=== PATIENT | male | born 1940 | race Caucasian/White ===

== ENCOUNTER 2016-12-25 09:09 | Emergency (ER) | payer MEDICARE, BC ==
[~2016-12-25] VITALS: Ht 180.3 cm; Wt 97.5 kg
[~2016-12-25 09:09] MED LIST: ALLO300T PO; ASPI325T11 PO; DORZ1DRO5 OP; EXEN10PE3 SQ; FENO145T PO; GABA-586 PO; GLIP5TAB22 PO; METF-620 PO; METF500T PO; METF500T4 PO; METO-269 PO; NAPR500T3 PO; OMEG-33 PO; OMEP40CA5 PO; PANT40TA3 PO; SERT100T8 PO
--- NOTE | 2016-12-25 10:11 | RAD ---
AP pelvis to include AP and lateral radiographs of the right hip 12/25/2016 Clinical history: Right hip pain post fall. An AP digital radiograph of the pelvis to include both hips was obtained. AP and lateral digital radiographs of the right hip were obtained. No pelvic bone fracture is seen. Both hips are intact. Specifically no fracture or dislocation of the right hip is seen. Degenerative changes are seen involving the lower lumbar spine and both hips. Impression: No fracture or dislocation is seen.
[2016-12-25] MEDS ORDERED: fentaNYL PF VIAL 100 MCG/2 ML VIAL IV PRN (10:45)
[2016-12-25] MEDS ORDERED: IV NORMAL SALINE 500ML BAG 500 ML IV ONE (11:00)
[2016-12-25 11:04] VITALS: BP 170/71
--- NOTE | 2016-12-25 11:55 | RAD ---
CT scan of the pelvis without contrast 12/25/2016 Clinical history: Pelvic and right hip pain post fall. Technique: Unenhanced, contiguous, 0.65 mm axial sections were obtained through the pelvis and both hips. 3 mm reconstructed sagittal, axial and coronal images were obtained. One or more of the following individualized dose reduction techniques were utilized for this study: 1. Automated exposure control. 2. Adjustment of the mA and/or kV according to patient size. 3. Use of iterative reconstruction technique. Findings: Comparison is made to the patient's radiographs of the pelvis and right hip performed earlier today. No pelvic bone fracture is seen. No fracture or dislocation of either hip is seen. Moderate degenerative changes are seen involving the lower lumbar spine. Mild to moderate degenerative changes are seen involving both SI joints and both hips. Mild atherosclerotic calcification of the distal abdominal aorta and its branches is noted. Multiple diverticula are seen involving the sigmoid colon. No inflammatory changes are seen in the adjacent fat. No free fluid is seen within the pelvis. No pelvic hematoma is seen. Impression: No acute abnormality is seen.
[2016-12-25] MEDS ORDERED: HYDR-2758 PO (12:40)
--- NOTE | 2016-12-25 12:40 | PHYS DOC ---
Past Medical History Past Medical History: Diabetes-Type II, Hypertension Additional Past Medical Histor: SHINGLES Past Surgical History: Other Additional Past Surgical Histo: R LEG SX, BACK SX Alcohol Use: None Drug Use: None Adult General Chief Complaint Chief Complaint: HIP PAIN HPI HPI 76-year-old male presenting to the emergency department after sustaining a mechanical fall. She reports injuring his right hip. He denies head injury. He denies being on blood thinners. He was able to ambulate after the event. His pain is worse with walking. Alleviated by rest. He denies chest pain or shortness of breath. Review of systems was negative for abdominal pain nausea vomiting or any other injuries. All other review of systems is negative unless otherwise noted in history of present illness. ED course: 76-year-old male presenting with right hip pain after falling. Initially x-ray of the hip unremarkable. CT obtained given patient's pain with weight. CT unremarkable for occult injury. Patient was able to ambulate in the emergency department. He is prescribed oral pain medications to follow-up with his doctor in 2-3 days. If his pain continues the patient will likely need an MRI of his hip. The patient was then discharged home in stable condition to follow up with their primary care physician over the next 2-3 days. They were to return if their symptoms worsened or if they were concerned for any reason. [id number] discharge instructions and return precautions were given. Patient' s questions were answered to their satisfaction. Patient is comfortable plan. Review of Systems Review of Systems SEE ABOVE. Current Medications Current Medications Current Medications Medications (Trade) Dose Ordered Sig/Jaylan Start Time Stop Time Status Last Admin Dose Admin Fentanyl Citrate (Fentanyl 2ml Vial) 50 mcg PRN Q30MIN PRN 12/25/16 10:45 12/25/16 23:00 12/25/16 11:06 50 MCG Sodium Chloride 500 ml @ 500 mls/hr 1X ONCE 12/25/16 11:00 12/25/16 11:59 DC 12/25/16 11:05 500 MLS/HR Allergies Allergies Allergies Coded Allergies Type Severity Reaction Last Updated Verified Penicillins Allergy Intermediate 10/11/13 Yes metronidazole Allergy Intermediate 10/11/13 Yes niacin Allergy Intermediate 10/11/13 Yes Physical Exam Physical Exam SEE ABOVE Constitutional: Well developed, well nourished, no acute distress, non-toxic appearance. [] HENT: Normocephalic, atraumatic, bilateral external ears normal, oropharynx moist, no oral exudates, nose normal. [] Eyes: PERRLA, EOMI, conjunctiva normal, no discharge. [] Neck: Normal range of motion, no tenderness, supple, no stridor. [] Cardiovascular:Heart rate regular rhythm, no murmur [] Lungs & Thorax: Bilateral breath sounds clear to auscultation [] Abdomen: Bowel sounds normal, soft, no tenderness, no masses, no pulsatile masses. [] Skin: Warm, dry, no erythema, no rash. [] Back: No tenderness, no CVA tenderness. [] Extremities: The patient's right lower extremity is warm and well perfused with palpable pulse. 2 second cap refill. Mild pain with passive range of motion of the right hip. Otherwise nontender knee with normal range of motion. Neurologic: Alert and oriented X 3, normal motor function, normal sensory function, no focal deficits noted. [] Psychologic: Affect normal, judgement normal, mood normal. [] Current Patient Data Vital Signs Vital Signs Date Time Temp Pulse Resp B/P (MAP) Pulse Ox O2 Delivery O2 Flow Rate FiO2 12/25/16 11:06 18 97 Room Air 12/25/16 09:54 98.9 65 98.9 EKG EKG [] Radiology/Procedures Radiology/Procedures [] Course & Med Decision Making Course & Med Decision Making Pertinent Labs and Imaging studies reviewed. (See chart for details) [] Dragon Disclaimer Dragon Disclaimer This electronic medical record was generated, in whole or in part, using a voice recognition dictation system. Departure Departure Impression: Primary Impression: Right hip pain Additional Impression: Fall Disposition: 01 HOME, SELF-CARE Condition: STABLE Referrals: ANASTASIYA OH MD (PCP) Patient Instructions: Hip Pain Additional Instructions: Thank you for allowing us to participate in your care today. Followup with your primary care physician in 3 days if your symptoms do not improve. Call your Primary Doctor tomorrow and inform them of your visit today. If you do not have a primary care provider you can ask for a list of our primary care providers. Return to the emergency department you have any new or concerning findings. If your symptoms do not resolve in the next 5-7 days you may need an MRI of the hip. This should be evaluated by the primary care physician and any necessary consulting services for continued management within a few days after discharge. Return to emergency room if you have any new or concerning symptoms including but not limited to fever, chills, nausea, vomiting, intractable pain, any new rashes, chest pain, shortness of air, uncontrolled bleeding, difficulty breathing, and/or vision loss. You may have been prescribed medication that can change in your level of thinking and ability to operate machinery. These medications include hydrocodone and Ativan. Also, Benadryl has been known to do this as well. Be sure to check with your pharmacist and ask if the medications you've prescribed can affect your level of consciousness. I recommend not operating heavy machinery or driving while on medication such as these. Scripts Hydrocodone Bit/Acetaminophen (HYDROCODONE-APAP 5-325 ) 1 Each Tablet 1 TAB PO PRN Q6HRS Y for PAIN, #15 TAB 0 Refills Be careful as this medication may cause you to be drowsy or tired. Do not drive on this medication. Prov: NALDO MARIE MD 12/25/16 Problem Qualifiers NALDO MARIE MD Dec 25, 2016 12:40
== END 2016-12-25 12:52 | disposition home or self-care (01) ==
LOC: ER 09:09
DX: S79.911A Unspecified injury of right hip, initial encounter (principal); E11.9 Type 2 diabetes mellitus without complications; I10 Essential (primary) hypertension; Z88.0 Allergy status to penicillin; Z88.8 Allergy status to other drugs, medicaments and biological substances; W19.XXXA Unspecified fall, initial encounter; Y93.89 Activity, other specified; Y92.89 Other specified places as the place of occurrence of the external cause; Y99.8 Other external cause status
CPT/HCPCS: 72192; 73502; 96361; 96374; 99284; J3010; J7040

== ENCOUNTER 2017-08-23 09:45 | Observation (INO) | payer MEDICARE, BC ==
[2017-08-23 10:00] LABS: POC GLUCOSE 232 mg/dL (70-99)
[2017-08-23 10:32] LABS: ADD MAN DIFF? NO
[2017-08-23 10:36] LABS: BASO # 0.1 x10^3/uL (0.0-0.2); BASO % 1 % (0-3); EOS # 0.2 x10^3/uL (0.0-0.7); EOS % 2 % (0-3); HEMATOCRIT 40.8 % (39.0-53.0); HEMOGLOBIN 14.1 g/dL (13.0-17.5); LYMPH % 11 % (24-48); MEAN CORPUSCULAR HEMOGLOBIN 32 pg (25-35); MEAN CORPUSCULAR HGB CONC 35 g/dL (31-37); MEAN CORPUSCULAR VOLUME 94 fL (79-100); MONO # 0.8 x10^3/uL (0.0-1.1); MONO % 9 % (0-9); NEUT # 6.9 x10^3uL (1.8-7.7); NEUT % 78 % (31-73); PLATELET COUNT 210 x10^3/uL (140-400); RED BLOOD COUNT 4.34 x10^6/uL (4.30-5.70); RED CELL DISTRIBUTION WIDTH 13.9 % (11.5-14.5); WHITE BLOOD COUNT 8.9 x10^3/uL (4.0-11.0)
[2017-08-23 10:43] LABS: ANION GAP 11 (6-14); BLOOD UREA NITROGEN 25 mg/dL (8-26); BUN/CREATININE RATIO 18 (6-20); CALCIUM 9.8 mg/dL (8.5-10.1); CARBON DIOXIDE 29 mmol/L (21-32); CHLORIDE 102 mmol/L (98-107); CREATININE 1.4 mg/dL (0.7-1.3); GFR 49.4; GLUCOSE 235 mg/dL (70-99); POTASSIUM 3.8 mmol/L (3.5-5.1); SODIUM 142 mmol/L (136-145)
[2017-08-23 10:49] LABS: ALBUMIN 3.7 g/dL (3.4-5.0); ALBUMIN/GLOBULIN RATIO 0.8 (1.0-1.7); ALK PHOS 68 U/L (46-116); ALT (SGPT) 44 U/L (16-63); AST (SGOT) 60 U/L (15-37); TOTAL BILIRUBIN 0.7 mg/dL (0.2-1.0); TOTAL PROTEIN 8.3 g/dL (6.4-8.2)
[2017-08-23 10:51] LABS: INR 1.1 (0.8-1.1); PARTIAL THROMBOPLASTIN TIME 33 SEC (24-38); PROTHROMBIN TIME PATIENT 13.4 SEC (11.7-14.0)
[2017-08-23 10:53] LABS: TROPONINI < 0.017 ng/mL (0.000-0.055)
[2017-08-23 15:44] LABS: BILIRUBIN,URINE SMALL (NEG); CLARITY,URINE CLEAR; COLOR,URINE AMBER; GLUCOSE,URINE >=1000 mg/dL (NEG); NITRITE,URINE NEGATIVE (NEG); PH,URINE 5.5; PROTEIN,URINE >=300 mg/dL (NEG-TRACE); UROBILINOGEN,URINE 0.2 mg/dL (0.2 mg/dL)
[2017-08-23 15:49] LABS: AMPHETAMINE/METHAMPHETAMINE NEG (NEG); BARBITURATES NEG (NEG); BENZODIAZEPINES NEG (NEG); CANNABINOIDS NEG (NEG); COCAINE NEG (NEG); ETHANOL, URINE NEG (NEG); METHADONE NEG (NEG); OPIATES NEG (NEG); PHENCYCLIDINE NEG (NEG)
[2017-08-23 15:54] LABS: RBC,URINE 20-40 /HPF (0-2); WBC,URINE 20-40 /HPF (0-4)
[2017-08-23 15:55] LABS: BACTERIA,URINE 0 /HPF (0-FEW); HYALINE CASTS, URINE MODERATE /HPF
[2017-08-23] MEDS ORDERED: MAGNESIUM HYDROXIDE 2,400 MG/30 ML ORAL.SUSP. PO (17:15)
[2017-08-23] MEDS ORDERED: ACETAMINOPHEN 325 MG TABLET. PO (17:15)
[2017-08-23] MEDS: SERTRALINE 50 MG TABLET. PO (18:40)
[2017-08-23] MEDS: ALLOPURINOL 100 MG TABLET. PO (18:40)
[2017-08-23] MEDS: OMEGA-3 FATTY ACIDS/FISH OIL 1,000 MG CAPSULE. PO (18:40)
[2017-08-23] MEDS: ASPIRIN 325 MG TABLET PO (18:40)
[2017-08-23] MEDS: METOPROLOL SUCC 24HR ER 50 MG TAB.ER.24H. PO (18:41)
[2017-08-23] MEDS: PANTOPRAZOLE 40 MG TABLET.DR. PO (18:41)
[2017-08-23] MEDS: INSULIN LISPRO 300 UNITS/3 ML INSULN.PEN. SQ (18:45)
[2017-08-23] MEDS: GABAPENTIN 300 MG CAPSULE. PO (21:44)
[2017-08-23] MEDS: ENOXAPARIN 40 MG/0.4 ML SYRINGE. SQ (21:44)
[2017-08-23] MEDS: INSULIN GLARGINE 300 UNITS/3 ML INSULN.PEN. SQ (21:48)
[2017-08-24 05:43] LABS: CHOLESTEROL 167 mg/dL (0-200); HDLC 21 mg/dL (40-60); LDLC 86 mg/dL (0-100); NON-HDL CHOLESTEROL 146 mg/dL (0-129); TRIGLYCERIDES 298 mg/dL (0-150); VLDLC 60 mg/dL (0-40)
[2017-08-24 05:55] LABS: THYROID STIM HORMONE (TSH) 0.619 uIU/mL (0.358-3.74)
[2017-08-24 06:50] LABS: POC GLUCOSE 218 mg/dL (70-99)
[2017-08-24 06:52] LABS: POC GLUCOSE 264 mg/dL (70-99)
[2017-08-24 08:56] LABS: POC GLUCOSE 239 mg/dL (70-99)
[2017-08-24 09:16] LABS: VITAMIN-B12 514 pg/mL (247-911)
[2017-08-24] MEDS: SERTRALINE 50 MG TABLET. PO (09:28)
[2017-08-24] MEDS: GABAPENTIN 300 MG CAPSULE. PO ×3 (09:28→20:26)
[2017-08-24] MEDS: PANTOPRAZOLE 40 MG TABLET.DR. PO (09:29)
[2017-08-24] MEDS: metFORMIN XR 500 MG TAB.ER.24H PO (09:29)
[2017-08-24] MEDS: ALLOPURINOL 100 MG TABLET. PO (09:29)
[2017-08-24] MEDS: ASPIRIN 325 MG TABLET PO (09:29)
[2017-08-24] MEDS: OMEGA-3 FATTY ACIDS/FISH OIL 1,000 MG CAPSULE. PO (09:29)
[2017-08-24] MEDS: glipiZIDE ER 2.5 MG TAB.ER.24 PO (09:30)
[2017-08-24] MEDS: METOPROLOL SUCC 24HR ER 50 MG TAB.ER.24H. PO (09:31)
[2017-08-24 10:26] LABS: HEMOGLOBIN A1C 7.5 % (4.8-5.6)
[2017-08-24 12:01] LABS: POC GLUCOSE 364 mg/dL (70-99)
[2017-08-24] MEDS: INSULIN LISPRO 300 UNITS/3 ML INSULN.PEN. SQ ×2 (12:04→17:37)
[2017-08-24 17:05] LABS: POC GLUCOSE 188 mg/dL (70-99)
[2017-08-24 18:50] LABS: CREATINE KINASE 408 U/L (39-308)
[2017-08-24 19:14] LABS: VITAMIN-B12 592 pg/mL (247-911)
[2017-08-24] MEDS: ATORVASTATIN CALCIUM 10 MG TABLET. PO (20:26)
[2017-08-24] MEDS: ENOXAPARIN 40 MG/0.4 ML SYRINGE. SQ (20:26)
[2017-08-24] MEDS: INSULIN GLARGINE 300 UNITS/3 ML INSULN.PEN. SQ (20:31)
[2017-08-24 20:32] LABS: POC GLUCOSE 190 mg/dL (70-99)
[2017-08-25] MEDS: glipiZIDE ER 2.5 MG TAB.ER.24 PO (08:47)
[2017-08-25] MEDS: ALLOPURINOL 100 MG TABLET. PO (08:47)
[2017-08-25] MEDS: PANTOPRAZOLE 40 MG TABLET.DR. PO (08:49)
[2017-08-25] MEDS: ASPIRIN 325 MG TABLET PO (08:49)
[2017-08-25] MEDS: SERTRALINE 50 MG TABLET. PO (08:49)
[2017-08-25] MEDS: METOPROLOL SUCC 24HR ER 50 MG TAB.ER.24H. PO (08:49)
[2017-08-25] MEDS: OMEGA-3 FATTY ACIDS/FISH OIL 1,000 MG CAPSULE. PO (08:49)
[2017-08-25] MEDS: GABAPENTIN 300 MG CAPSULE. PO ×3 (08:49→22:59)
[2017-08-25] MEDS: metFORMIN XR 500 MG TAB.ER.24H PO (08:49)
[2017-08-25] MEDS: INSULIN LISPRO 300 UNITS/3 ML INSULN.PEN. SQ ×3 (08:51→17:15)
[2017-08-25 11:58] LABS: POC GLUCOSE 258 mg/dL (70-99)
[2017-08-25 17:19] LABS: POC GLUCOSE 250 mg/dL (70-99)
[2017-08-25 17:19] LABS: POC GLUCOSE 211 mg/dL (70-99)
[2017-08-25 21:02] LABS: POC GLUCOSE 295 mg/dL (70-99)
[2017-08-25] MEDS: INSULIN GLARGINE 300 UNITS/3 ML INSULN.PEN. SQ (22:56)
[2017-08-25] MEDS: ENOXAPARIN 40 MG/0.4 ML SYRINGE. SQ (22:58)
[2017-08-25] MEDS: ATORVASTATIN CALCIUM 10 MG TABLET. PO (22:58)
[2017-08-26 04:19] LABS: POC GLUCOSE 208 mg/dL (70-99)
[2017-08-26] MEDS: PANTOPRAZOLE 40 MG TABLET.DR. PO (07:56)
[2017-08-26] MEDS: INSULIN LISPRO 300 UNITS/3 ML INSULN.PEN. SQ ×2 (07:59→11:30)
[2017-08-26 08:04] LABS: POC GLUCOSE 195 mg/dL (70-99)
[2017-08-26] MEDS: ASPIRIN 325 MG TABLET PO (08:43)
[2017-08-26] MEDS: OMEGA-3 FATTY ACIDS/FISH OIL 1,000 MG CAPSULE. PO (08:43)
[2017-08-26] MEDS: ALLOPURINOL 100 MG TABLET. PO (08:43)
[2017-08-26] MEDS: metFORMIN XR 500 MG TAB.ER.24H PO (08:43)
[2017-08-26] MEDS: SERTRALINE 50 MG TABLET. PO (08:44)
[2017-08-26] MEDS: GABAPENTIN 300 MG CAPSULE. PO ×2 (08:44→13:42)
[2017-08-26] MEDS: METOPROLOL SUCC 24HR ER 50 MG TAB.ER.24H. PO (08:44)
[2017-08-26] MEDS: glipiZIDE ER 2.5 MG TAB.ER.24 PO (08:45)
[2017-08-26 09:13] LABS: PLATELET COUNT 215 x10^3/uL (140-400)
[2017-08-26 09:20] LABS: GFR 45.6
[2017-08-26 09:20] LABS: CREATININE 1.5 mg/dL (0.7-1.3)
[2017-08-26 11:24] LABS: POC GLUCOSE 214 mg/dL (70-99)
== END 2017-08-26 15:00 | disposition home health service (06) ==
LOC: ER 09:45 → ED HOLD 14:01 → 5 NORTH 16:33
PROVIDERS: Internal Medicine
DX: R29.6 Repeated falls (principal); E11.42 Type 2 diabetes mellitus with diabetic polyneuropathy; E11.65 Type 2 diabetes mellitus with hyperglycemia; E11.21 Type 2 diabetes mellitus with diabetic nephropathy; E11.22 Type 2 diabetes mellitus with diabetic chronic kidney disease; E04.2 Nontoxic multinodular goiter; E78.5 Hyperlipidemia, unspecified; G89.29 Other chronic pain; I12.9 Hypertensive chronic kidney disease with stage 1 through stage 4 chronic kidney disease, or unspecified chronic kidney disease; I25.10 Atherosclerotic heart disease of native coronary artery without angina pectoris; I25.2 Old myocardial infarction; K21.9 Gastro-esophageal reflux disease without esophagitis; N18.3 Chronic kidney disease, stage 3 (moderate); N39.0 Urinary tract infection, site not specified; E66.9 Obesity, unspecified
CPT/HCPCS: 36415; 70450; 70551; 71046; 72125; 80053; 80061; 80307; 81001; 82306; 82550; 82565; 82607; 82962; 83036; 84443; 84484; 85025; 85049; 85610; 85730; 87086; 92523-GN; 93005; 95816; 96372; 97110-GP; 97116-GP; 97162-GP; 97166-GO; 97530-GO; 97535-GO; 99285-25; G0378; G0379; G8987-CJ-GO; G8988-CI-GO; G9168-CK-GN; G9169-CK-GN; J1650; J1815

== ENCOUNTER 2018-01-25 15:12 | Inpatient (IN) | payer MEDICARE ==
[~2018-01-25] VITALS: Ht 180.3 cm; Wt 88.5 kg
[~2018-01-25 15:12] MED LIST changes: +ALLO100T PO; -DORZ1DRO5 OP; +DORZ1DRO5 OU; +GLIP2.5T4 PO; +HYDR-2758 PO; -METF-620 PO; +METF10007 PO; +METF500T16 PO; +METF500T3 PO; -METF500T4 PO; +NAPR-514 PO; -NAPR500T3 PO
[2018-01-25] MEDS ORDERED: VANCOMYCIN PER PHARMACY MC ONE (15:30)
--- NOTE | 2018-01-25 15:42 | PHYS DOC ---
Past Medical History Past Medical History: Diabetes-Type II, Hypertension, Other Additional Past Medical Histor: SHINGLES Past Surgical History: Other Additional Past Surgical Histo: R LEG SX, BACK SX Alcohol Use: None Drug Use: None Adult General Chief Complaint Chief Complaint: CELLULITIS HPI HPI 77-year-old male presents for evaluation of diabetic ulcer and cellulitis to the left foot. He was sent to the emergency room by , his parts clerk plant maintenance. Patient states his blood sugars have been in the low 200s. He denies any pain but states he noticed yesterday that the foot was red. Denies any injuries. Denies fevers or vomiting. Review of Systems Review of Systems Constitutional: Denies fever or chills [] Respiratory: Denies cough or shortness of breath [] Cardiovascular: No additional information not addressed in HPI [] GI: Denies abdominal pain, nausea, vomiting, bloody stools or diarrhea [] Musculoskeletal: Denies back pain or joint pain [] Integument: Denies rash or skin lesions [] Neurologic: Denies headache, focal weakness or sensory changes [] All other systems were reviewed and found to be within normal limits, except as documented in this note. Current Medications Current Medications Current Medications Medications (Trade) Dose Ordered Sig/Jaylan Start Time Stop Time Status Last Admin Dose Admin Clindamycin Phosphate 50 ml @ 100 mls/hr 1X ONCE 01/25/18 15:45 01/25/18 16:14 DC 01/25/18 16:17 100 MLS/HR Vancomycin HCl (Vanco Per Pharmacy) 1 each 1X ONCE 01/25/18 15:30 01/25/18 15:31 UNV Vancomycin HCl 2 gm/Sodium Chloride 500 ml @ 250 mls/hr 1X ONCE 01/25/18 15:45 01/25/18 17:44 DC 01/25/18 16:50 250 MLS/HR Allergies Allergies Allergies Coded Allergies Type Severity Reaction Last Updated Verified Penicillins Allergy Intermediate 01/25/18 Yes metronidazole Allergy Intermediate 01/25/18 Yes niacin Allergy Intermediate 01/25/18 Yes Physical Exam Physical Exam Constitutional: Well developed, well nourished, no acute distress, non-toxic appearance. [] Neck: Normal range of motion, no tenderness, supple, no stridor. [] Cardiovascular:Heart rate regular rhythm, no murmur [] Lungs & Thorax: Bilateral breath sounds clear to auscultation [] Skin: DORSAL ASPECT LEFT FOOT ULCERATION, PURULENT DRAINAGE, SURROUNDING ERYTHEMA AND WARMTH CONSISTENT C CELLULITIS Extremities: No tenderness, no cyanosis, no clubbing, ROM intact, no edema. [] Neurologic: Alert and oriented X 3, normal motor function, normal sensory function, no focal deficits noted. [] Psychologic: Affect normal, judgement normal, mood normal. [] Current Patient Data Vital Signs Vital Signs Date Time Temp Pulse Resp B/P (MAP) Pulse Ox O2 Delivery O2 Flow Rate FiO2 01/25/18 16:20 76 18 153/75 (101) 94 Room Air 01/25/18 15:20 98.0 98.0 Lab Values Laboratory Tests Test 01/25/18 15:50 White Blood Count 11.2 x10^3/uL (4.0-11.0) H Red Blood Count 4.40 x10^6/uL (4.30-5.70) Hemoglobin 14.5 g/dL (13.0-17.5) Hematocrit 41.4 % (39.0-53.0) Mean Corpuscular Volume 94 fL (79-100) Mean Corpuscular Hemoglobin 33 pg (25-35) Mean Corpuscular Hemoglobin Concent 35 g/dL (31-37) Red Cell Distribution Width 13.7 % (11.5-14.5) Platelet Count 178 x10^3/uL (140-400) Neutrophils (%) (Auto) 80 % (31-73) H Lymphocytes (%) (Auto) 9 % (24-48) L Monocytes (%) (Auto) 7 % (0-9) Eosinophils (%) (Auto) 2 % (0-3) Basophils (%) (Auto) 1 % (0-3) Neutrophils # (Auto) 9.0 x10^3uL (1.8-7.7) H Lymphocytes # (Auto) 1.1 x10^3/uL (1.0-4.8) Monocytes # (Auto) 0.8 x10^3/uL (0.0-1.1) Eosinophils # (Auto) 0.2 x10^3/uL (0.0-0.7) Basophils # (Auto) 0.1 x10^3/uL (0.0-0.2) Sodium Level 138 mmol/L (136-145) Potassium Level 4.6 mmol/L (3.5-5.1) Chloride Level 100 mmol/L (98-107) Carbon Dioxide Level 29 mmol/L (21-32) Anion Gap 9 (6-14) Blood Urea Nitrogen 25 mg/dL (8-26) Creatinine 1.6 mg/dL (0.7-1.3) H Estimated GFR (Cockcroft-Gault) 42.3 BUN/Creatinine Ratio 16 (6-20) Glucose Level 243 mg/dL (70-99) H Calcium Level 10.0 mg/dL (8.5-10.1) Total Bilirubin 0.6 mg/dL (0.2-1.0) Aspartate Amino Transferase (AST) 21 U/L (15-37) Alanine Aminotransferase (ALT) 30 U/L (16-63) Alkaline Phosphatase 59 U/L (46-116) Total Protein 8.4 g/dL (6.4-8.2) H Albumin 4.0 g/dL (3.4-5.0) Albumin/Globulin Ratio 0.9 (1.0-1.7) L Laboratory Tests 01/25/18 15:50 Laboratory Tests 01/25/18 15:50 EKG EKG [] Radiology/Procedures Radiology/Procedures [PROCEDURE: FOOT LEFT 3V FOOT LEFT 3V Clinical Indication: Pain and swelling, pt is diabetic Comparison: Left foot, 3 views, November 16, 2014. Findings: Old healed fracture deformities with mild angulation of the distal tibia and fibula. Hammertoe deformities of all the toes. Mild dorsal soft tissue swelling is seen. Tiny calcaneal enthesophytes. Arterial calcifications. Tibiotalar DJD. No acute fracture. No bony erosion is seen. Os peroneum redemonstrated. IMPRESSION: No acute bone abnormality. Electronically signed by: Agus Muller MD (01/25/2018 4:14 PM) [id number] DICTATED and SIGNED BY: AGUS MULLER MD DATE: 01/25/18 1610 ] Course & Med Decision Making Course & Med Decision Making Pertinent Labs and Imaging studies reviewed. (See chart for details) [Patient is admitted to Dr. Arnett for IV antibiotics, infectious disease consulted. Patient is stable for admit.] Dragon Disclaimer Dragon Disclaimer This electronic medical record was generated, in whole or in part, using a voice recognition dictation system. Departure Departure Impression: Primary Impression: Cellulitis Additional Impression: Diabetic foot ulcer Disposition: 09 ADMITTED INPATIENT Admitting Physician: Other Condition: STABLE Referrals: ANASTASIYA ARNETT MD (PCP) Problem Qualifiers JADEN CARDENAS APRN Jan 25, 2018 15:42
[2018-01-25] MEDS ORDERED: VANCOMYCIN 2 GM in IV NORMAL SALINE 500ML BAG 500 ML IV ONE (15:45)
[2018-01-25] MEDS ORDERED: CLINDAMYCIN 600MG PREMIX 50 ML IV ONE (15:45)
[2018-01-25 16:15] LABS: BASO # 0.1 x10^3/uL (0.0-0.2); BASO % 1 % (0-3); EOS # 0.2 x10^3/uL (0.0-0.7); EOS % 2 % (0-3); HEMATOCRIT 41.4 % (39.0-53.0); HEMOGLOBIN 14.5 g/dL (13.0-17.5); LYMPH # 1.1 x10^3/uL (1.0-4.8); LYMPH % 9 % (24-48); MEAN CORPUSCULAR HEMOGLOBIN 33 pg (25-35); MEAN CORPUSCULAR HGB CONC 35 g/dL (31-37); MEAN CORPUSCULAR VOLUME 94 fL (79-100); MONO # 0.8 x10^3/uL (0.0-1.1); MONO % 7 % (0-9); NEUT % 80 % (31-73); PLATELET COUNT 178 x10^3/uL (140-400); RED CELL DISTRIBUTION WIDTH 13.7 % (11.5-14.5); WHITE BLOOD COUNT 11.2 x10^3/uL (4.0-11.0)
--- NOTE | 2018-01-25 16:16 | RAD ---
FOOT LEFT 3V Clinical Indication: Pain and swelling, pt is diabetic Comparison: Left foot, 3 views, November 16, 2014. Findings: Old healed fracture deformities with mild angulation of the distal tibia and fibula. Hammertoe deformities of all the toes. Mild dorsal soft tissue swelling is seen. Tiny calcaneal enthesophytes. Arterial calcifications. Tibiotalar DJD. No acute fracture. No bony erosion is seen. Os peroneum redemonstrated. IMPRESSION: No acute bone abnormality. Electronically signed by: Agus Muller MD (01/25/2018 4:14 PM) [id number]
[2018-01-25 16:44] LABS: CREATININE 1.6 mg/dL (0.7-1.3); GFR 42.3; POTASSIUM 4.6 mmol/L (3.5-5.1)
[2018-01-25 16:51] LABS: ALBUMIN/GLOBULIN RATIO 0.9 (1.0-1.7); TOTAL BILIRUBIN 0.6 mg/dL (0.2-1.0); TOTAL PROTEIN 8.4 g/dL (6.4-8.2)
--- NOTE | 2018-01-25 18:21 | PDOC ---
Provider Note Provider Note history and physical dictated # [id number] ANASTASIYA OH MD Jan 25, 2018 18:20
[2018-01-25] MEDS ORDERED: VANCOMYCIN PER PHARMACY MC PRN (18:30)
[2018-01-25] MEDS ORDERED: MAGNESIUM HYDROXIDE 2,400 MG/30 ML ORAL.SUSP. PO PRN (18:30)
[2018-01-25] MEDS ORDERED: HYDROcodone/APAP 5/325MG 1 TAB TABLET PO PRN (18:30)
--- NOTE | 2018-01-25 18:43 | HP ---
ADMIT DATE: 01/25/2018 HISTORY OF PRESENT ILLNESS: The patient is a 77-year-old white male with history of diabetes mellitus type 2 with diabetic nephropathy with chronic kidney disease stage 3, hypertension, hyperlipidemia, coronary artery disease, who noted a 2-day history of pain and redness in his left foot and saw his private sector executive today, Dr. Pop who noted that he had a diabetic foot ulcer with cellulitis involving his left foot, the ulcer was in the plantar aspect of his left foot. The patient was sent to the [facility] Emergency Room for IV antibiotics and evaluation and treatment and an MRI of the left foot to rule out osteomyelitis. In the Emergency Room, the x-ray of the left foot was negative for acute abnormality; however, his white count was slightly elevated over 11,000. He denied any fever or chills. Denied stepping on anything or developing of foot ulcer that he was aware of, but it is on the plantar side of his foot. He is therefore admitted for further evaluation of his left foot ulcer with cellulitis. ALLERGIES AND INTOLERANCES: INCLUDE PENICILLIN, FLAGYL AND NIACIN. HE HAS INTOLERANCE TO METFORMIN. MEDICATIONS: Include allopurinol 200 mg every day, aspirin 325 mg every day, atorvastatin 10 mg every day, Byetta 10 mg subcutaneous b.i.d., gabapentin 300 mg t.i.d., glipizide ER 10 mg every day, Lovaza 4 grams daily, metoprolol succinate 50 mg every day, Protonix 40 mg every day, sertraline 150 mg every day and TriCor 145 mg every day. PAST MEDICAL HISTORY: Significant for diabetes mellitus type 2 with nephropathy with chronic kidney disease stage 3, hypertension, hyperlipidemia, coronary artery disease, gout. He has a history of a multinodular goiter, gastroesophageal reflux disease and history of esophagitis, diverticulosis, depression and deep vein thrombosis in the left leg in 2006, open reduction and internal fixation for left tibial fracture, left tympanic membrane repair, laminectomy and right cataract extraction. SOCIAL HISTORY: Does not drink alcohol nor does he smoke cigarettes. He is . FAMILY HISTORY: Noncontributory. REVIEW OF SYSTEMS: GENERAL: He denies any fever, chills or sweats in the last 3 days. CARDIOVASCULAR: No chest pain. PULMONARY: No cough or shortness of breath. GASTROINTESTINAL: No constipation. SKIN: He has got the left foot ulcer and cellulitis in left foot. ENDOCRINE: He has diabetes mellitus. The rest of systems reviewed and negative except as stated in history of present illness. PHYSICAL EXAMINATION: VITAL SIGNS: Temperature is 98 degrees, apical pulse regular at 75, respiratory rate 20, blood pressure 146/69, oxygen saturation 97% on room air. HEENT: Eyes: Gaze is conjugate. Mouth: Tongue is midline. NECK: There is no cervical lymphadenopathy or thyroid enlargement. HEART: Reveals an S1, S2. There is no S3 or murmur. LUNGS: Clear. ABDOMEN: Obese and soft with no hepatosplenomegaly, masses or tenderness. EXTREMITIES: Lower extremities without edema. Examination of his left foot shows his dorsalis pedis pulse is 2+. On his left foot, he has got a plantar ulcer in the metatarsal area. It seems to be dry, but the nurse practitioner Emergency Room noted that there was purulent material coming out of it when she examined it and sent it for culture. He has got some redness and swelling in the plantar aspect of his foot and also in the dorsal aspect of his left foot. This is consistent with a cellulitis and he got hammertoes on the left side and right side. NEUROLOGIC: Revealed no focal weakness of the facial muscles or extremities. SKIN: He has got cellulitis in left foot. LABORATORY DATA: His white count was increased at 11.2, hemoglobin 14.5, platelet count 178,000; 80 polys, 9 lymphocytes. He had a serum sodium of 138, potassium 4.6, chloride 100, total CO2 of 29, BUN 25, creatinine 1.6, blood sugar 243. Liver function tests were normal. Albumin 4.0. An x-ray of the left foot showed no acute abnormality. He had some arterial calcifications. ASSESSMENT: 1. Left foot ulcer with cellulitis. 2. Diabetes mellitus type 2 with nephropathy. 3. Chronic kidney disease stage 3. 4. Hypertension. 5. Hyperlipidemia. 6. Coronary artery disease. 7. Leukocytosis. PLAN: At this time is to obtain a sed rate. We will consult Dr. Harvinder Sterling for Infectious Disease. We will get an MRI of his left foot to rule out any type of osteomyelitis and we will start him on IV meropenem and also Zyvox. We will hold off on vancomycin due to his chronic kidney disease. We will also wait for the cultures of his foot. We will admit him to the hospital as a full admit. We will resume most of his home medications and have to put him on a NovoLog insulin sliding scale. Apparently, he was given 2 grams of vancomycin IV in the Emergency Room and clindamycin 600 mg IV x 1, but I spoke with the nurse practitioner and recommended Zyvox and IV meropenem and repeat his CBC and BMP in the morning and monitor his blood sugars and put him on a diabetic diet. ANASTASIYA OH MD DR: SAMEER/blanka JOB#: [id number] / [id number]
[2018-01-25 19:00] VITALS: BP 126/99
--- NOTE | 2018-01-25 20:40 | EKG ---
[facility] [address] [place] [address] Test Date: 2018-01-25 Test Time: 19:33:05 Pat Name: TANK DEL REAL Department: Room: 444 1 Gender: M Automotive Refinish Technician: CAROL ANN : 1940 Requested By: ANASTASIYA OH Order Number: [id number] Reading MD: Glenn Altamirano MD Measurements Intervals [place] Rate: 74 P: 62 MT: 180 QRS: 7 QRSD: 84 T: 38 QT: 392 QTc: 436 Interpretive Statements SINUS RHYTHM NON-SPECIFIC ST/T CHANGES Electronically Signed On 01-26-2018 11:18:00 CDT by Glenn Altamirano MD
[2018-01-25] MEDS: LINEZOLID 600 MG TABLET PO SCH (21:54)
[2018-01-25] MEDS: GABAPENTIN 300 MG CAPSULE. PO SCH (21:54)
[2018-01-25] MEDS: MEROPENEM 500 MG in IV NORMAL SALINE 50ML 50 ML IV SCH (21:54)
[2018-01-25] MEDS: ATORVASTATIN CALCIUM 10 MG TABLET. PO SCH (21:55)
[2018-01-25 23:00] VITALS: BP_SYST 126; BP_SYST 128; BP_DIAS 97; BP_DIAS 99
[2018-01-26 03:00] VITALS: BP 124/97
[2018-01-26] MEDS: MEROPENEM 500 MG in IV NORMAL SALINE 50ML 50 ML IV SCH ×3 (05:49→21:10)
[2018-01-26] MEDS: HEPARIN for SUB-Q USE 5,000 UNIT/ML VIAL. SQ SCH ×2 (05:51→17:09)
[2018-01-26 06:14] LABS: BASO # 0.1 x10^3/uL (0.0-0.2); BASO % 1 % (0-3); EOS # 0.2 x10^3/uL (0.0-0.7); EOS % 3 % (0-3); HEMATOCRIT 38.2 % (39.0-53.0); HEMOGLOBIN 13.2 g/dL (13.0-17.5); LYMPH # 0.9 x10^3/uL (1.0-4.8); LYMPH % 12 % (24-48); MEAN CORPUSCULAR HEMOGLOBIN 33 pg (25-35); MEAN CORPUSCULAR HGB CONC 35 g/dL (31-37); MEAN CORPUSCULAR VOLUME 94 fL (79-100); MONO # 0.5 x10^3/uL (0.0-1.1); MONO % 7 % (0-9); NEUT # 5.6 x10^3uL (1.8-7.7); NEUT % 78 % (31-73); PLATELET COUNT 132 x10^3/uL (140-400); RED BLOOD COUNT 4.06 x10^6/uL (4.30-5.70); RED CELL DISTRIBUTION WIDTH 13.9 % (11.5-14.5); WHITE BLOOD COUNT 7.2 x10^3/uL (4.0-11.0)
[2018-01-26 06:30] LABS: CALCIUM 9.3 mg/dL (8.5-10.1); CREATININE 1.5 mg/dL (0.7-1.3); GFR 45.6; POTASSIUM 4.1 mmol/L (3.5-5.1)
[2018-01-26 07:00] VITALS: BP 123/60
[2018-01-26] MEDS ORDERED: INSULIN LISPRO 300 UNITS/3 ML INSULN.PEN. SQ SCH (08:00)
--- NOTE | 2018-01-26 08:16 | RAD ---
Portable chest, 01/25/2018: HISTORY: Hypertension Comparison is made to a study from 08/23/2017. The heart size and pulmonary vascularity are normal. No pulmonary infiltrates are seen. There is no evidence of pleural fluid. IMPRESSION: No acute cardiopulmonary abnormality is detected. Electronically signed by: Scar Vazquez MD (01/26/2018 8:13 AM) [facility]
[2018-01-26] MEDS: FENOFIBRATE,MICRONIZED 134 MG CAPSULE PO SCH (09:24)
[2018-01-26] MEDS: glipiZIDE ER 2.5 MG TAB.ER.24 PO SCH (09:25)
[2018-01-26] MEDS: LINEZOLID 600 MG TABLET PO SCH ×2 (09:25→21:09)
[2018-01-26] MEDS: SERTRALINE 50 MG TABLET. PO SCH (09:26)
[2018-01-26] MEDS: ASPIRIN 325 MG TABLET PO SCH (09:26)
[2018-01-26] MEDS: GABAPENTIN 300 MG CAPSULE. PO SCH ×3 (09:26→21:09)
[2018-01-26] MEDS: METOPROLOL SUCC 24HR ER 50 MG TAB.ER.24H. PO SCH (09:28)
[2018-01-26] MEDS: PANTOPRAZOLE 40 MG TABLET.DR. PO SCH (09:29)
[2018-01-26] MEDS: ACETAMINOPHEN 325 MG TABLET. PO PRN ×2 (09:29→21:09)
[2018-01-26] MEDS: ALLOPURINOL 100 MG TABLET. PO SCH (09:30)
--- NOTE | 2018-01-26 09:35 | PDOC ---
Infectious Disease Note Vital Sign Vital Signs Vital Signs Date Time Temp Pulse Resp B/P (MAP) Pulse Ox O2 Delivery O2 Flow Rate FiO2 01/26/18 03:00 97.7 70 14 124/97 (106) 96 Room Air 97.7 Labs Lab Laboratory Tests Test 01/25/18 15:50 01/25/18 21:27 01/26/18 05:42 White Blood Count 11.2 x10^3/uL (4.0-11.0) 7.2 x10^3/uL (4.0-11.0) Red Blood Count 4.40 x10^6/uL (4.30-5.70) 4.06 x10^6/uL (4.30-5.70) Hemoglobin 14.5 g/dL (13.0-17.5) 13.2 g/dL (13.0-17.5) Hematocrit 41.4 % (39.0-53.0) 38.2 % (39.0-53.0) Mean Corpuscular Volume 94 fL (79-100) 94 fL (79-100) Mean Corpuscular Hemoglobin 33 pg (25-35) 33 pg (25-35) Mean Corpuscular Hemoglobin Concent 35 g/dL (31-37) 35 g/dL (31-37) Red Cell Distribution Width 13.7 % (11.5-14.5) 13.9 % (11.5-14.5) Platelet Count 178 x10^3/uL (140-400) 132 x10^3/uL (140-400) Neutrophils (%) (Auto) 80 % (31-73) 78 % (31-73) Lymphocytes (%) (Auto) 9 % (24-48) 12 % (24-48) Monocytes (%) (Auto) 7 % (0-9) 7 % (0-9) Eosinophils (%) (Auto) 2 % (0-3) 3 % (0-3) Basophils (%) (Auto) 1 % (0-3) 1 % (0-3) Neutrophils # (Auto) 9.0 x10^3uL (1.8-7.7) 5.6 x10^3uL (1.8-7.7) Lymphocytes # (Auto) 1.1 x10^3/uL (1.0-4.8) 0.9 x10^3/uL (1.0-4.8) Monocytes # (Auto) 0.8 x10^3/uL (0.0-1.1) 0.5 x10^3/uL (0.0-1.1) Eosinophils # (Auto) 0.2 x10^3/uL (0.0-0.7) 0.2 x10^3/uL (0.0-0.7) Basophils # (Auto) 0.1 x10^3/uL (0.0-0.2) 0.1 x10^3/uL (0.0-0.2) Sodium Level 138 mmol/L (136-145) 137 mmol/L (136-145) Potassium Level 4.6 mmol/L (3.5-5.1) 4.1 mmol/L (3.5-5.1) Chloride Level 100 mmol/L (98-107) 101 mmol/L (98-107) Carbon Dioxide Level 29 mmol/L (21-32) 28 mmol/L (21-32) Anion Gap 9 (6-14) 8 (6-14) Blood Urea Nitrogen 25 mg/dL (8-26) 24 mg/dL (8-26) Creatinine 1.6 mg/dL (0.7-1.3) 1.5 mg/dL (0.7-1.3) Estimated GFR (Cockcroft-Gault) 42.3 45.6 BUN/Creatinine Ratio 16 (6-20) Glucose Level 243 mg/dL (70-99) 241 mg/dL (70-99) Calcium Level 10.0 mg/dL (8.5-10.1) 9.3 mg/dL (8.5-10.1) Total Bilirubin 0.6 mg/dL (0.2-1.0) Aspartate Amino Transf (AST/SGOT) 21 U/L (15-37) Alanine Aminotransferase (ALT/SGPT) 30 U/L (16-63) Alkaline Phosphatase 59 U/L (46-116) Total Protein 8.4 g/dL (6.4-8.2) Albumin 4.0 g/dL (3.4-5.0) Albumin/Globulin Ratio 0.9 (1.0-1.7) Glucose (Fingerstick) 234 mg/dL (70-99) Erythrocyte Sedimentation Rate 26 (0-15) Objective Assessment Left foot wound infection Left leg cellulitis Fever Leukocytosis DM CAD Plan Plan of Care zyvox and meropenem MRI off load supportive care ABRAM BENITES MD Jan 26, 2018 09:35
--- NOTE | 2018-01-26 10:53 | PDOC ---
PROGRESS NOTES Subjective Subjective feels better. febrile. temp 100.2 lab reviewed. sed rate 26. blood sugars high. [place] [facility] [place] Objective Objective Vital Signs Date Time Temp Pulse Resp B/P (MAP) Pulse Ox O2 Delivery O2 Flow Rate FiO2 01/26/18 09:28 70 124/97 01/26/18 07:00 100.2 18 94 Room Air 100.2 Intake and Output 01/26/18 07:00 Intake Total 50 ml Balance 50 ml Intake IV Total 50 ml # Voids 5 Physical Exam Abdomen: Soft Heart: Regular rate, Normal S1, Normal S2 Extremities: No edema General: Alert HEENT: Atraumatic Lungs: Clear to auscultation Neuro: Normal speech Psych/Mental Status: Mental status NL Skin: Other (plantar left foot wound and less redness dorsum left foot) Assessment Assessment Problems1. Infected Left foot ulcer with cellulitis. 2. Diabetes mellitus type 2 with nephropathy. 3. 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 Labs Laboratory Tests Test 01/25/18 15:50 01/25/18 21:27 01/26/18 05:42 White Blood Count 11.2 x10^3/uL (4.0-11.0) 7.2 x10^3/uL (4.0-11.0) Red Blood Count 4.40 x10^6/uL (4.30-5.70) 4.06 x10^6/uL (4.30-5.70) Hemoglobin 14.5 g/dL (13.0-17.5) 13.2 g/dL (13.0-17.5) Hematocrit 41.4 % (39.0-53.0) 38.2 % (39.0-53.0) Mean Corpuscular Volume 94 fL (79-100) 94 fL (79-100) Mean Corpuscular Hemoglobin 33 pg (25-35) 33 pg (25-35) Mean Corpuscular Hemoglobin Concent 35 g/dL (31-37) 35 g/dL (31-37) Red Cell Distribution Width 13.7 % (11.5-14.5) 13.9 % (11.5-14.5) Platelet Count 178 x10^3/uL (140-400) 132 x10^3/uL (140-400) Neutrophils (%) (Auto) 80 % (31-73) 78 % (31-73) Lymphocytes (%) (Auto) 9 % (24-48) 12 % (24-48) Monocytes (%) (Auto) 7 % (0-9) 7 % (0-9) Eosinophils (%) (Auto) 2 % (0-3) 3 % (0-3) Basophils (%) (Auto) 1 % (0-3) 1 % (0-3) Neutrophils # (Auto) 9.0 x10^3uL (1.8-7.7) 5.6 x10^3uL (1.8-7.7) Lymphocytes # (Auto) 1.1 x10^3/uL (1.0-4.8) 0.9 x10^3/uL (1.0-4.8) Monocytes # (Auto) 0.8 x10^3/uL (0.0-1.1) 0.5 x10^3/uL (0.0-1.1) Eosinophils # (Auto) 0.2 x10^3/uL (0.0-0.7) 0.2 x10^3/uL (0.0-0.7) Basophils # (Auto) 0.1 x10^3/uL (0.0-0.2) 0.1 x10^3/uL (0.0-0.2) Sodium Level 138 mmol/L (136-145) 137 mmol/L (136-145) Potassium Level 4.6 mmol/L (3.5-5.1) 4.1 mmol/L (3.5-5.1) Chloride Level 100 mmol/L (98-107) 101 mmol/L (98-107) Carbon Dioxide Level 29 mmol/L (21-32) 28 mmol/L (21-32) Anion Gap 9 (6-14) 8 (6-14) Blood Urea Nitrogen 25 mg/dL (8-26) 24 mg/dL (8-26) Creatinine 1.6 mg/dL (0.7-1.3) 1.5 mg/dL (0.7-1.3) Estimated GFR (Cockcroft-Gault) 42.3 45.6 BUN/Creatinine Ratio 16 (6-20) Glucose Level 243 mg/dL (70-99) 241 mg/dL (70-99) Calcium Level 10.0 mg/dL (8.5-10.1) 9.3 mg/dL (8.5-10.1) Total Bilirubin 0.6 mg/dL (0.2-1.0) Aspartate Amino Transf (AST/SGOT) 21 U/L (15-37) Alanine Aminotransferase (ALT/SGPT) 30 U/L (16-63) Alkaline Phosphatase 59 U/L (46-116) Total Protein 8.4 g/dL (6.4-8.2) Albumin 4.0 g/dL (3.4-5.0) Albumin/Globulin Ratio 0.9 (1.0-1.7) Glucose (Fingerstick) 234 mg/dL (70-99) Erythrocyte Sedimentation Rate 26 (0-15) Laboratory Tests Test 01/25/18 15:50 01/25/18 21:27 01/26/18 05:42 White Blood Count 11.2 x10^3/uL (4.0-11.0) 7.2 x10^3/uL (4.0-11.0) Red Blood Count 4.40 x10^6/uL (4.30-5.70) 4.06 x10^6/uL (4.30-5.70) Hemoglobin 14.5 g/dL (13.0-17.5) 13.2 g/dL (13.0-17.5) Hematocrit 41.4 % (39.0-53.0) 38.2 % (39.0-53.0) Mean Corpuscular Volume 94 fL (79-100) 94 fL (79-100) Mean Corpuscular Hemoglobin 33 pg (25-35) 33 pg (25-35) Mean Corpuscular Hemoglobin Concent 35 g/dL (31-37) 35 g/dL (31-37) Red Cell Distribution Width 13.7 % (11.5-14.5) 13.9 % (11.5-14.5) Platelet Count 178 x10^3/uL (140-400) 132 x10^3/uL (140-400) Neutrophils (%) (Auto) 80 % (31-73) 78 % (31-73) Lymphocytes (%) (Auto) 9 % (24-48) 12 % (24-48) Monocytes (%) (Auto) 7 % (0-9) 7 % (0-9) Eosinophils (%) (Auto) 2 % (0-3) 3 % (0-3) Basophils (%) (Auto) 1 % (0-3) 1 % (0-3) Neutrophils # (Auto) 9.0 x10^3uL (1.8-7.7) 5.6 x10^3uL (1.8-7.7) Lymphocytes # (Auto) 1.1 x10^3/uL (1.0-4.8) 0.9 x10^3/uL (1.0-4.8) Monocytes # (Auto) 0.8 x10^3/uL (0.0-1.1) 0.5 x10^3/uL (0.0-1.1) Eosinophils # (Auto) 0.2 x10^3/uL (0.0-0.7) 0.2 x10^3/uL (0.0-0.7) Basophils # (Auto) 0.1 x10^3/uL (0.0-0.2) 0.1 x10^3/uL (0.0-0.2) Sodium Level 138 mmol/L (136-145) 137 mmol/L (136-145) Potassium Level 4.6 mmol/L (3.5-5.1) 4.1 mmol/L (3.5-5.1) Chloride Level 100 mmol/L (98-107) 101 mmol/L (98-107) Carbon Dioxide Level 29 mmol/L (21-32) 28 mmol/L (21-32) Anion Gap 9 (6-14) 8 (6-14) Blood Urea Nitrogen 25 mg/dL (8-26) 24 mg/dL (8-26) Creatinine 1.6 mg/dL (0.7-1.3) 1.5 mg/dL (0.7-1.3) Estimated GFR (Cockcroft-Gault) 42.3 45.6 BUN/Creatinine Ratio 16 (6-20) Glucose Level 243 mg/dL (70-99) 241 mg/dL (70-99) Calcium Level 10.0 mg/dL (8.5-10.1) 9.3 mg/dL (8.5-10.1) Total Bilirubin 0.6 mg/dL (0.2-1.0) Aspartate Amino Transf (AST/SGOT) 21 U/L (15-37) Alanine Aminotransferase (ALT/SGPT) 30 U/L (16-63) Alkaline Phosphatase 59 U/L (46-116) Total Protein 8.4 g/dL (6.4-8.2) Albumin 4.0 g/dL (3.4-5.0) Albumin/Globulin Ratio 0.9 (1.0-1.7) Glucose (Fingerstick) 234 mg/dL (70-99) Erythrocyte Sedimentation Rate 26 (0-15) Medications Current Medications Vancomycin HCl (Vanco Per Pharmacy) 1 each 1X ONCE MC ; Start 01/25/18 at 15: 30; Stop 01/25/18 at 15:31; Status UNV Clindamycin Phosphate 50 ml @ 100 mls/hr 1X ONCE IV Last administered on at 16:17; Start 01/25/18 at 15:45; Stop 01/25/18 at 16:14; Status DC Vancomycin HCl 2 gm/Sodium Chloride 500 ml @ 250 mls/hr 1X ONCE IV Last administered on 01/25/18at 16:50; Start 01/25/18 at 15:45; Stop 01/25/18 at 17 :44; Status DC Vancomycin HCl (Vanco Per Pharmacy) 1 each PRN DAILY PRN MC SEE COMMENTS; Start 01/25/18 at 18:30; Stop 01/25/18 at 18:36; Status DC Heparin Sodium (Porcine) (Heparin Sodium) 5,000 unit [id number] SQ Last administered on 01/26/18at 05:51; Start 01/26/18 at 06:00 Allopurinol (Zyloprim) 200 mg DAILY PO Last administered on 01/26/18at 09:30; Start 01/26/18 at 09:00 Aspirin ([place] Aspirin) 325 mg DAILY PO Last administered on 01/26/18 09:26; Start 01/26/18 at 09:00 Atorvastatin Calcium (Lipitor) 10 mg QHS PO Last administered on 01/25/18 21: 55; Start 01/25/18 at 21:00 Gabapentin (Neurontin) 300 mg TID PO Last administered on 01/26/18 09:26; Start 01/25/18 at 21:00 Glipizide (Glucotrol Er) 10 mg DAILY08 PO Last administered on 01/26/18 09:25 ; Start 01/26/18 at 08:00 Metoprolol Succinate (Toprol Xl) 50 mg DAILY PO Last administered on 09:28; Start 01/26/18 at 09:00 Pantoprazole Sodium (Protonix) 40 mg DAILYAC PO Last administered on 09:29; Start 01/26/18 at 07:30 Sertraline HCl (Zoloft) 150 mg DAILY PO Last administered on 01/26/18 09:26; Start 01/26/18 at 09:00 Fenofibrate (Lofibra) 134 mg DAILY PO Last administered on 01/26/18 09:24; Start 01/26/18 at 09:00 Acetaminophen (Tylenol) 650 mg Q4HRS PRN PO MILD PAIN / TEMP Last administered on 01/26/18 09:29; Start 01/25/18 at 18:30 Acetaminophen/ Hydrocodone Bitart (Lortab 5/325) 1 tab Q4HRS PRN PO SEVERE PAIN ; Start 01/25/18 at 18:30 Linezolid (Zyvox) 600 mg BID PO Last administered on 01/26/18 09:25; Start 01/25/18 at 21:00 Meropenem 500 mg/ Sodium Chloride 50 ml @ 100 mls/hr Q8HRS IV Last administered on 01/26/18 05:49; Start 01/25/18 at 20:00 Magnesium Hydroxide (Milk Of Magnesia) 2,400 mg DAILY PRN PO CONSTIPATION; Start 01/25/18 at 18:30 Insulin Human Lispro (HumaLOG) 0-6 UNITS BG 300-39... TIDWMEALS SQ Last administered on 01/26/18at 09:35; Start 01/26/18 at 08:00 Active Scripts Active Bygreg (Exenatide) 10 Mcg/0.04 Ml Pen.injctr 10 Mcg SQ BID Glucophage Xr (Metformin Hcl) 500 Mg Tab.er.24h 500 Mg PO DAILYWBKFT 30 Days Glipizide Er (Glipizide) 2.5 Mg Tab.er.24 10 Mg PO DAILY08 30 Days Allopurinol 100 Mg Tablet 200 Mg PO DAILY 30 Days Protonix (Pantoprazole Sodium) 40 Mg Tablet 40 Mg PO DAILYAC Reported Sertraline Hcl 100 Mg Tablet 100 Mg PO DAILY Toprol Xl (Metoprolol Succinate) 50 Mg Tab.er.24h 50 Mg PO DAILY Tricor (Fenofibrate Nanocrystallized) 145 Mg Tablet 145 Mg PO DAILY Gabapentin 300 Mg Capsule 300 Mg PO TID Byetta (Exenatide) 10 Mcg/0.04 Ml Pen.injctr 10 Mcg SQ BID Cosopt Pf Eye Drops (Dorzolamide/Timolol/Pf) 1 Each Droperette 1 Each OP DAILY Aspirin Ec (Aspirin) 325 Mg Tablet.dr 325 Mg PO DAILY [place] 3 1,000 Mg Softgel ([place]-3 Fatty Acids/Fish Oil) 1 Each Capsule 1 Each PO DAILY Vitals/I & O Vital Sign - Last 24 Hours 01/25/18 01/25/18 01/25/18 01/25/18 15:20 16:20 17:20 18:15 Temp 98.0 98.0 Pulse 75 76 76 75 Resp 20 18 18 20 B/P (MAP) 146/69 (94) 153/75 (101) 142/76 (98) 126/56 (79) Pulse Ox 97 94 95 95 O2 Delivery Room Air Room Air Room Air Room Air 01/25/18 01/25/18 01/25/18 01/26/18 19:00 23:00 23:39 03:00 Temp 97.4 97.9 97.7 97.4 97.9 97.7 Pulse 75 76 70 Resp 14 14 14 B/P (MAP) 126/99 (108) 128/97 (107) 124/97 (106) Pulse Ox 93 93 96 O2 Delivery Room Air Room Air Room Air Room Air 01/26/18 01/26/18 07:00 09:28 Temp 100.2 100.2 Pulse 81 70 Resp 18 B/P (MAP) 123/60 (81) 124/97 Pulse Ox 94 O2 Delivery Room Air Intake and Output 01/25/18 01/25/18 01/26/18 15:00 23:00 07:00 Intake Total 50 ml Balance 50 ml ANASTASIYA OH MD Jan 26, 2018 10:53
[2018-01-26 11:00] VITALS: BP 127/89
--- NOTE | 2018-01-26 11:15 | PDOC2 ---
CONSULT Date of Consult Date of Consult DATE: 01/26/18 TIME: 11:08 Reason for Consult Reason for Consult: Diabetic foot ulcer Referring Physician Referring Physician: Dr. Arnett Identification/Chief Complaint Chief Complaint Left foot infection Problems: (1) Type 2 diabetes mellitus with foot ulcer (2) Non-pressure chronic ulcer of other part of left foot with fat layer exposed (3) Cellulitis of left lower extremity (4) Diabetic foot ulcer Source Source: Chart review, Patient History of Present Illness Reason for Visit: This is a pleasant 77-year-old patient with reported history of several days of increasing left foot and lower extremity redness. Patient was not aware of significant ulceration prior to that time. He is aware of decreased sensation. Patient was evaluated in the emergency department with subsequent admission. He presents now on IV antibiotic therapy and reports improved redness to the forefoot. Past Medical History Cardiovascular: CAD, HTN, SD, Hyperlipidemia Pulmonary: Pulmonary embolus CENTRAL NERVOUS SYSTEM: Other GI: GERD Heme/Onc: No pertinent hx Hepatobiliary: No pertinent hx Psych: Anxiety, Depression Musculoskeletal: Osteoarthritis, Other Rheumatologic: Gout Infectious disease: No pertinent hx Renal/: No pertinent hx Endocrine: Diabetes Past Surgical History Past Surgical History: Cataract Removal, Other Social History ALCOHOL: none Drugs: None Lives: with Family Domestic Violence: Neg Current Problem List Problem List Problems Medical Problems: (1) Diabetic foot ulcer Status: Acute Current Medications Current Medications Current Medications Vancomycin HCl (Vanco Per Pharmacy) 1 each 1X ONCE MC ; Start 01/25/18 at 15: 30; Stop 01/25/18 at 15:31; Status UNV Clindamycin Phosphate 50 ml @ 100 mls/hr 1X ONCE IV Last administered on at 16:17; Start 01/25/18 at 15:45; Stop 01/25/18 at 16:14; Status DC Vancomycin HCl 2 gm/Sodium Chloride 500 ml @ 250 mls/hr 1X ONCE IV Last administered on 01/25/18at 16:50; Start 01/25/18 at 15:45; Stop 01/25/18 at 17 :44; Status DC Vancomycin HCl (Vanco Per Pharmacy) 1 each PRN DAILY PRN MC SEE COMMENTS; Start 01/25/18 at 18:30; Stop 01/25/18 at 18:36; Status DC Heparin Sodium (Porcine) (Heparin Sodium) 5,000 unit [id number] SQ Last administered on 01/26/18 05:51; Start 01/26/18 at 06:00 Allopurinol (Zyloprim) 200 mg DAILY PO Last administered on 01/26/18 09:30; Start 01/26/18 at 09:00 Aspirin ([place] Aspirin) 325 mg DAILY PO Last administered on 01/26/18 09:26; Start 01/26/18 at 09:00 Atorvastatin Calcium (Lipitor) 10 mg QHS PO Last administered on 01/25/18 21: 55; Start 01/25/18 at 21:00 Gabapentin (Neurontin) 300 mg TID PO Last administered on 01/26/18 09:26; Start 01/25/18 at 21:00 Glipizide (Glucotrol Er) 10 mg DAILY08 PO Last administered on 01/26/18 09:25 ; Start 01/26/18 at 08:00 Metoprolol Succinate (Toprol Xl) 50 mg DAILY PO Last administered on 09:28; Start 01/26/18 at 09:00 Pantoprazole Sodium (Protonix) 40 mg DAILYAC PO Last administered on 09:29; Start 01/26/18 at 07:30 Sertraline HCl (Zoloft) 150 mg DAILY PO Last administered on 01/26/18 09:26; Start 01/26/18 at 09:00 Fenofibrate (Lofibra) 134 mg DAILY PO Last administered on 01/26/18 09:24; Start 01/26/18 at 09:00 Acetaminophen (Tylenol) 650 mg Q4HRS PRN PO MILD PAIN / TEMP Last administered on 01/26/18 09:29; Start 01/25/18 at 18:30 Acetaminophen/ Hydrocodone Bitart (Lortab 5/325) 1 tab Q4HRS PRN PO SEVERE PAIN ; Start 01/25/18 at 18:30 Linezolid (Zyvox) 600 mg BID PO Last administered on 01/26/18 09:25; Start 01/25/18 at 21:00 Meropenem 500 mg/ Sodium Chloride 50 ml @ 100 mls/hr Q8HRS IV Last administered on 01/26/18 05:49; Start 01/25/18 at 20:00 Magnesium Hydroxide (Milk Of Magnesia) 2,400 mg DAILY PRN PO CONSTIPATION; Start 01/25/18 at 18:30 Insulin Human Lispro (HumaLOG) 0-6 UNITS BG 300-39... TIDWMEALS SQ Last administered on 01/26/18at 09:35; Start 01/26/18 at 08:00; Stop 01/26/18 at 10 :56; Status DC Insulin Human Lispro (HumaLOG) 0-6 UNITS BG 300-39... TIDWMEALS SQ ; Start at 12:00; Status UNV Insulin Human Lispro (HumaLOG) 4 units TIDAC SQ ; Start 01/26/18 at 11:30; Status UNV Insulin Glargine (Lantus) 10 units QHS SQ ; Start 01/26/18 at 21:00; Status UNV Active Scripts Active Byetta (Exenatide) 10 Mcg/0.04 Ml Pen.injctr 10 Mcg SQ BID Glucophage Xr (Metformin Hcl) 500 Mg Tab.er.24h 500 Mg PO DAILYWBKFT 30 Days Glipizide Er (Glipizide) 2.5 Mg Tab.er.24 10 Mg PO DAILY08 30 Days Allopurinol 100 Mg Tablet 200 Mg PO DAILY 30 Days Protonix (Pantoprazole Sodium) 40 Mg Tablet 40 Mg PO DAILYAC Reported Sertraline Hcl 100 Mg Tablet 100 Mg PO DAILY Toprol Xl (Metoprolol Succinate) 50 Mg Tab.er.24h 50 Mg PO DAILY Tricor (Fenofibrate Nanocrystallized) 145 Mg Tablet 145 Mg PO DAILY Gabapentin 300 Mg Capsule 300 Mg PO TID Byetta (Exenatide) 10 Mcg/0.04 Ml Pen.injctr 10 Mcg SQ BID Cosopt Pf Eye Drops (Dorzolamide/Timolol/Pf) 1 Each Droperette 1 Each OP DAILY Aspirin Ec (Aspirin) 325 Mg Tablet.dr 325 Mg PO DAILY [place] 3 1,000 Mg Softgel ([place]-3 Fatty Acids/Fish Oil) 1 Each Capsule 1 Each PO DAILY Allergies Allergies: Coded Allergies: Penicillins (Verified Allergy, Intermediate, 01/25/18) metronidazole (Verified Allergy, Intermediate, 01/25/18) niacin (Verified Allergy, Intermediate, 01/25/18) ROS Review of System Review of systems negative except as reported below General: YES: Fatigue HEENT: YES: Other (he is aware of decreased hearing) Respiratory: YES: SOB with excertion Musculoskeletal: Yes Gait Disturbance (he reports a wide stance gait), Yes Joint Stiffness (large joints of the lower extremity) Neurological: Yes Numbness/Tingling (lower extremities compatible with diabetic neuropathy) Physical Exam General: Alert, Oriented X3, Cooperative, No acute distress HEENT: Atraumatic, PERRLA, Mucous membr. moist/pink Lungs: Clear to auscultation, Normal air movement Heart: Regular rate Abdomen: Soft, No tenderness Extremities: No clubbing, No cyanosis, No edema, Other (Quant of flow is 1.25) Skin: Other (scattered area of superficial ulceration identified to the plantar surface first MTP joint of the foot demonstrating significant plantar equinus. Localized erythema demonstrated at this time. Evidence of fat necrosis only noted with no evidence of muscle necrosis or bone palpated in the wound at this time. Total surface area roughly 4 cm x 4 cm.) Neuro: Normal speech, Other (decrease filament testing 5 over 5 plantar surface locations.) Psych/Mental Status: Mental status NL, Mood NL MUSCULOSKELETAL: Not examined Vitals VITALS Vital Signs Date Time Temp Pulse Resp B/P (MAP) Pulse Ox O2 Delivery O2 Flow Rate FiO2 01/26/18 09:28 70 124/97 01/26/18 07:00 100.2 18 94 Room Air 100.2 Labs Labs Laboratory Tests Test 01/25/18 15:50 01/25/18 21:27 01/26/18 05:42 White Blood Count 11.2 x10^3/uL (4.0-11.0) 7.2 x10^3/uL (4.0-11.0) Red Blood Count 4.40 x10^6/uL (4.30-5.70) 4.06 x10^6/uL (4.30-5.70) Hemoglobin 14.5 g/dL (13.0-17.5) 13.2 g/dL (13.0-17.5) Hematocrit 41.4 % (39.0-53.0) 38.2 % (39.0-53.0) Mean Corpuscular Volume 94 fL (79-100) 94 fL (79-100) Mean Corpuscular Hemoglobin 33 pg (25-35) 33 pg (25-35) Mean Corpuscular Hemoglobin Concent 35 g/dL (31-37) 35 g/dL (31-37) Red Cell Distribution Width 13.7 % (11.5-14.5) 13.9 % (11.5-14.5) Platelet Count 178 x10^3/uL (140-400) 132 x10^3/uL (140-400) Neutrophils (%) (Auto) 80 % (31-73) 78 % (31-73) Lymphocytes (%) (Auto) 9 % (24-48) 12 % (24-48) Monocytes (%) (Auto) 7 % (0-9) 7 % (0-9) Eosinophils (%) (Auto) 2 % (0-3) 3 % (0-3) Basophils (%) (Auto) 1 % (0-3) 1 % (0-3) Neutrophils # (Auto) 9.0 x10^3uL (1.8-7.7) 5.6 x10^3uL (1.8-7.7) Lymphocytes # (Auto) 1.1 x10^3/uL (1.0-4.8) 0.9 x10^3/uL (1.0-4.8) Monocytes # (Auto) 0.8 x10^3/uL (0.0-1.1) 0.5 x10^3/uL (0.0-1.1) Eosinophils # (Auto) 0.2 x10^3/uL (0.0-0.7) 0.2 x10^3/uL (0.0-0.7) Basophils # (Auto) 0.1 x10^3/uL (0.0-0.2) 0.1 x10^3/uL (0.0-0.2) Sodium Level 138 mmol/L (136-145) 137 mmol/L (136-145) Potassium Level 4.6 mmol/L (3.5-5.1) 4.1 mmol/L (3.5-5.1) Chloride Level 100 mmol/L (98-107) 101 mmol/L (98-107) Carbon Dioxide Level 29 mmol/L (21-32) 28 mmol/L (21-32) Anion Gap 9 (6-14) 8 (6-14) Blood Urea Nitrogen 25 mg/dL (8-26) 24 mg/dL (8-26) Creatinine 1.6 mg/dL (0.7-1.3) 1.5 mg/dL (0.7-1.3) Estimated GFR (Cockcroft-Gault) 42.3 45.6 BUN/Creatinine Ratio 16 (6-20) Glucose Level 243 mg/dL (70-99) 241 mg/dL (70-99) Calcium Level 10.0 mg/dL (8.5-10.1) 9.3 mg/dL (8.5-10.1) Total Bilirubin 0.6 mg/dL (0.2-1.0) Aspartate Amino Transf (AST/SGOT) 21 U/L (15-37) Alanine Aminotransferase (ALT/SGPT) 30 U/L (16-63) Alkaline Phosphatase 59 U/L (46-116) Total Protein 8.4 g/dL (6.4-8.2) Albumin 4.0 g/dL (3.4-5.0) Albumin/Globulin Ratio 0.9 (1.0-1.7) Glucose (Fingerstick) 234 mg/dL (70-99) Erythrocyte Sedimentation Rate 26 (0-15) Laboratory Tests Test 01/25/18 15:50 01/25/18 21:27 01/26/18 05:42 White Blood Count 11.2 x10^3/uL (4.0-11.0) 7.2 x10^3/uL (4.0-11.0) Red Blood Count 4.40 x10^6/uL (4.30-5.70) 4.06 x10^6/uL (4.30-5.70) Hemoglobin 14.5 g/dL (13.0-17.5) 13.2 g/dL (13.0-17.5) Hematocrit 41.4 % (39.0-53.0) 38.2 % (39.0-53.0) Mean Corpuscular Volume 94 fL (79-100) 94 fL (79-100) Mean Corpuscular Hemoglobin 33 pg (25-35) 33 pg (25-35) Mean Corpuscular Hemoglobin Concent 35 g/dL (31-37) 35 g/dL (31-37) Red Cell Distribution Width 13.7 % (11.5-14.5) 13.9 % (11.5-14.5) Platelet Count 178 x10^3/uL (140-400) 132 x10^3/uL (140-400) Neutrophils (%) (Auto) 80 % (31-73) 78 % (31-73) Lymphocytes (%) (Auto) 9 % (24-48) 12 % (24-48) Monocytes (%) (Auto) 7 % (0-9) 7 % (0-9) Eosinophils (%) (Auto) 2 % (0-3) 3 % (0-3) Basophils (%) (Auto) 1 % (0-3) 1 % (0-3) Neutrophils # (Auto) 9.0 x10^3uL (1.8-7.7) 5.6 x10^3uL (1.8-7.7) Lymphocytes # (Auto) 1.1 x10^3/uL (1.0-4.8) 0.9 x10^3/uL (1.0-4.8) Monocytes # (Auto) 0.8 x10^3/uL (0.0-1.1) 0.5 x10^3/uL (0.0-1.1) Eosinophils # (Auto) 0.2 x10^3/uL (0.0-0.7) 0.2 x10^3/uL (0.0-0.7) Basophils # (Auto) 0.1 x10^3/uL (0.0-0.2) 0.1 x10^3/uL (0.0-0.2) Sodium Level 138 mmol/L (136-145) 137 mmol/L (136-145) Potassium Level 4.6 mmol/L (3.5-5.1) 4.1 mmol/L (3.5-5.1) Chloride Level 100 mmol/L (98-107) 101 mmol/L (98-107) Carbon Dioxide Level 29 mmol/L (21-32) 28 mmol/L (21-32) Anion Gap 9 (6-14) 8 (6-14) Blood Urea Nitrogen 25 mg/dL (8-26) 24 mg/dL (8-26) Creatinine 1.6 mg/dL (0.7-1.3) 1.5 mg/dL (0.7-1.3) Estimated GFR (Cockcroft-Gault) 42.3 45.6 BUN/Creatinine Ratio 16 (6-20) Glucose Level 243 mg/dL (70-99) 241 mg/dL (70-99) Calcium Level 10.0 mg/dL (8.5-10.1) 9.3 mg/dL (8.5-10.1) Total Bilirubin 0.6 mg/dL (0.2-1.0) Aspartate Amino Transf (AST/SGOT) 21 U/L (15-37) Alanine Aminotransferase (ALT/SGPT) 30 U/L (16-63) Alkaline Phosphatase 59 U/L (46-116) Total Protein 8.4 g/dL (6.4-8.2) Albumin 4.0 g/dL (3.4-5.0) Albumin/Globulin Ratio 0.9 (1.0-1.7) Glucose (Fingerstick) 234 mg/dL (70-99) Erythrocyte Sedimentation Rate 26 (0-15) Images Images X-ray does not show bony distraction, MRI is pending Assessment/Plan Assessment/Plan Diabetic [place] 1 ulceration of the left forefoot with evidence of fat layer exposure and accompanying cellulitis Appropriate dressing orders provided. Patient should be nonweightbearing on the left forefoot at this time. Await MRI finding VINI TALLEY DO Jan 26, 2018 11:15
[2018-01-26] MEDS: INSULIN LISPRO 300 UNITS/3 ML INSULN.PEN. SQ SCH ×4 (13:09→16:59)
--- NOTE | 2018-01-26 16:45 | RAD ---
MR of the left foot HISTORY: Redness and swelling at the ball of the left foot. TECHNIQUE: Routine multiplanar sequences are obtained. FINDINGS: No bone lesion, acute fracture or marrow edema. No evidence of bone destruction. No evidence of acute osteomyelitis. No evidence of acute sesamoiditis. No significant joint effusion. There is dorsiflexion of the MTP joints. Diffuse muscle atrophy. Mild diffuse soft tissue edema. No organized fluid collection or drainable abscess. No evidence of significant tendon sheath fluid or acute tendon disruption. Lisfranc ligament complex is intact as is tarsometatarsal joint alignment. IMPRESSION: Mild soft tissue edema about the foot. No acute bone abnormality or soft tissue fluid collection. Electronically signed by: Paul Dhaliwal MD (01/26/2018 4:42 PM) [id number]
[2018-01-26] MEDS: QUEtiapine 25 MG TABLET. PO PRN (18:58)
[2018-01-26 19:00] VITALS: BP 169/67
[2018-01-26] MEDS ORDERED: INSULIN GLARGINE 300 UNITS/3 ML INSULN.PEN. SQ SCH (21:00)
[2018-01-26] MEDS: LACTOBACILLUS RHAMNOSUS GG 1 CAPSULE. PO SCH (21:09)
[2018-01-26] MEDS: ATORVASTATIN CALCIUM 10 MG TABLET. PO SCH (21:09)
[2018-01-26 23:00] VITALS: BP 161/74
--- NOTE | 2018-01-26 23:42 | CONS ---
DATE OF CONSULTATION: 01/26/2018 REQUESTING PHYSICIAN: Dr. Arnett. REASON FOR CONSULTATION: Left foot wound and infection. HISTORY OF PRESENT ILLNESS: This is a 77-year-old gentleman with very poor hearing. The patient has diabetes with diabetic neuropathy and nephropathy. The patient noted two days history of pain and redness of the left foot and a foot wound. The patient had seen Dr. Pop of Podiatry and he was asked to come in. The patient is running a fever, has leukocytosis, open wound on the plantar surface of the foot and redness of the left foot and streaking into the leg. The patient denies any nausea, vomiting or diarrhea. Denies any chest pain, shortness of breath, abdominal pain, urinary symptoms or bowel symptoms. PAST MEDICAL HISTORY: Positive for diabetes mellitus, diabetic nephropathy, diabetic neuropathy, hyperlipidemia, hypertension, coronary artery disease, goiter, gastroesophageal reflux disease, depression and also has significant hearing deficit. PAST SURGICAL HISTORY: He has had tympanic membrane repair done, laminectomy done and a tibial fracture repair done. SOCIAL HISTORY: Negative for alcohol use or drug use or smoking. ALLERGIES: LISTED ALLERGIC TO PENICILLIN, HE DOES NOT REMEMBER WHAT HAPPENED. METRONIDAZOLE, HE DOES NOT REMEMBER WHAT HAPPENED. CURRENT MEDICATIONS: Reviewed. The patient is on Zyvox and meropenem. REVIEW OF SYSTEMS: As per HPI. All other systems reviewed are negative, although difficult because of very poor hearing. PHYSICAL EXAMINATION: GENERAL: Alert and awake gentleman, not in any distress. VITAL SIGNS: Stable. His current temperature is 100.2. The rest of the vitals are stable. HEENT: NAD. NECK: Supple. No JVP, no lymphadenopathy. LUNGS: Clear. HEART: S1, S2 regular. ABDOMEN: Benign. EXTREMITIES: Right lower extremity is unremarkable. Left lower extremity has a plantar wound with some necrotic tissue and the foot is red as well as red streaking into the leg. Dorsalis pedis is nice, palpable. NEUROLOGIC: The patient is neurologically intact, other than poor hearing. LABORATORY DATA: White count was 11.2 yesterday; today, it is down to 7.2. Sed rate is 26. BUN and creatinine are 24 and 1.5. Cultures are pending. His foot x-ray is unremarkable. Chest x-ray is unremarkable. IMPRESSION: 1. Diabetic foot infection with ulcer on the plantar surface. 2. Left foot and leg cellulitis. 3. Fever. 4. Leukocytosis. 5. Diabetes. 6. Coronary artery disease. 7. Hypertension. 8. Renal insufficiency. 9. Hyperlipidemia. 10. Gastroesophageal reflux disease. RECOMMENDATIONS: Agree with Zyvox and meropenem for the time being. MRI of the left foot, supportive care. We will check the cultures and adjust and we will continue to follow. Thank you very much, Dr. Arnett, for giving me the opportunity to participate in this patient's care. ABRAM BENITES MD DR: SHAI/blanka JOB#: [id number] / [id number]
[2018-01-27 03:00] VITALS: BP 145/70
[2018-01-27 04:35] LABS: BILIRUBIN,URINE NEGATIVE (NEG); CLARITY,URINE CLEAR; COLOR,URINE YELLOW; NITRITE,URINE NEGATIVE (NEG); PH,URINE 5.5; PROTEIN,URINE NEGATIVE (NEG-TRACE); UROBILINOGEN,URINE 0.2 mg/dL (0.2 mg/dL)
[2018-01-27 04:39] LABS: BASO # 0.1 x10^3/uL (0.0-0.2); BASO % 1 % (0-3); EOS # 0.1 x10^3/uL (0.0-0.7); EOS % 3 % (0-3); HEMATOCRIT 38.4 % (39.0-53.0); HEMOGLOBIN 13.3 g/dL (13.0-17.5); LYMPH % 20 % (24-48); MEAN CORPUSCULAR HEMOGLOBIN 33 pg (25-35); MEAN CORPUSCULAR HGB CONC 35 g/dL (31-37); MEAN CORPUSCULAR VOLUME 94 fL (79-100); MONO # 0.6 x10^3/uL (0.0-1.1); MONO % 11 % (0-9); NEUT # 3.4 x10^3uL (1.8-7.7); NEUT % 65 % (31-73); PLATELET COUNT 127 x10^3/uL (140-400); RED BLOOD COUNT 4.08 x10^6/uL (4.30-5.70); RED CELL DISTRIBUTION WIDTH 13.5 % (11.5-14.5); WHITE BLOOD COUNT 5.1 x10^3/uL (4.0-11.0)
[2018-01-27 04:41] LABS: BACTERIA,URINE 0 /HPF (0-FEW); RBC,URINE 0 /HPF (0-2); SQUAMOUS EPITHELIAL CELL,UR OCC /LPF; WBC,URINE 0 /HPF (0-4)
[2018-01-27 04:58] LABS: CALCIUM 8.9 mg/dL (8.5-10.1); CREATININE 1.5 mg/dL (0.7-1.3); GFR 45.6; POTASSIUM 3.8 mmol/L (3.5-5.1)
[2018-01-27] MEDS: PANTOPRAZOLE 40 MG TABLET.DR. PO SCH (05:30)
[2018-01-27] MEDS: MEROPENEM 500 MG in IV NORMAL SALINE 50ML 50 ML IV SCH ×3 (05:31→21:43)
[2018-01-27] MEDS: HEPARIN for SUB-Q USE 5,000 UNIT/ML VIAL. SQ SCH ×2 (05:35→18:00)
[2018-01-27 07:00] VITALS: BP 142/72
[2018-01-27] MEDS: glipiZIDE ER 2.5 MG TAB.ER.24 PO SCH (08:48)
[2018-01-27] MEDS: GABAPENTIN 300 MG CAPSULE. PO SCH ×3 (08:49→21:42)
[2018-01-27] MEDS: ALLOPURINOL 100 MG TABLET. PO SCH (08:49)
[2018-01-27] MEDS: SERTRALINE 50 MG TABLET. PO SCH (08:50)
[2018-01-27] MEDS: METOPROLOL SUCC 24HR ER 50 MG TAB.ER.24H. PO SCH (08:50)
[2018-01-27] MEDS: ASPIRIN 325 MG TABLET PO SCH (08:50)
[2018-01-27] MEDS: LACTOBACILLUS RHAMNOSUS GG 1 CAPSULE. PO SCH ×2 (08:50→21:42)
[2018-01-27] MEDS: LINEZOLID 600 MG TABLET PO SCH ×2 (08:51→21:43)
[2018-01-27] MEDS: FENOFIBRATE,MICRONIZED 134 MG CAPSULE PO SCH (08:51)
[2018-01-27] MEDS: INSULIN LISPRO 300 UNITS/3 ML INSULN.PEN. SQ SCH ×6 (08:55→17:00)
--- NOTE | 2018-01-27 09:47 | PDOC ---
PROGRESS NOTES Subjective Subjective fever last night . temp 100.9. MRI of left foot neg for osteo. lab reviewed. bowels are okay. blood sugars are high and will increase insulin. blood cultures neg so far. wound culture pending Objective Objective Vital Signs Date Time Temp Pulse Resp B/P (MAP) Pulse Ox O2 Delivery O2 Flow Rate FiO2 01/27/18 08:50 75 145/70 01/27/18 07:00 98.4 16 96 Room Air 98.4 Intake and Output 01/27/18 07:00 Intake Total 700 ml Output Total 950 ml Balance -250 ml Intake Oral 400 ml IV Total 150 ml Other 150 ml Output Urine Total 950 ml # Voids 5 Physical Exam Abdomen: Soft Heart: Regular rate, Normal S1, Normal S2 Extremities: No edema General: Alert HEENT: Atraumatic Lungs: Clear to auscultation MUSCULOSKELETAL: No swelling Neuro: Normal speech Psych/Mental Status: Mood NL Skin: Other (redness plantar foot around wound,. redness dorsal left foot better) Assessment Assessment Problems1. Infected Left foot ulcer with cellulitis. 2. Diabetes mellitus type 2 with nephropathy. 3. Chronic kidney disease stage 3 diabetes mellitus with peripheral neuropathy with hyperglycemia coronary artery disease fever Medical Problems: (1) Diabetic foot ulcer Status: Acute Plan Plan of Care continue zyvoz and iv meropenem off load wound increase insulin will need eventual transfer to SNF to off load foot wound Comment Review of Relevant I have reviewed the following items indra (where applicable) has been applied. Labs Laboratory Tests Test 01/25/18 15:50 01/25/18 21:27 01/26/18 05:42 01/26/18 08:12 White Blood Count 11.2 x10^3/uL (4.0-11.0) 7.2 x10^3/uL (4.0-11.0) Red Blood Count 4.40 x10^6/uL (4.30-5.70) 4.06 x10^6/uL (4.30-5.70) Hemoglobin 14.5 g/dL (13.0-17.5) 13.2 g/dL (13.0-17.5) Hematocrit 41.4 % (39.0-53.0) 38.2 % (39.0-53.0) Mean Corpuscular Volume 94 fL (79-100) 94 fL (79-100) Mean Corpuscular Hemoglobin 33 pg (25-35) 33 pg (25-35) Mean Corpuscular Hemoglobin Concent 35 g/dL (31-37) 35 g/dL (31-37) Red Cell Distribution Width 13.7 % (11.5-14.5) 13.9 % (11.5-14.5) Platelet Count 178 x10^3/uL (140-400) 132 x10^3/uL (140-400) Neutrophils (%) (Auto) 80 % (31-73) 78 % (31-73) Lymphocytes (%) (Auto) 9 % (24-48) 12 % (24-48) Monocytes (%) (Auto) 7 % (0-9) 7 % (0-9) Eosinophils (%) (Auto) 2 % (0-3) 3 % (0-3) Basophils (%) (Auto) 1 % (0-3) 1 % (0-3) Neutrophils # (Auto) 9.0 x10^3uL (1.8-7.7) 5.6 x10^3uL (1.8-7.7) Lymphocytes # (Auto) 1.1 x10^3/uL (1.0-4.8) 0.9 x10^3/uL (1.0-4.8) Monocytes # (Auto) 0.8 x10^3/uL (0.0-1.1) 0.5 x10^3/uL (0.0-1.1) Eosinophils # (Auto) 0.2 x10^3/uL (0.0-0.7) 0.2 x10^3/uL (0.0-0.7) Basophils # (Auto) 0.1 x10^3/uL (0.0-0.2) 0.1 x10^3/uL (0.0-0.2) Sodium Level 138 mmol/L (136-145) 137 mmol/L (136-145) Potassium Level 4.6 mmol/L (3.5-5.1) 4.1 mmol/L (3.5-5.1) Chloride Level 100 mmol/L (98-107) 101 mmol/L (98-107) Carbon Dioxide Level 29 mmol/L (21-32) 28 mmol/L (21-32) Anion Gap 9 (6-14) 8 (6-14) Blood Urea Nitrogen 25 mg/dL (8-26) 24 mg/dL (8-26) Creatinine 1.6 mg/dL (0.7-1.3) 1.5 mg/dL (0.7-1.3) Estimated GFR (Cockcroft-Gault) 42.3 45.6 BUN/Creatinine Ratio 16 (6-20) Glucose Level 243 mg/dL (70-99) 241 mg/dL (70-99) Calcium Level 10.0 mg/dL (8.5-10.1) 9.3 mg/dL (8.5-10.1) Total Bilirubin 0.6 mg/dL (0.2-1.0) Aspartate Amino Transf (AST/SGOT) 21 U/L (15-37) Alanine Aminotransferase (ALT/SGPT) 30 U/L (16-63) Alkaline Phosphatase 59 U/L (46-116) Total Protein 8.4 g/dL (6.4-8.2) Albumin 4.0 g/dL (3.4-5.0) Albumin/Globulin Ratio 0.9 (1.0-1.7) Glucose (Fingerstick) 234 mg/dL (70-99) 250 mg/dL (70-99) Erythrocyte Sedimentation Rate 26 (0-15) Test 01/26/18 12:41 01/26/18 13:02 01/26/18 16:52 01/26/18 20:32 Glucose (Fingerstick) 277 mg/dL (70-99) 296 mg/dL (70-99) 212 mg/dL (70-99) 267 mg/dL (70-99) Test 01/27/18 03:45 01/27/18 04:00 White Blood Count 5.1 x10^3/uL (4.0-11.0) Red Blood Count 4.08 x10^6/uL (4.30-5.70) Hemoglobin 13.3 g/dL (13.0-17.5) Hematocrit 38.4 % (39.0-53.0) Mean Corpuscular Volume 94 fL (79-100) Mean Corpuscular Hemoglobin 33 pg (25-35) Mean Corpuscular Hemoglobin Concent 35 g/dL (31-37) Red Cell Distribution Width 13.5 % (11.5-14.5) Platelet Count 127 x10^3/uL (140-400) Neutrophils (%) (Auto) 65 % (31-73) Lymphocytes (%) (Auto) 20 % (24-48) Monocytes (%) (Auto) 11 % (0-9) Eosinophils (%) (Auto) 3 % (0-3) Basophils (%) (Auto) 1 % (0-3) Neutrophils # (Auto) 3.4 x10^3uL (1.8-7.7) Lymphocytes # (Auto) 1.0 x10^3/uL (1.0-4.8) Monocytes # (Auto) 0.6 x10^3/uL (0.0-1.1) Eosinophils # (Auto) 0.1 x10^3/uL (0.0-0.7) Basophils # (Auto) 0.1 x10^3/uL (0.0-0.2) Sodium Level 141 mmol/L (136-145) Potassium Level 3.8 mmol/L (3.5-5.1) Chloride Level 104 mmol/L (98-107) Carbon Dioxide Level 27 mmol/L (21-32) Anion Gap 10 (6-14) Blood Urea Nitrogen 21 mg/dL (8-26) Creatinine 1.5 mg/dL (0.7-1.3) Estimated GFR (Cockcroft-Gault) 45.6 Glucose Level 198 mg/dL (70-99) Calcium Level 8.9 mg/dL (8.5-10.1) Urine Collection Type Unknown Urine Color Yellow Urine Clarity Clear Urine pH 5.5 Urine Specific [place] 1.025 Urine Protein Negative mg/dL (NEG-TRACE) Urine Glucose (UA) >=1000 mg/dL (NEG) Urine Ketones (Stick) Negative mg/dL (NEG) Urine Blood Negative (NEG) Urine Nitrite Negative (NEG) Urine Bilirubin Negative (NEG) Urine Urobilinogen Dipstick 0.2 mg/dL (0.2 mg/dL) Urine Leukocyte Esterase Negative (NEG) Urine RBC 0 /HPF (0-2) Urine WBC 0 /HPF (0-4) Urine Squamous Epithelial Cells Occ /LPF Urine Bacteria 0 /HPF (0-FEW) Urine Mucus Slight /LPF Laboratory Tests Test 01/26/18 12:41 01/26/18 13:02 01/26/18 16:52 01/26/18 20:32 Glucose (Fingerstick) 277 mg/dL (70-99) 296 mg/dL (70-99) 212 mg/dL (70-99) 267 mg/dL (70-99) Test 01/27/18 03:45 01/27/18 04:00 White Blood Count 5.1 x10^3/uL (4.0-11.0) Red Blood Count 4.08 x10^6/uL (4.30-5.70) Hemoglobin 13.3 g/dL (13.0-17.5) Hematocrit 38.4 % (39.0-53.0) Mean Corpuscular Volume 94 fL (79-100) Mean Corpuscular Hemoglobin 33 pg (25-35) Mean Corpuscular Hemoglobin Concent 35 g/dL (31-37) Red Cell Distribution Width 13.5 % (11.5-14.5) Platelet Count 127 x10^3/uL (140-400) Neutrophils (%) (Auto) 65 % (31-73) Lymphocytes (%) (Auto) 20 % (24-48) Monocytes (%) (Auto) 11 % (0-9) Eosinophils (%) (Auto) 3 % (0-3) Basophils (%) (Auto) 1 % (0-3) Neutrophils # (Auto) 3.4 x10^3uL (1.8-7.7) Lymphocytes # (Auto) 1.0 x10^3/uL (1.0-4.8) Monocytes # (Auto) 0.6 x10^3/uL (0.0-1.1) Eosinophils # (Auto) 0.1 x10^3/uL (0.0-0.7) Basophils # (Auto) 0.1 x10^3/uL (0.0-0.2) Sodium Level 141 mmol/L (136-145) Potassium Level 3.8 mmol/L (3.5-5.1) Chloride Level 104 mmol/L (98-107) Carbon Dioxide Level 27 mmol/L (21-32) Anion Gap 10 (6-14) Blood Urea Nitrogen 21 mg/dL (8-26) Creatinine 1.5 mg/dL (0.7-1.3) Estimated GFR (Cockcroft-Gault) 45.6 Glucose Level 198 mg/dL (70-99) Calcium Level 8.9 mg/dL (8.5-10.1) Urine Collection Type Unknown Urine Color Yellow Urine Clarity Clear Urine pH 5.5 Urine Specific [place] 1.025 Urine Protein Negative mg/dL (NEG-TRACE) Urine Glucose (UA) >=1000 mg/dL (NEG) Urine Ketones (Stick) Negative mg/dL (NEG) Urine Blood Negative (NEG) Urine Nitrite Negative (NEG) Urine Bilirubin Negative (NEG) Urine Urobilinogen Dipstick 0.2 mg/dL (0.2 mg/dL) Urine Leukocyte Esterase Negative (NEG) Urine RBC 0 /HPF (0-2) Urine WBC 0 /HPF (0-4) Urine Squamous Epithelial Cells Occ /LPF Urine Bacteria 0 /HPF (0-FEW) Urine Mucus Slight /LPF Microbiology 01/25/18 Blood Culture - Preliminary, Resulted NO GROWTH AFTER 1 DAY 01/25/18 Anaerobic/Aerobic Culture, Resulted Pending 01/25/18 Anaerobic Culture Result 1 (NICOLAS), Resulted Pending 01/25/18 Aerobic Culture, Resulted Pending 01/25/18 Aerobic Culture Result 1 (NICOLAS), Resulted Pending 01/25/18 Gram Stain - Final, Resulted 01/25/18 Gram Stain Result 1 (NICOLAS) - Final, Resulted 01/25/18 Gram Stain Result 2 (NICOLAS) - Final, Resulted 01/25/18 Gram Stain Result 3 (NICOLAS) - Final, Resulted Medications Current Medications Vancomycin HCl (Vanco Per Pharmacy) 1 each 1X ONCE MC ; Start 01/25/18 at 15: 30; Stop 01/25/18 at 15:31; Status UNV Clindamycin Phosphate 50 ml @ 100 mls/hr 1X ONCE IV Last administered on at 16:17; Start 01/25/18 at 15:45; Stop 01/25/18 at 16:14; Status DC Vancomycin HCl 2 gm/Sodium Chloride 500 ml @ 250 mls/hr 1X ONCE IV Last administered on 01/25/18at 16:50; Start 01/25/18 at 15:45; Stop 01/25/18 at 17 :44; Status DC Vancomycin HCl (Vanco Per Pharmacy) 1 each PRN DAILY PRN MC SEE COMMENTS; Start 01/25/18 at 18:30; Stop 01/25/18 at 18:36; Status DC Heparin Sodium (Porcine) (Heparin Sodium) 5,000 unit [id number] SQ Last administered on 01/27/18at 05:35; Start 01/26/18 at 06:00 Allopurinol (Zyloprim) 200 mg DAILY PO Last administered on 01/27/18at 08:49; Start 01/26/18 at 09:00 Aspirin ([place] Aspirin) 325 mg DAILY PO Last administered on 01/27/18at 08:50; Start 01/26/18 at 09:00 Atorvastatin Calcium (Lipitor) 10 mg QHS PO Last administered on 01/26/18at 21: 09; Start 01/25/18 at 21:00 Gabapentin (Neurontin) 300 mg TID PO Last administered on 01/27/18at 08:49; Start 01/25/18 at 21:00 Glipizide (Glucotrol Er) 10 mg DAILY08 PO Last administered on 01/27/18at 08:48 ; Start 01/26/18 at 08:00 Metoprolol Succinate (Toprol Xl) 50 mg DAILY PO Last administered on at 08:50; Start 01/26/18 at 09:00 Pantoprazole Sodium (Protonix) 40 mg DAILYAC PO Last administered on at 05:30; Start 01/26/18 at 07:30 Sertraline HCl (Zoloft) 150 mg DAILY PO Last administered on 01/27/18at 08:50; Start 01/26/18 at 09:00 Fenofibrate (Lofibra) 134 mg DAILY PO Last administered on 01/27/18at 08:51; Start 01/26/18 at 09:00 Acetaminophen (Tylenol) 650 mg Q4HRS PRN PO MILD PAIN / TEMP Last administered on 01/26/18at 21:09; Start 01/25/18 at 18:30 Acetaminophen/ Hydrocodone Bitart (Lortab 5/325) 1 tab Q4HRS PRN PO SEVERE PAIN ; Start 01/25/18 at 18:30 Linezolid (Zyvox) 600 mg BID PO Last administered on 01/27/18at 08:51; Start 01/25/18 at 21:00 Meropenem 500 mg/ Sodium Chloride 50 ml @ 100 mls/hr Q8HRS IV Last administered on 01/27/18at 05:31; Start 01/25/18 at 20:00 Magnesium Hydroxide (Milk Of Magnesia) 2,400 mg DAILY PRN PO CONSTIPATION; Start 01/25/18 at 18:30 Insulin Human Lispro (HumaLOG) 0-6 UNITS BG 300-39... TIDWMEALS SQ Last administered on 01/26/18at 09:35; Start 01/26/18 at 08:00; Stop 01/26/18 at 10 :56; Status DC Insulin Human Lispro (HumaLOG) 0-6 UNITS BG 300-39... TIDWMEALS SQ Last administered on 01/27/18at 08:56; Start 01/26/18 at 12:00 Insulin Human Lispro (HumaLOG) 4 units TIDAC SQ Last administered on at 08:55; Start 01/26/18 at 11:30 Insulin Glargine (Lantus) 10 units QHS SQ Last administered on 01/26/18at 21:21 ; Start 01/26/18 at 21:00 Quetiapine Fumarate (SEROquel) 12.5 mg PRN Q8HRS PRN PO AGITATION Last administered on 01/26/18at 18:58; Start 01/26/18 at 18:45 Lactobacillus Rhamnosus (Culturelle) 1 cap BID PO Last administered on at 08:50; Start 01/26/18 at 21:00 Active Scripts Active Byetta (Exenatide) 10 Mcg/0.04 Ml Pen.injctr 10 Mcg SQ BID Glucophage Xr (Metformin Hcl) 500 Mg Tab.er.24h 500 Mg PO DAILYWBKFT 30 Days Glipizide Er (Glipizide) 2.5 Mg Tab.er.24 10 Mg PO DAILY08 30 Days Allopurinol 100 Mg Tablet 200 Mg PO DAILY 30 Days Protonix (Pantoprazole Sodium) 40 Mg Tablet 40 Mg PO DAILYAC Reported Sertraline Hcl 100 Mg Tablet 100 Mg PO DAILY Toprol Xl (Metoprolol Succinate) 50 Mg Tab.er.24h 50 Mg PO DAILY Tricor (Fenofibrate Nanocrystallized) 145 Mg Tablet 145 Mg PO DAILY Gabapentin 300 Mg Capsule 300 Mg PO TID [place] (Exenatide) 10 Mcg/0.04 Ml Pen.injctr 10 Mcg SQ BID Cosopt Pf Eye Drops (Dorzolamide/Timolol/Pf) 1 Each Droperette 1 Each OP DAILY Aspirin Ec (Aspirin) 325 Mg Tablet.dr 325 Mg PO DAILY [place] 3 1,000 Mg Softgel ([place]-3 Fatty Acids/Fish Oil) 1 Each Capsule 1 Each PO DAILY Vitals/I & O Vital Sign - Last 24 Hours 01/26/18 01/26/18 01/26/18 01/26/18 11:00 19:00 19:50 23:00 Temp 98.9 97.5 100.9 98.9 97.5 100.9 Pulse 92 91 85 Resp 18 18 18 B/P (MAP) 127/89 (102) 169/67 (101) 161/74 (103) Pulse Ox 96 94 92 O2 Delivery Room Air Room Air Room Air Room Air 01/27/18 01/27/18 01/27/18 03:00 07:00 08:50 Temp 98.5 98.4 98.5 98.4 Pulse 75 84 75 Resp 18 16 B/P (MAP) 145/70 (95) 142/72 (95) 145/70 Pulse Ox 94 96 O2 Delivery Room Air Room Air Intake and Output 01/26/18 01/26/18 01/27/18 15:00 23:00 07:00 Intake Total 700 ml Output Total 450 ml 500 ml Balance -450 ml 200 ml ANASTASIYA OH MD Jan 27, 2018 09:47
[2018-01-27 10:30] LABS: HEMOGLOBIN A1C 8.1
[2018-01-27 11:00] VITALS: BP 146/64
--- NOTE | 2018-01-27 11:26 | PDOC ---
Infectious Disease Note Subjective Subjective pt is feeling better ROS ROS no n/v/d/sob Vital Sign Vital Signs Vital Signs Date Time Temp Pulse Resp B/P (MAP) Pulse Ox O2 Delivery O2 Flow Rate FiO2 01/27/18 08:50 75 145/70 01/27/18 07:30 Room Air 01/27/18 07:00 98.4 16 96 98.4 Physical Exam PHYSICAL EXAM GENERAL: Alert and awake gentleman, not in any distress. VITAL SIGNS: Stable. HEENT: NAD. NECK: Supple. No JVP, no lymphadenopathy. LUNGS: Clear. HEART: S1, S2 regular. ABDOMEN: Benign. EXTREMITIES: Right lower extremity is unremarkable. Left lower extremity has a plantar wound with some necrotic tissue and the foot is red as well as red streaking into the leg. Dorsalis pedis is nice, palpable. NEUROLOGIC: The patient is neurologically intact, other than poor hearing. Labs Lab Laboratory Tests Test 01/26/18 12:41 01/26/18 13:02 01/26/18 16:52 01/26/18 20:32 Glucose (Fingerstick) 277 mg/dL (70-99) 296 mg/dL (70-99) 212 mg/dL (70-99) 267 mg/dL (70-99) Test 01/27/18 03:45 01/27/18 04:00 White Blood Count 5.1 x10^3/uL (4.0-11.0) Red Blood Count 4.08 x10^6/uL (4.30-5.70) Hemoglobin 13.3 g/dL (13.0-17.5) Hematocrit 38.4 % (39.0-53.0) Mean Corpuscular Volume 94 fL (79-100) Mean Corpuscular Hemoglobin 33 pg (25-35) Mean Corpuscular Hemoglobin Concent 35 g/dL (31-37) Red Cell Distribution Width 13.5 % (11.5-14.5) Platelet Count 127 x10^3/uL (140-400) Neutrophils (%) (Auto) 65 % (31-73) Lymphocytes (%) (Auto) 20 % (24-48) Monocytes (%) (Auto) 11 % (0-9) Eosinophils (%) (Auto) 3 % (0-3) Basophils (%) (Auto) 1 % (0-3) Neutrophils # (Auto) 3.4 x10^3uL (1.8-7.7) Lymphocytes # (Auto) 1.0 x10^3/uL (1.0-4.8) Monocytes # (Auto) 0.6 x10^3/uL (0.0-1.1) Eosinophils # (Auto) 0.1 x10^3/uL (0.0-0.7) Basophils # (Auto) 0.1 x10^3/uL (0.0-0.2) Sodium Level 141 mmol/L (136-145) Potassium Level 3.8 mmol/L (3.5-5.1) Chloride Level 104 mmol/L (98-107) Carbon Dioxide Level 27 mmol/L (21-32) Anion Gap 10 (6-14) Blood Urea Nitrogen 21 mg/dL (8-26) Creatinine 1.5 mg/dL (0.7-1.3) Estimated GFR (Cockcroft-Gault) 45.6 Glucose Level 198 mg/dL (70-99) Calcium Level 8.9 mg/dL (8.5-10.1) Urine Collection Type Unknown Urine Color Yellow Urine Clarity Clear Urine pH 5.5 Urine Specific [place] 1.025 Urine Protein Negative mg/dL (NEG-TRACE) Urine Glucose (UA) >=1000 mg/dL (NEG) Urine Ketones (Stick) Negative mg/dL (NEG) Urine Blood Negative (NEG) Urine Nitrite Negative (NEG) Urine Bilirubin Negative (NEG) Urine Urobilinogen Dipstick 0.2 mg/dL (0.2 mg/dL) Urine Leukocyte Esterase Negative (NEG) Urine RBC 0 /HPF (0-2) Urine WBC 0 /HPF (0-4) Urine Squamous Epithelial Cells Occ /LPF Urine Bacteria 0 /HPF (0-FEW) Urine Mucus Slight /LPF Micro ANAEROBIC-AEROBIC CULTURE PENDING ANAEROBIC RES 1 PENDING AEROBIC CULT PENDING AEROBIC RES 1 PENDING GRAM STAIN Final Final report GRAM STAIN RES 1 Final Comment No white blood cells seen. GRAM STAIN RES 2 Final Comment Few gram negative diplococci. GRAM STAIN RES 3 Final Comment Few gram negative rods. Performed at: - [facility], [place], [place] [id number] Lockstitch Binder: OLGA Mensah MD, Phone: [phone] Objective Assessment Left foot wound infection Left leg cellulitis Fever Leukocytosis DM CAD Plan Plan of Care zyvox and meropenem MRI, neg off load supportive care ABRAM BENITES MD Jan 27, 2018 11:26
[2018-01-27 15:00] VITALS: BP 131/63
[2018-01-27 19:00] VITALS: BP 134/88
[2018-01-27] MEDS ORDERED: INSULIN GLARGINE 300 UNITS/3 ML INSULN.PEN. SQ SCH (21:00)
[2018-01-27] MEDS: ATORVASTATIN CALCIUM 10 MG TABLET. PO SCH (21:42)
[2018-01-27] MEDS: QUEtiapine 25 MG TABLET. PO PRN (21:43)
[2018-01-27 23:00] VITALS: BP 144/68
[2018-01-28 03:00] VITALS: BP 103/45
[2018-01-28] MEDS: MEROPENEM 500 MG in IV NORMAL SALINE 50ML 50 ML IV SCH ×3 (06:41→23:25)
[2018-01-28] MEDS: PANTOPRAZOLE 40 MG TABLET.DR. PO SCH (06:41)
[2018-01-28] MEDS: HEPARIN for SUB-Q USE 5,000 UNIT/ML VIAL. SQ SCH ×2 (06:45→17:53)
[2018-01-28 07:06] VITALS: BP 128/74
[2018-01-28] MEDS: INSULIN LISPRO 300 UNITS/3 ML INSULN.PEN. SQ SCH ×6 (09:11→17:54)
--- NOTE | 2018-01-28 10:40 | PDOC ---
PROGRESS NOTES Subjective Subjective low grade fever temp 99.1 last night. feels better. still has redness plantar aspect right foot around wound. blood sugars are high and will increase insulin. Objective Objective Vital Signs Date Time Temp Pulse Resp B/P (MAP) Pulse Ox O2 Delivery O2 Flow Rate FiO2 01/28/18 07:06 98.0 71 18 128/74 (92) 94 Room Air 98.0 Intake and Output 01/28/18 07:00 Intake Total 600 ml Output Total 1700 ml Balance -1100 ml Intake Oral 300 ml IV Total 150 ml Other 150 ml Output Urine Total 1700 ml # Voids 6 # Bowel Movements 2 Physical Exam Abdomen: Soft Heart: Regular rate, Normal S1, Normal S2 Extremities: No edema General: Alert HEENT: Atraumatic, Other (hard of hearing) Lungs: Clear to auscultation Neuro: Normal speech Psych/Mental Status: Mental status NL Skin: No rashes, Other (redness around right plantar wound) Assessment Assessment Problems. Infected Left foot ulcer with cellulitis. 2. Diabetes mellitus type 2 with nephropathy. 3. 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 Labs Laboratory Tests Test 01/26/18 12:41 01/26/18 13:02 01/26/18 16:52 01/26/18 20:32 Glucose (Fingerstick) 277 mg/dL (70-99) 296 mg/dL (70-99) 212 mg/dL (70-99) 267 mg/dL (70-99) Test 01/27/18 03:45 01/27/18 04:00 01/27/18 07:43 01/27/18 11:45 White Blood Count 5.1 x10^3/uL (4.0-11.0) Red Blood Count 4.08 x10^6/uL (4.30-5.70) Hemoglobin 13.3 g/dL (13.0-17.5) Hematocrit 38.4 % (39.0-53.0) Mean Corpuscular Volume 94 fL (79-100) Mean Corpuscular Hemoglobin 33 pg (25-35) Mean Corpuscular Hemoglobin Concent 35 g/dL (31-37) Red Cell Distribution Width 13.5 % (11.5-14.5) Platelet Count 127 x10^3/uL (140-400) Neutrophils (%) (Auto) 65 % (31-73) Lymphocytes (%) (Auto) 20 % (24-48) Monocytes (%) (Auto) 11 % (0-9) Eosinophils (%) (Auto) 3 % (0-3) Basophils (%) (Auto) 1 % (0-3) Neutrophils # (Auto) 3.4 x10^3uL (1.8-7.7) Lymphocytes # (Auto) 1.0 x10^3/uL (1.0-4.8) Monocytes # (Auto) 0.6 x10^3/uL (0.0-1.1) Eosinophils # (Auto) 0.1 x10^3/uL (0.0-0.7) Basophils # (Auto) 0.1 x10^3/uL (0.0-0.2) Sodium Level 141 mmol/L (136-145) Potassium Level 3.8 mmol/L (3.5-5.1) Chloride Level 104 mmol/L (98-107) Carbon Dioxide Level 27 mmol/L (21-32) Anion Gap 10 (6-14) Blood Urea Nitrogen 21 mg/dL (8-26) Creatinine 1.5 mg/dL (0.7-1.3) Estimated GFR (Cockcroft-Gault) 45.6 Glucose Level 198 mg/dL (70-99) Calcium Level 8.9 mg/dL (8.5-10.1) Urine Collection Type Unknown Urine Color Yellow Urine Clarity Clear Urine pH 5.5 Urine Specific [place] 1.025 Urine Protein Negative mg/dL (NEG-TRACE) Urine Glucose (UA) >=1000 mg/dL (NEG) Urine Ketones (Stick) Negative mg/dL (NEG) Urine Blood Negative (NEG) Urine Nitrite Negative (NEG) Urine Bilirubin Negative (NEG) Urine Urobilinogen Dipstick 0.2 mg/dL (0.2 mg/dL) Urine Leukocyte Esterase Negative (NEG) Urine RBC 0 /HPF (0-2) Urine WBC 0 /HPF (0-4) Urine Squamous Epithelial Cells Occ /LPF Urine Bacteria 0 /HPF (0-FEW) Urine Mucus Slight /LPF Glucose (Fingerstick) 225 mg/dL (70-99) 270 mg/dL (70-99) Test 01/27/18 16:48 01/27/18 21:05 01/28/18 07:10 Glucose (Fingerstick) 245 mg/dL (70-99) 235 mg/dL (70-99) 205 mg/dL (70-99) Laboratory Tests Test 01/27/18 11:45 01/27/18 16:48 01/27/18 21:05 01/28/18 07:10 Glucose (Fingerstick) 270 mg/dL (70-99) 245 mg/dL (70-99) 235 mg/dL (70-99) 205 mg/dL (70-99) Microbiology 01/25/18 Blood Culture - Preliminary, Resulted NO GROWTH AFTER 2 DAYS 01/25/18 Anaerobic/Aerobic Culture, Resulted Pending 01/25/18 Anaerobic Culture Result 1 (NICOLAS), Resulted Pending 01/25/18 Aerobic Culture, Resulted Pending 01/25/18 Aerobic Culture Result 1 (NICOLAS), Resulted Pending 01/25/18 Gram Stain - Final, Resulted 01/25/18 Gram Stain Result 1 (NICOLAS) - Final, Resulted 01/25/18 Gram Stain Result 2 (NICOLAS) - Final, Resulted 01/25/18 Gram Stain Result 3 (NICOLAS) - Final, Resulted Medications Current Medications Vancomycin HCl (Vanco Per Pharmacy) 1 each 1X ONCE MC ; Start 01/25/18 at 15: 30; Stop 01/25/18 at 15:31; Status UNV Clindamycin Phosphate 50 ml @ 100 mls/hr 1X ONCE IV Last administered on at 16:17; Start 01/25/18 at 15:45; Stop 01/25/18 at 16:14; Status DC Vancomycin HCl 2 gm/Sodium Chloride 500 ml @ 250 mls/hr 1X ONCE IV Last administered on 01/25/18at 16:50; Start 01/25/18 at 15:45; Stop 01/25/18 at 17 :44; Status DC Vancomycin HCl (Vanco Per Pharmacy) 1 each PRN DAILY PRN MC SEE COMMENTS; Start 01/25/18 at 18:30; Stop 01/25/18 at 18:36; Status DC Heparin Sodium (Porcine) (Heparin Sodium) 5,000 unit BID66 SQ Last administered on 01/28/18 06:45; Start 01/26/18 at 06:00 Allopurinol (Zyloprim) 200 mg DAILY PO Last administered on 01/27/18 08:49; Start 01/26/18 at 09:00 Aspirin ([place] Aspirin) 325 mg DAILY PO Last administered on 01/27/18 08:50; Start 01/26/18 at 09:00 Atorvastatin Calcium (Lipitor) 10 mg QHS PO Last administered on 01/27/18 21: 42; Start 01/25/18 at 21:00 Gabapentin (Neurontin) 300 mg TID PO Last administered on 01/27/18 21:42; Start 01/25/18 at 21:00 Glipizide (Glucotrol Er) 10 mg DAILY08 PO Last administered on 01/27/18 08:48 ; Start 01/26/18 at 08:00 Metoprolol Succinate (Toprol Xl) 50 mg DAILY PO Last administered on 08:50; Start 01/26/18 at 09:00 Pantoprazole Sodium (Protonix) 40 mg DAILYAC PO Last administered on 06:41; Start 01/26/18 at 07:30 Sertraline HCl (Zoloft) 150 mg DAILY PO Last administered on 01/27/18 08:50; Start 01/26/18 at 09:00 Fenofibrate (Lofibra) 134 mg DAILY PO Last administered on 01/27/18 08:51; Start 01/26/18 at 09:00 Acetaminophen (Tylenol) 650 mg Q4HRS PRN PO MILD PAIN / TEMP Last administered on 01/26/18 21:09; Start 01/25/18 at 18:30 Acetaminophen/ Hydrocodone Bitart (Lortab 5/325) 1 tab Q4HRS PRN PO SEVERE PAIN ; Start 01/25/18 at 18:30 Linezolid (Zyvox) 600 mg BID PO Last administered on 01/27/18 21:43; Start 01/25/18 at 21:00 Meropenem 500 mg/ Sodium Chloride 50 ml @ 100 mls/hr Q8HRS IV Last administered on 10/27/18at 06:41; Start 01/25/18 at 20:00 Magnesium Hydroxide (Milk Of Magnesia) 2,400 mg DAILY PRN PO CONSTIPATION; Start 01/25/18 at 18:30 Insulin Human Lispro (HumaLOG) 0-6 UNITS BG 300-39... TIDWMEALS SQ Last administered on 01/26/18at 09:35; Start 01/26/18 at 08:00; Stop 01/26/18 at 10 :56; Status DC Insulin Human Lispro (HumaLOG) 0-6 UNITS BG 300-39... TIDWMEALS SQ Last administered on 01/28/18at 09:12; Start 01/26/18 at 12:00 Insulin Human Lispro (HumaLOG) 4 units TIDAC SQ Last administered on at 08:55; Start 01/26/18 at 11:30; Stop 01/27/18 at 09:44; Status DC Insulin Glargine (Lantus) 10 units QHS SQ Last administered on 01/26/18at 21:21 ; Start 01/26/18 at 21:00; Stop 01/27/18 at 09:44; Status DC Quetiapine Fumarate (SEROquel) 12.5 mg PRN Q8HRS PRN PO AGITATION Last administered on 01/27/18at 21:43; Start 01/26/18 at 18:45 Lactobacillus Rhamnosus (Culturelle) 1 cap BID PO Last administered on at 21:42; Start 01/26/18 at 21:00 Insulin Glargine (Lantus) 16 units QHS SQ Last administered on 01/27/18at 21:46 ; Start 01/27/18 at 21:00 Insulin Human Lispro (HumaLOG) 8 units TIDAC SQ Last administered on at 09:11; Start 01/27/18 at 11:30 Active Scripts Active Byetta (Exenatide) 10 Mcg/0.04 Ml Pen.injctr 10 Mcg SQ BID Glucophage Xr (Metformin Hcl) 500 Mg Tab.er.24h 500 Mg PO DAILYWBKFT 30 Days Glipizide Er (Glipizide) 2.5 Mg Tab.er.24 10 Mg PO DAILY08 30 Days Allopurinol 100 Mg Tablet 200 Mg PO DAILY 30 Days Protonix (Pantoprazole Sodium) 40 Mg Tablet 40 Mg PO DAILYAC Reported Sertraline Hcl 100 Mg Tablet 100 Mg PO DAILY Toprol Xl (Metoprolol Succinate) 50 Mg Tab.er.24h 50 Mg PO DAILY Tricor (Fenofibrate Nanocrystallized) 145 Mg Tablet 145 Mg PO DAILY Gabapentin 300 Mg Capsule 300 Mg PO TID [place]etta (Exenatide) 10 Mcg/0.04 Ml Pen.injctr 10 Mcg SQ BID Cosopt Pf Eye Drops (Dorzolamide/Timolol/Pf) 1 Each Droperette 1 Each OP DAILY Aspirin Ec (Aspirin) 325 Mg Tablet.dr 325 Mg PO DAILY [place] 3 1,000 Mg Softgel ([place]-3 Fatty Acids/Fish Oil) 1 Each Capsule 1 Each PO DAILY Vitals/I & O Vital Sign - Last 24 Hours 01/27/18 01/27/18 01/27/18 01/27/18 11:00 15:00 19:00 20:05 Temp 97.9 98.1 98.6 97.9 98.1 98.6 Pulse 70 67 76 Resp 16 18 18 B/P (MAP) 146/64 (91) 131/63 (85) 134/88 (103) Pulse Ox 94 95 94 O2 Delivery Room Air Room Air Room Air Room Air 01/27/18 01/28/18 01/28/18 23:00 03:00 07:06 Temp 99.1 97.3 98.0 99.1 97.3 98.0 Pulse 66 70 71 Resp 18 18 18 B/P (MAP) 144/68 (93) 103/45 (64) 128/74 (92) Pulse Ox 96 94 94 O2 Delivery Room Air Room Air Room Air Intake and Output 01/27/18 01/27/18 01/28/18 15:00 23:00 07:00 Intake Total 600 ml Output Total 300 ml 500 ml 900 ml Balance -300 ml -500 ml -300 ml ANASTASIYA OH MD Jan 28, 2018 10:40
[2018-01-28 10:50] VITALS: BP 110/60
[2018-01-28] MEDS: GABAPENTIN 300 MG CAPSULE. PO SCH ×3 (10:52→22:28)
[2018-01-28] MEDS: glipiZIDE ER 2.5 MG TAB.ER.24 PO SCH (10:52)
[2018-01-28] MEDS: FENOFIBRATE,MICRONIZED 134 MG CAPSULE PO SCH (10:53)
[2018-01-28] MEDS: METOPROLOL SUCC 24HR ER 50 MG TAB.ER.24H. PO SCH (10:53)
[2018-01-28] MEDS: LINEZOLID 600 MG TABLET PO SCH ×2 (10:53→22:28)
[2018-01-28] MEDS: ASPIRIN 325 MG TABLET PO SCH (10:53)
[2018-01-28] MEDS: SERTRALINE 50 MG TABLET. PO SCH (10:54)
[2018-01-28] MEDS: LACTOBACILLUS RHAMNOSUS GG 1 CAPSULE. PO SCH ×2 (10:54→23:25)
[2018-01-28] MEDS: ALLOPURINOL 100 MG TABLET. PO SCH (10:55)
[2018-01-28 14:45] VITALS: BP 140/64
[2018-01-28] MEDS ORDERED: LATA2.5D3 EACHEYE (15:48)
--- NOTE | 2018-01-28 16:00 | PDOC ---
Infectious Disease Note Subjective Subjective Loose stools No fevers last 24 hours Denies N/V/cramps/chills ROS ROS per HPI otherwise neg Vital Sign Vital Signs Vital Signs Date Time Temp Pulse Resp B/P (MAP) Pulse Ox O2 Delivery O2 Flow Rate FiO2 01/28/18 14:45 97.9 69 18 140/64 (89) 96 97.9 01/28/18 10:50 Room Air Physical Exam PHYSICAL EXAM GENERAL: Propped up in bed, NAD HEENT: Oral cavity pink, clear. [place] NECK: Supple. LUNGS: Clear. HEART: S1, S2 regular. ABDOMEN: Soft, NT EXTREMITIES: Right lower extremity is unremarkable. Left foot plantar wound with some necrotic tissue , less red NEUROLOGIC: Alert, responds appropriately Labs Lab Laboratory Tests Test 01/27/18 16:48 01/27/18 21:05 01/28/18 07:10 01/28/18 10:57 Glucose (Fingerstick) 245 mg/dL (70-99) 235 mg/dL (70-99) 205 mg/dL (70-99) 259 mg/dL (70-99) Micro Microbiology 01/25/18 Blood Culture - Preliminary, Resulted NO GROWTH AFTER 2 DAYS GRAM STAIN RES 2 Final Comment Few gram negative diplococci. GRAM STAIN RES 3 Final Comment Few gram negative rods. Objective Assessment Left foot wound infection -MRI neg. ESR 26 Left leg cellulitis - improving Fever Leukocytosis - better DM CAD Plan Plan of Care Continue Zyvox and meropenem Probiotics off load supportive care D/w D/w RN Patient seen and examined. Chart reviewed in detail. Case discussed with [employer]> Agree with above plan CHAZ WALTERS APRN Jan 28, 2018 16:00 HAILEE GUAMAN MD Jan 28, 2018 22:52
[2018-01-28 19:15] VITALS: BP 123/72
[2018-01-28] MEDS: TIMOLOL 0.5% OPHTH SOLUTION 5ML BOTTLE. OU SCH (21:00)
[2018-01-28] MEDS ORDERED: INSULIN GLARGINE 300 UNITS/3 ML INSULN.PEN. SQ SCH (21:00)
[2018-01-28] MEDS: ATORVASTATIN CALCIUM 10 MG TABLET. PO SCH (22:28)
[2018-01-28] MEDS: DORZOLAMIDE 2% OPHTH SOLUTION 10ML BOTTLE. OU SCH (22:29)
[2018-01-28] MEDS: LATANOPROST 0.005% OPHTH SOLUTION 2.5ML BOTTLE. OU SCH (22:30)
[2018-01-28 23:01] VITALS: BP 146/77
[2018-01-29 02:46] VITALS: BP 135/73
[2018-01-29 06:15] LABS: BASO # 0.1 x10^3/uL (0.0-0.2); BASO % 1 % (0-3); EOS # 0.4 x10^3/uL (0.0-0.7); EOS % 5 % (0-3); HEMATOCRIT 39.4 % (39.0-53.0); HEMOGLOBIN 13.5 g/dL (13.0-17.5); LYMPH # 1.7 x10^3/uL (1.0-4.8); LYMPH % 24 % (24-48); MEAN CORPUSCULAR HEMOGLOBIN 32 pg (25-35); MEAN CORPUSCULAR HGB CONC 34 g/dL (31-37); MEAN CORPUSCULAR VOLUME 94 fL (79-100); MONO # 0.5 x10^3/uL (0.0-1.1); MONO % 8 % (0-9); NEUT # 4.4 x10^3uL (1.8-7.7); NEUT % 62 % (31-73); PLATELET COUNT 146 x10^3/uL (140-400); RED CELL DISTRIBUTION WIDTH 13.8 % (11.5-14.5); WHITE BLOOD COUNT 7.1 x10^3/uL (4.0-11.0)
[2018-01-29 06:29] LABS: CALCIUM 9.1 mg/dL (8.5-10.1); CREATININE 1.4 mg/dL (0.7-1.3); GFR 49.4; POTASSIUM 4.1 mmol/L (3.5-5.1)
[2018-01-29] MEDS: MEROPENEM 500 MG in IV NORMAL SALINE 50ML 50 ML IV SCH ×3 (06:30→22:58)
[2018-01-29] MEDS: HEPARIN for SUB-Q USE 5,000 UNIT/ML VIAL. SQ SCH ×3 (06:37→22:53)
[2018-01-29] MEDS: PANTOPRAZOLE 40 MG TABLET.DR. PO SCH (06:37)
[2018-01-29 07:00] VITALS: BP 136/74
[2018-01-29] MEDS: LACTOBACILLUS RHAMNOSUS GG 1 CAPSULE. PO SCH ×2 (09:28→23:31)
[2018-01-29] MEDS: SERTRALINE 50 MG TABLET. PO SCH (09:28)
[2018-01-29] MEDS: ALLOPURINOL 100 MG TABLET. PO SCH (09:29)
[2018-01-29] MEDS: glipiZIDE ER 2.5 MG TAB.ER.24 PO SCH (09:29)
[2018-01-29] MEDS: ASPIRIN 325 MG TABLET PO SCH (09:29)
[2018-01-29] MEDS: FENOFIBRATE,MICRONIZED 134 MG CAPSULE PO SCH (09:29)
[2018-01-29] MEDS: LINEZOLID 600 MG TABLET PO SCH ×2 (09:29→22:56)
[2018-01-29] MEDS: METOPROLOL SUCC 24HR ER 50 MG TAB.ER.24H. PO SCH (09:30)
[2018-01-29] MEDS: GABAPENTIN 300 MG CAPSULE. PO SCH ×3 (09:30→22:56)
[2018-01-29] MEDS: TIMOLOL 0.5% OPHTH SOLUTION 5ML BOTTLE. OU SCH ×2 (09:31→22:57)
[2018-01-29] MEDS: DORZOLAMIDE 2% OPHTH SOLUTION 10ML BOTTLE. OU SCH ×2 (09:32→22:57)
[2018-01-29] MEDS: INSULIN LISPRO 300 UNITS/3 ML INSULN.PEN. SQ SCH ×6 (09:40→17:35)
--- NOTE | 2018-01-29 10:08 | PDOC ---
PROGRESS NOTES Subjective Subjective feels better. lab reviewed. blood sugars still high but better. cellulitis improving around left plantar wound. discussed with PT . will have [facility] see him to see if they can make a shoe adjustment to off load plantar wound Objective Objective Vital Signs Date Time Temp Pulse Resp B/P (MAP) Pulse Ox O2 Delivery O2 Flow Rate FiO2 01/29/18 09:30 66 135/73 01/29/18 02:46 98.4 18 95 Room Air 98.4 Intake and Output 01/29/18 07:00 Intake Total 360 ml Output Total 825 ml Balance -465 ml Intake Oral 360 ml Output Urine Total 825 ml # Voids 3 # Bowel Movements 4 Physical Exam Abdomen: Soft Heart: Regular rate, Normal S1, Normal S2 Extremities: No edema General: Alert HEENT: Atraumatic Lungs: Clear to auscultation Neuro: Normal speech Psych/Mental Status: Mental status NL Skin: Other (less redness around plantar wound left foot) Assessment Assessment Problems Infected Left foot ulcer with cellulitis. cellulitis improving 2. Diabetes mellitus type 2 with nephropathy. 3. 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 Labs Laboratory Tests Test 01/27/18 11:45 01/27/18 16:48 01/27/18 21:05 01/28/18 07:10 Glucose (Fingerstick) 270 mg/dL (70-99) 245 mg/dL (70-99) 235 mg/dL (70-99) 205 mg/dL (70-99) Test 01/28/18 10:57 01/28/18 16:19 01/28/18 20:56 01/29/18 05:25 Glucose (Fingerstick) 259 mg/dL (70-99) 234 mg/dL (70-99) 177 mg/dL (70-99) White Blood Count 7.1 x10^3/uL (4.0-11.0) Red Blood Count 4.20 x10^6/uL (4.30-5.70) Hemoglobin 13.5 g/dL (13.0-17.5) Hematocrit 39.4 % (39.0-53.0) Mean Corpuscular Volume 94 fL (79-100) Mean Corpuscular Hemoglobin 32 pg (25-35) Mean Corpuscular Hemoglobin Concent 34 g/dL (31-37) Red Cell Distribution Width 13.8 % (11.5-14.5) Platelet Count 146 x10^3/uL (140-400) Neutrophils (%) (Auto) 62 % (31-73) Lymphocytes (%) (Auto) 24 % (24-48) Monocytes (%) (Auto) 8 % (0-9) Eosinophils (%) (Auto) 5 % (0-3) Basophils (%) (Auto) 1 % (0-3) Neutrophils # (Auto) 4.4 x10^3uL (1.8-7.7) Lymphocytes # (Auto) 1.7 x10^3/uL (1.0-4.8) Monocytes # (Auto) 0.5 x10^3/uL (0.0-1.1) Eosinophils # (Auto) 0.4 x10^3/uL (0.0-0.7) Basophils # (Auto) 0.1 x10^3/uL (0.0-0.2) Sodium Level 141 mmol/L (136-145) Potassium Level 4.1 mmol/L (3.5-5.1) Chloride Level 105 mmol/L (98-107) Carbon Dioxide Level 26 mmol/L (21-32) Anion Gap 10 (6-14) Blood Urea Nitrogen 26 mg/dL (8-26) Creatinine 1.4 mg/dL (0.7-1.3) Estimated GFR (Cockcroft-Gault) 49.4 Glucose Level 182 mg/dL (70-99) Calcium Level 9.1 mg/dL (8.5-10.1) Test 01/29/18 08:06 Glucose (Fingerstick) 219 mg/dL (70-99) Laboratory Tests Test 01/28/18 10:57 01/28/18 16:19 01/28/18 20:56 01/29/18 05:25 Glucose (Fingerstick) 259 mg/dL (70-99) 234 mg/dL (70-99) 177 mg/dL (70-99) White Blood Count 7.1 x10^3/uL (4.0-11.0) Red Blood Count 4.20 x10^6/uL (4.30-5.70) Hemoglobin 13.5 g/dL (13.0-17.5) Hematocrit 39.4 % (39.0-53.0) Mean Corpuscular Volume 94 fL (79-100) Mean Corpuscular Hemoglobin 32 pg (25-35) Mean Corpuscular Hemoglobin Concent 34 g/dL (31-37) Red Cell Distribution Width 13.8 % (11.5-14.5) Platelet Count 146 x10^3/uL (140-400) Neutrophils (%) (Auto) 62 % (31-73) Lymphocytes (%) (Auto) 24 % (24-48) Monocytes (%) (Auto) 8 % (0-9) Eosinophils (%) (Auto) 5 % (0-3) Basophils (%) (Auto) 1 % (0-3) Neutrophils # (Auto) 4.4 x10^3uL (1.8-7.7) Lymphocytes # (Auto) 1.7 x10^3/uL (1.0-4.8) Monocytes # (Auto) 0.5 x10^3/uL (0.0-1.1) Eosinophils # (Auto) 0.4 x10^3/uL (0.0-0.7) Basophils # (Auto) 0.1 x10^3/uL (0.0-0.2) Sodium Level 141 mmol/L (136-145) Potassium Level 4.1 mmol/L (3.5-5.1) Chloride Level 105 mmol/L (98-107) Carbon Dioxide Level 26 mmol/L (21-32) Anion Gap 10 (6-14) Blood Urea Nitrogen 26 mg/dL (8-26) Creatinine 1.4 mg/dL (0.7-1.3) Estimated GFR (Cockcroft-Gault) 49.4 Glucose Level 182 mg/dL (70-99) Calcium Level 9.1 mg/dL (8.5-10.1) Test 01/29/18 08:06 Glucose (Fingerstick) 219 mg/dL (70-99) Microbiology 01/25/18 Blood Culture - Preliminary, Resulted NO GROWTH AFTER 3 DAYS 01/25/18 Anaerobic/Aerobic Culture, Resulted Pending 01/25/18 Anaerobic Culture Result 1 (NCIOLAS), Resulted Pending 01/25/18 Aerobic Culture - Preliminary, Resulted 01/25/18 Aerobic Culture Result 1 (NCIOLAS) - Preliminary, Resulted 01/25/18 Gram Stain - Final, Resulted 01/25/18 Gram Stain Result 1 (NICOLAS) - Final, Resulted 01/25/18 Gram Stain Result 2 (NICOLAS) - Final, Resulted 01/25/18 Gram Stain Result 3 (NICOLAS) - Final, Resulted Medications Current Medications Vancomycin HCl (Vanco Per Pharmacy) 1 each 1X ONCE MC ; Start 01/25/18 at 15: 30; Stop 01/25/18 at 15:31; Status UNV Clindamycin Phosphate 50 ml @ 100 mls/hr 1X ONCE IV Last administered on at 16:17; Start 01/25/18 at 15:45; Stop 01/25/18 at 16:14; Status DC Vancomycin HCl 2 gm/Sodium Chloride 500 ml @ 250 mls/hr 1X ONCE IV Last administered on 01/25/18at 16:50; Start 01/25/18 at 15:45; Stop 01/25/18 at 17 :44; Status DC Vancomycin HCl (Vanco Per Pharmacy) 1 each PRN DAILY PRN MC SEE COMMENTS; Start 01/25/18 at 18:30; Stop 01/25/18 at 18:36; Status DC Heparin Sodium (Porcine) (Heparin Sodium) 5,000 unit BID66 SQ Last administered on 01/29/18at 06:37; Start 01/26/18 at 06:00 Allopurinol (Zyloprim) 200 mg DAILY PO Last administered on 01/29/18at 09:29; Start 01/26/18 at 09:00 Aspirin ([place] Aspirin) 325 mg DAILY PO Last administered on 01/29/18at 09:29; Start 01/26/18 at 09:00 Atorvastatin Calcium (Lipitor) 10 mg QHS PO Last administered on 01/28/18at 22: 28; Start 01/25/18 at 21:00 Gabapentin (Neurontin) 300 mg TID PO Last administered on 01/29/18at 09:30; Start 01/25/18 at 21:00 Glipizide (Glucotrol Er) 10 mg DAILY08 PO Last administered on 01/29/18 09:29 ; Start 01/26/18 at 08:00 Metoprolol Succinate (Toprol Xl) 50 mg DAILY PO Last administered on 09:30; Start 01/26/18 at 09:00 Pantoprazole Sodium (Protonix) 40 mg DAILYAC PO Last administered on 06:37; Start 01/26/18 at 07:30 Sertraline HCl (Zoloft) 150 mg DAILY PO Last administered on 01/29/18 09:28; Start 01/26/18 at 09:00 Fenofibrate (Lofibra) 134 mg DAILY PO Last administered on 01/29/18 09:29; Start 01/26/18 at 09:00 Acetaminophen (Tylenol) 650 mg Q4HRS PRN PO MILD PAIN / TEMP Last administered on 01/26/18 21:09; Start 01/25/18 at 18:30 Acetaminophen/ Hydrocodone Bitart (Lortab 5/325) 1 tab Q4HRS PRN PO SEVERE PAIN ; Start 01/25/18 at 18:30 Linezolid (Zyvox) 600 mg BID PO Last administered on 01/29/18 09:29; Start 01/25/18 at 21:00 Meropenem 500 mg/ Sodium Chloride 50 ml @ 100 mls/hr Q8HRS IV Last administered on 01/29/18 06:30; Start 01/25/18 at 20:00 Magnesium Hydroxide (Milk Of Magnesia) 2,400 mg DAILY PRN PO CONSTIPATION; Start 01/25/18 at 18:30 Insulin Human Lispro (HumaLOG) 0-6 UNITS BG 300-39... TIDWMEALS SQ Last administered on 01/26/18 09:35; Start 01/26/18 at 08:00; Stop 01/26/18 at 10 :56; Status DC Insulin Human Lispro (HumaLOG) 0-6 UNITS BG 300-39... TIDWMEALS SQ Last administered on 01/29/18 09:41; Start 01/26/18 at 12:00 Insulin Human Lispro (HumaLOG) 4 units TIDAC SQ Last administered on 08:55; Start 01/26/18 at 11:30; Stop 01/27/18 at 09:44; Status DC Insulin Glargine (Lantus) 10 units QHS SQ Last administered on 01/26/18at 21:21 ; Start 01/26/18 at 21:00; Stop 01/27/18 at 09:44; Status DC Quetiapine Fumarate (SEROquel) 12.5 mg PRN Q8HRS PRN PO AGITATION Last administered on 01/27/18at 21:43; Start 01/26/18 at 18:45 Lactobacillus Rhamnosus (Culturelle) 1 cap BID PO Last administered on 09:28; Start 01/26/18 at 21:00 Insulin Glargine (Lantus) 16 units QHS SQ Last administered on 01/27/18at 21:46 ; Start 01/27/18 at 21:00; Stop 01/28/18 at 10:38; Status DC Insulin Human Lispro (HumaLOG) 8 units TIDAC SQ Last administered on at 09:11; Start 01/27/18 at 11:30; Stop 01/28/18 at 10:38; Status DC Insulin Glargine (Lantus) 22 units QHS SQ Last administered on 01/28/18at 22:34 ; Start 01/28/18 at 21:00 Insulin Human Lispro (HumaLOG) 12 units TIDAC SQ Last administered on at 09:40; Start 01/28/18 at 11:30 Dorzolamide HCl (Trusopt) 1 drop BID OU Last administered on 01/29/18 09:32; Start 01/28/18 at 21:00 Latanoprost (Xalatan) 1 drop QHS OU Last administered on 01/28/18at 22:30; Start 01/28/18 at 21:00 Timolol Maleate (Timoptic 0.5% Oph) 1 drop BID OU Last administered on 09:31; Start 01/28/18 at 21:00 Active Scripts Active [place]etta (Exenatide) 10 Mcg/0.04 Ml Pen.injctr 10 Mcg SQ BID Glucophage Xr (Metformin Hcl) 500 Mg Tab.er.24h 500 Mg PO DAILYWBKFT 30 Days Glipizide Er (Glipizide) 2.5 Mg Tab.er.24 10 Mg PO DAILY08 30 Days Allopurinol 100 Mg Tablet 200 Mg PO DAILY 30 Days Protonix (Pantoprazole Sodium) 40 Mg Tablet 40 Mg PO DAILYAC Reported Latanoprost 2.5 Ml Drops 1 Drop EACHEYE QHS Sertraline Hcl 100 Mg Tablet 100 Mg PO DAILY Toprol Xl (Metoprolol Succinate) 50 Mg Tab.er.24h 50 Mg PO DAILY Tricor (Fenofibrate Nanocrystallized) 145 Mg Tablet 145 Mg PO DAILY Gabapentin 300 Mg Capsule 300 Mg PO TID [place] (Exenatide) 10 Mcg/0.04 Ml Pen.injctr 10 Mcg SQ BID Cosopt Pf Eye Drops (Dorzolamide/Timolol/Pf) 1 Each Droperette 1 Drop OU BID Aspirin Ec (Aspirin) 325 Mg Tablet.dr 325 Mg PO DAILY [place] 3 1,000 Mg Softgel ([place]-3 Fatty Acids/Fish Oil) 1 Each Capsule 1 Each PO DAILY Vitals/I & O Vital Sign - Last 24 Hours 01/28/18 01/28/18 01/28/18 01/28/18 10:50 10:53 14:45 19:15 Temp 98.2 97.9 98.3 98.2 97.9 98.3 Pulse 71 71 69 64 Resp 18 18 18 B/P (MAP) 110/60 (77) 128/74 140/64 (89) 123/72 (89) Pulse Ox 95 96 95 O2 Delivery Room Air Room Air 01/28/18 01/28/18 01/29/18 01/29/18 20:00 23:01 02:46 09:30 Temp 98.9 98.4 98.9 98.4 Pulse 67 66 66 Resp 18 18 B/P (MAP) 146/77 (100) 135/73 (93) 135/73 Pulse Ox 94 95 O2 Delivery Room Air Room Air Room Air Intake and Output 01/28/18 01/28/18 01/29/18 15:00 23:00 07:00 Intake Total 360 ml Output Total 100 ml 500 ml 225 ml Balance -100 ml -500 ml 135 ml ANASTASIYA OH MD Jan 29, 2018 10:08
[2018-01-29 11:00] VITALS: BP 127/71
--- NOTE | 2018-01-29 12:17 | PDOC ---
Infectious Disease Note Subjective Subjective Denies pain Hungry No F/C/S ROS ROS per HPI otherwise neg Vital Sign Vital Signs Vital Signs Date Time Temp Pulse Resp B/P (MAP) Pulse Ox O2 Delivery O2 Flow Rate FiO2 01/29/18 09:30 66 135/73 01/29/18 02:46 98.4 18 95 Room Air 98.4 Physical Exam PHYSICAL EXAM GENERAL: Sitting in the chair, watching TV, legs elevated, smiling HEENT: Oral cavity pink, clear. [place] NECK: Supple. LUNGS: Clear. HEART: S1, S2 regular. ABDOMEN: Soft, NT EXTREMITIES: Right lower extremity is unremarkable. Left foot bandaged/shoe in place SKIN: without rash Labs Lab Laboratory Tests Test 01/28/18 16:19 01/28/18 20:56 01/29/18 05:25 01/29/18 08:06 Glucose (Fingerstick) 234 mg/dL (70-99) 177 mg/dL (70-99) 219 mg/dL (70-99) White Blood Count 7.1 x10^3/uL (4.0-11.0) Red Blood Count 4.20 x10^6/uL (4.30-5.70) Hemoglobin 13.5 g/dL (13.0-17.5) Hematocrit 39.4 % (39.0-53.0) Mean Corpuscular Volume 94 fL (79-100) Mean Corpuscular Hemoglobin 32 pg (25-35) Mean Corpuscular Hemoglobin Concent 34 g/dL (31-37) Red Cell Distribution Width 13.8 % (11.5-14.5) Platelet Count 146 x10^3/uL (140-400) Neutrophils (%) (Auto) 62 % (31-73) Lymphocytes (%) (Auto) 24 % (24-48) Monocytes (%) (Auto) 8 % (0-9) Eosinophils (%) (Auto) 5 % (0-3) Basophils (%) (Auto) 1 % (0-3) Neutrophils # (Auto) 4.4 x10^3uL (1.8-7.7) Lymphocytes # (Auto) 1.7 x10^3/uL (1.0-4.8) Monocytes # (Auto) 0.5 x10^3/uL (0.0-1.1) Eosinophils # (Auto) 0.4 x10^3/uL (0.0-0.7) Basophils # (Auto) 0.1 x10^3/uL (0.0-0.2) Sodium Level 141 mmol/L (136-145) Potassium Level 4.1 mmol/L (3.5-5.1) Chloride Level 105 mmol/L (98-107) Carbon Dioxide Level 26 mmol/L (21-32) Anion Gap 10 (6-14) Blood Urea Nitrogen 26 mg/dL (8-26) Creatinine 1.4 mg/dL (0.7-1.3) Estimated GFR (Cockcroft-Gault) 49.4 Glucose Level 182 mg/dL (70-99) Calcium Level 9.1 mg/dL (8.5-10.1) Test 01/29/18 11:50 Glucose (Fingerstick) 222 mg/dL (70-99) Micro Microbiology 01/25/18 Blood Culture - Preliminary, Resulted NO GROWTH AFTER 3 DAYS GRAM STAIN RES 2 Final Few gram negative diplococci. GRAM STAIN RES 3 Final Few gram negative rods. AEROBIC RES 1 Preliminary Gram negative rods G Objective Assessment Left foot wound infection. GNR and GN diplococci on gram stain. cx: GNR so far -MRI neg. ESR 26 Left leg cellulitis - improving Fever - better Leukocytosis - better DM CAD Plan Plan of Care Continue Zyvox and meropenem f/u cultures Probiotics off load supportive care D/w RN Patient seen and examined. Chart reviewed in detail. Case discussed with [employer]. Agree with above Plan. CHAZ WALTERS APRN Jan 29, 2018 12:17 HAILEE GUAMAN MD Jan 29, 2018 19:20
[2018-01-29 15:00] VITALS: BP 132/63
[2018-01-29 19:20] VITALS: BP 156/72
[2018-01-29] MEDS ORDERED: INSULIN GLARGINE 300 UNITS/3 ML INSULN.PEN. SQ SCH (21:00)
[2018-01-29] MEDS: ATORVASTATIN CALCIUM 10 MG TABLET. PO SCH (22:56)
[2018-01-29] MEDS: LATANOPROST 0.005% OPHTH SOLUTION 2.5ML BOTTLE. OU SCH (22:57)
[2018-01-29 23:22] VITALS: BP 145/69
[2018-01-30 03:11] VITALS: BP 140/70
[2018-01-30] MEDS: MEROPENEM 500 MG in IV NORMAL SALINE 50ML 50 ML IV SCH (06:11)
[2018-01-30] MEDS: PANTOPRAZOLE 40 MG TABLET.DR. PO SCH (06:13)
[2018-01-30 07:00] VITALS: BP 141/78
[2018-01-30] MEDS: INSULIN LISPRO 300 UNITS/3 ML INSULN.PEN. SQ SCH ×6 (08:00→16:57)
[2018-01-30] MEDS: LACTOBACILLUS RHAMNOSUS GG 1 CAPSULE. PO SCH ×2 (09:32→21:09)
[2018-01-30] MEDS: glipiZIDE ER 2.5 MG TAB.ER.24 PO SCH (09:32)
[2018-01-30] MEDS: ALLOPURINOL 100 MG TABLET. PO SCH (09:33)
[2018-01-30] MEDS: FENOFIBRATE,MICRONIZED 134 MG CAPSULE PO SCH (09:34)
[2018-01-30] MEDS: ASPIRIN 325 MG TABLET PO SCH (09:34)
[2018-01-30] MEDS: GABAPENTIN 300 MG CAPSULE. PO SCH ×3 (09:34→21:09)
[2018-01-30] MEDS: SERTRALINE 50 MG TABLET. PO SCH (09:34)
[2018-01-30] MEDS: LINEZOLID 600 MG TABLET PO SCH (09:34)
[2018-01-30] MEDS: METOPROLOL SUCC 24HR ER 50 MG TAB.ER.24H. PO SCH (09:37)
[2018-01-30] MEDS: DORZOLAMIDE 2% OPHTH SOLUTION 10ML BOTTLE. OU SCH ×2 (09:39→21:00)
[2018-01-30] MEDS: TIMOLOL 0.5% OPHTH SOLUTION 5ML BOTTLE. OU SCH ×2 (09:39→21:11)
--- NOTE | 2018-01-30 10:13 | PDOC ---
PROGRESS NOTES Subjective Subjective has less redness plantar aspect of left foot around wound. note that the wound is on a pressure are between first and second metatarsal head and foot is abnormal so he has incrased pressure in this area when he walks. he will easily open that wound with walking so he needs a snf to off load the wound and will have [employer] see if he can have a special shoe to off load wound. he will need PT to learn to walk to off load the wound. he was having problems with balance with walking per nurse. blood sugars better but still too high and will increase insulin, discussed with dr. lemuel banda who recommends switching to vantin. note PCN allergy. Objective Objective Vital Signs Date Time Temp Pulse Resp B/P (MAP) Pulse Ox O2 Delivery O2 Flow Rate FiO2 01/30/18 09:37 69 141/78 01/30/18 07:00 97.7 18 94 Room Air 97.7 Intake and Output 01/30/18 07:00 Intake Total 980 ml Output Total 825 ml Balance 155 ml Intake Oral 980 ml Output Urine Total 825 ml # Bowel Movements 4 Physical Exam Abdomen: Soft Heart: Regular rate, Normal S1, Normal S2 Extremities: No edema General: Alert HEENT: Atraumatic Lungs: Clear to auscultation Neuro: Normal speech Psych/Mental Status: Mental status NL Skin: Other (less redness around left plantar wound) Assessment Assessment Problems Infected Left foot ulcer with cellulitis. cellulitis improving 2. Diabetes mellitus type 2 with nephropathy. 3. 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 lemuel banda Comment Review of Relevant I have reviewed the following items indra (where applicable) has been applied. Labs Laboratory Tests Test 01/28/18 10:57 01/28/18 16:19 01/28/18 20:56 01/29/18 05:25 Glucose (Fingerstick) 259 mg/dL (70-99) 234 mg/dL (70-99) 177 mg/dL (70-99) White Blood Count 7.1 x10^3/uL (4.0-11.0) Red Blood Count 4.20 x10^6/uL (4.30-5.70) Hemoglobin 13.5 g/dL (13.0-17.5) Hematocrit 39.4 % (39.0-53.0) Mean Corpuscular Volume 94 fL (79-100) Mean Corpuscular Hemoglobin 32 pg (25-35) Mean Corpuscular Hemoglobin Concent 34 g/dL (31-37) Red Cell Distribution Width 13.8 % (11.5-14.5) Platelet Count 146 x10^3/uL (140-400) Neutrophils (%) (Auto) 62 % (31-73) Lymphocytes (%) (Auto) 24 % (24-48) Monocytes (%) (Auto) 8 % (0-9) Eosinophils (%) (Auto) 5 % (0-3) Basophils (%) (Auto) 1 % (0-3) Neutrophils # (Auto) 4.4 x10^3uL (1.8-7.7) Lymphocytes # (Auto) 1.7 x10^3/uL (1.0-4.8) Monocytes # (Auto) 0.5 x10^3/uL (0.0-1.1) Eosinophils # (Auto) 0.4 x10^3/uL (0.0-0.7) Basophils # (Auto) 0.1 x10^3/uL (0.0-0.2) Sodium Level 141 mmol/L (136-145) Potassium Level 4.1 mmol/L (3.5-5.1) Chloride Level 105 mmol/L (98-107) Carbon Dioxide Level 26 mmol/L (21-32) Anion Gap 10 (6-14) Blood Urea Nitrogen 26 mg/dL (8-26) Creatinine 1.4 mg/dL (0.7-1.3) Estimated GFR (Cockcroft-Gault) 49.4 Glucose Level 182 mg/dL (70-99) Calcium Level 9.1 mg/dL (8.5-10.1) Test 01/29/18 08:06 01/29/18 11:50 01/29/18 16:46 01/29/18 20:59 Glucose (Fingerstick) 219 mg/dL (70-99) 222 mg/dL (70-99) 161 mg/dL (70-99) 230 mg/dL (70-99) Test 01/30/18 07:05 Glucose (Fingerstick) 168 mg/dL (70-99) Laboratory Tests Test 01/29/18 11:50 01/29/18 16:46 01/29/18 20:59 01/30/18 07:05 Glucose (Fingerstick) 222 mg/dL (70-99) 161 mg/dL (70-99) 230 mg/dL (70-99) 168 mg/dL (70-99) Microbiology 01/25/18 Blood Culture - Preliminary, Resulted NO GROWTH AFTER 4 DAYS 01/25/18 Anaerobic/Aerobic Culture, Resulted Pending 01/25/18 Anaerobic Culture Result 1 (NICOLAS), Resulted Pending 01/25/18 Aerobic Culture - Final, Resulted 01/25/18 Aerobic Culture Result 1 (NICOLAS) - Final, Resulted 01/25/18 Antimicrobic Susceptibility - Final, Resulted 01/25/18 Gram Stain - Final, Resulted 01/25/18 Gram Stain Result 1 (NICOLAS) - Final, Resulted 01/25/18 Gram Stain Result 2 (NICOLAS) - Final, Resulted 01/25/18 Gram Stain Result 3 (NICOLAS) - Final, Resulted Medications Current Medications Vancomycin HCl (Vanco Per Pharmacy) 1 each 1X ONCE MC ; Start 01/25/18 at 15: 30; Stop 01/25/18 at 15:31; Status UNV Clindamycin Phosphate 50 ml @ 100 mls/hr 1X ONCE IV Last administered on at 16:17; Start 01/25/18 at 15:45; Stop 01/25/18 at 16:14; Status DC Vancomycin HCl 2 gm/Sodium Chloride 500 ml @ 250 mls/hr 1X ONCE IV Last administered on 01/25/18at 16:50; Start 01/25/18 at 15:45; Stop 01/25/18 at 17 :44; Status DC Vancomycin HCl (Vanco Per Pharmacy) 1 each PRN DAILY PRN MC SEE COMMENTS; Start 01/25/18 at 18:30; Stop 01/25/18 at 18:36; Status DC Heparin Sodium (Porcine) (Heparin Sodium) 5,000 unit BID66 SQ Last administered on 01/29/18at 22:53; Start 01/26/18 at 06:00 Allopurinol (Zyloprim) 200 mg DAILY PO Last administered on 01/30/18at 09:33; Start 01/26/18 at 09:00 Aspirin ([place] Aspirin) 325 mg DAILY PO Last administered on 01/30/18 09:34; Start 01/26/18 at 09:00 Atorvastatin Calcium (Lipitor) 10 mg QHS PO Last administered on 01/29/18 22: 56; Start 01/25/18 at 21:00 Gabapentin (Neurontin) 300 mg TID PO Last administered on 01/30/18 09:34; Start 01/25/18 at 21:00 Glipizide (Glucotrol Er) 10 mg DAILY08 PO Last administered on 01/30/18 09:32 ; Start 01/26/18 at 08:00 Metoprolol Succinate (Toprol Xl) 50 mg DAILY PO Last administered on 09:37; Start 01/26/18 at 09:00 Pantoprazole Sodium (Protonix) 40 mg DAILYAC PO Last administered on 06:13; Start 01/26/18 at 07:30 Sertraline HCl (Zoloft) 150 mg DAILY PO Last administered on 01/30/18 09:34; Start 01/26/18 at 09:00 Fenofibrate (Lofibra) 134 mg DAILY PO Last administered on 01/30/18 09:34; Start 01/26/18 at 09:00 Acetaminophen (Tylenol) 650 mg Q4HRS PRN PO MILD PAIN / TEMP Last administered on 01/26/18at 21:09; Start 01/25/18 at 18:30 Acetaminophen/ Hydrocodone Bitart (Lortab 5/325) 1 tab Q4HRS PRN PO SEVERE PAIN ; Start 01/25/18 at 18:30 Linezolid (Zyvox) 600 mg BID PO Last administered on 01/30/18 09:34; Start 01/25/18 at 21:00 Meropenem 500 mg/ Sodium Chloride 50 ml @ 100 mls/hr Q8HRS IV Last administered on 01/30/18 06:11; Start 01/25/18 at 20:00 Magnesium Hydroxide (Milk Of Magnesia) 2,400 mg DAILY PRN PO CONSTIPATION; Start 01/25/18 at 18:30 Insulin Human Lispro (HumaLOG) 0-6 UNITS BG 300-39... TIDWMEALS SQ Last administered on 01/26/18 09:35; Start 01/26/18 at 08:00; Stop 01/26/18 at 10 :56; Status DC Insulin Human Lispro (HumaLOG) 0-6 UNITS BG 300-39... TIDWMEALS SQ Last administered on 01/29/18at 12:39; Start 01/26/18 at 12:00 Insulin Human Lispro (HumaLOG) 4 units TIDAC SQ Last administered on at 08:55; Start 01/26/18 at 11:30; Stop 01/27/18 at 09:44; Status DC Insulin Glargine (Lantus) 10 units QHS SQ Last administered on 01/26/18 21:21 ; Start 01/26/18 at 21:00; Stop 01/27/18 at 09:44; Status DC Quetiapine Fumarate (SEROquel) 12.5 mg PRN Q8HRS PRN PO AGITATION Last administered on 01/27/18at 21:43; Start 01/26/18 at 18:45 Lactobacillus Rhamnosus (Culturelle) 1 cap BID PO Last administered on 09:32; Start 01/26/18 at 21:00 Insulin Glargine (Lantus) 16 units QHS SQ Last administered on 01/27/18 21:46 ; Start 01/27/18 at 21:00; Stop 01/28/18 at 10:38; Status DC Insulin Human Lispro (HumaLOG) 8 units TIDAC SQ Last administered on 09:11; Start 01/27/18 at 11:30; Stop 01/28/18 at 10:38; Status DC Insulin Glargine (Lantus) 22 units QHS SQ Last administered on 01/28/18at 22:34 ; Start 01/28/18 at 21:00; Stop 01/29/18 at 09:59; Status DC Insulin Human Lispro (HumaLOG) 12 units TIDAC SQ Last administered on 09:40; Start 01/28/18 at 11:30; Stop 01/29/18 at 09:59; Status DC Dorzolamide HCl (Trusopt) 1 drop BID OU Last administered on 01/30/18 09:39; Start 01/28/18 at 21:00 Latanoprost (Xalatan) 1 drop QHS OU Last administered on 01/29/18at 22:57; Start 01/28/18 at 21:00 Timolol Maleate (Timoptic 0.5% Ophth) 1 drop BID OU Last administered on 09:39; Start 01/28/18 at 21:00 Insulin Glargine (Lantus) 26 units QHS SQ Last administered on 01/29/18at 22:54 ; Start 01/29/18 at 21:00 Insulin Human Lispro (HumaLOG) 14 units TIDAC SQ Last administered on 09:42; Start 01/29/18 at 11:30 Active Scripts Active Byetta (Exenatide) 10 Mcg/0.04 Ml Pen.injctr 10 Mcg SQ BID Glucophage Xr (Metformin Hcl) 500 Mg Tab.er.24h 500 Mg PO DAILYWBKFT 30 Days Glipizide Er (Glipizide) 2.5 Mg Tab.er.24 10 Mg PO DAILY08 30 Days Allopurinol 100 Mg Tablet 200 Mg PO DAILY 30 Days Protonix (Pantoprazole Sodium) 40 Mg Tablet 40 Mg PO DAILYAC Reported Latanoprost 2.5 Ml Drops 1 Drop EACHEYE QHS Sertraline Hcl 100 Mg Tablet 100 Mg PO DAILY Toprol Xl (Metoprolol Succinate) 50 Mg Tab.er.24h 50 Mg PO DAILY Tricor (Fenofibrate Nanocrystallized) 145 Mg Tablet 145 Mg PO DAILY Gabapentin 300 Mg Capsule 300 Mg PO TID [place]etta (Exenatide) 10 Mcg/0.04 Ml Pen.injctr 10 Mcg SQ BID Cosopt Pf Eye Drops (Dorzolamide/Timolol/Pf) 1 Each Droperette 1 Drop OU BID Aspirin Ec (Aspirin) 325 Mg Tablet.dr 325 Mg PO DAILY [place] 3 1,000 Mg Softgel ([place]-3 Fatty Acids/Fish Oil) 1 Each Capsule 1 Each PO DAILY Vitals/I & O Vital Sign - Last 24 Hours 01/29/18 01/29/18 01/29/18 01/29/18 11:00 15:00 19:20 20:00 Temp 98.7 98.4 98.2 98.7 98.4 98.2 Pulse 95 66 68 Resp 20 18 18 B/P (MAP) 127/71 (89) 132/63 (86) 156/72 (100) Pulse Ox 95 95 95 O2 Delivery Room Air Room Air Room Air Room Air 01/29/18 01/30/18 01/30/18 01/30/18 23:22 03:11 07:00 09:37 Temp 98.4 98.3 97.7 98.4 98.3 97.7 Pulse 64 64 69 69 Resp 18 18 B/P (MAP) 145/69 (94) 140/70 (93) 141/78 (99) 141/78 Pulse Ox 94 95 94 O2 Delivery Room Air Room Air Room Air Intake and Output 01/29/18 01/29/18 01/30/18 15:00 23:00 07:00 Intake Total 500 ml 480 ml Output Total 825 ml Balance 500 ml -345 ml ANASTASIYA OH MD Jan 30, 2018 10:13
[2018-01-30] MEDS ORDERED: SERT50TA8 PO (10:20)
[2018-01-30] MEDS ORDERED: ACET325T9 PO (10:20)
[2018-01-30] MEDS ORDERED: HYDR-2758 PO (10:20)
[2018-01-30] MEDS ORDERED: INSU100I13 SQ (10:20)
[2018-01-30] MEDS ORDERED: ATOR10TA60 PO (10:20)
[2018-01-30] MEDS ORDERED: LACT1CAP19 PO (10:20)
[2018-01-30] MEDS ORDERED: INSU100I11 SQ (10:20)
[2018-01-30] MEDS ORDERED: CEFP100T PO (10:20)
--- NOTE | 2018-01-30 10:22 | DISCH ---
DISCHARGE DISCHARGE INFORMATION: FINAL DIAGNOSIS Problems Medical Problems: (1) Diabetic foot ulcer Status: Acute CONDITION ON DISCHARGE: Stable CODE STATUS: Code Status: Full CUSTODIAL: SNF STAY <30 DAYS: Yes POST DISCHARGE ORDERS: ACTIVITY ORDERS: Resume previous activity, Activity as tolerated WEIGHT BEARING STATUS: Other, see below (no weight bearing plantar left foot wound) DIET AFTER DISCHARGE: ADA WOUND/INCISION CARE: Change dressing OTHER WOUND INSTRUCTIONS: change dry dressing daily and prn OTHER ORDERS: off load left plantar wound FOLLOW-UP: PHYSICIAN FOLLOW-UP: dr. oh 1 week after dismissal from snf TREATMENT/EQUIPMENT ORDERS: ADAPTIVE EQUIPMENT NEEDED: None Physical Therapy For: Evalulation/Treatment Occupational Therapy For: Evaluation/Treatment DISCHARGE MEDICATIONS: Home Meds Active Scripts Insulin Lispro (HUMALOG) 100 Unit/1 Ml Insuln.pen, 16 UNITS SQ TIDAC for 30 Days , #5 EACH Prov:ANASTASIYA OH MD 01/30/18 Insulin Glargine,Hum.rec.anlog (LANTUS SOLOSTAR) 100 Unit/1 Ml Insuln.pen, 30 UNITS SQ QHS for 30 Days, #5 EACH Prov:ANASTASIYA OH MD 01/30/18 Lactobacillus Rhamnosus Gg (CULTURELLE) 1 Each Cap.sprink, 1 CAP PO BID for 7 Days, #14 CAP Prov:ANASTASIYA OH MD 01/30/18 Sertraline Hcl (SERTRALINE HCL) 50 Mg Tablet, 150 MG PO DAILY for 30 Days, #90 TAB Prov:ANASTASIYA OH MD 01/30/18 Acetaminophen (TYLENOL) 325 Mg Tablet, 650 MG PO Q4HRS PRN for MILD PAIN / TEMP , #30 TAB Prov:ANASTASIYA OH MD 01/30/18 Hydrocodone Bit/Acetaminophen (HYDROCODONE-APAP 5-325 ) 1 Each Tablet, 1 TAB PO Q4HRS PRN for SEVERE PAIN, #30 TAB Prov:ANASTASIYA OH MD 01/30/18 Atorvastatin Calcium (ATORVASTATIN CALCIUM) 10 Mg Tablet, 10 MG PO QHS for 30 Days, #30 TAB Prov:ANASTASIYA OH MD 01/30/18 Cefpodoxime Proxetil (CEFPODOXIME PROXETIL) 100 Mg Tablet, 200 MG PO BID for 7 Days, #28 TAB Prov:ANASTASIYA OH MD 01/30/18 Exenatide (BYETTA) 10 Mcg/0.04 Ml Pen.injctr, 10 MCG SQ BID, #60 EACH Prov:ANASTASIYA OH MD 08/25/17 Metformin Hcl (GLUCOPHAGE XR) 500 Mg Tab.er.24h, 500 MG PO DAILYWBKFT for 30 Days, #30 TAB.SR Prov:ANASTASIYA OH MD 08/25/17 Glipizide (GLIPIZIDE ER) 2.5 Mg Tab.er.24, 10 MG PO DAILY08 for 30 Days, #120 TAB.SR Prov:ANASTASIYA OH MD 08/25/17 Allopurinol (ALLOPURINOL) 100 Mg Tablet, 200 MG PO DAILY for 30 Days, #60 TAB Prov:ANASTASIYA OH MD 08/25/17 Pantoprazole Sodium (PROTONIX) 40 Mg Tablet, 40 MG PO DAILYAC, #30 BOT 5 Refills Prov:ANASTASIYA OH MD 09/28/14 Reported Medications Latanoprost (LATANOPROST) 2.5 Ml Drops, 1 DROP EACHEYE QHS for glaucoma, #7.5 ML 3 Refills 01/28/18 Sertraline Hcl (SERTRALINE HCL) 100 Mg Tablet, 100 MG PO DAILY 03/15/13 Metoprolol Succinate (TOPROL XL) 50 Mg Tab.er.24h, 50 MG PO DAILY 03/15/13 Fenofibrate Nanocrystallized (TRICOR) 145 Mg Tablet, 145 MG PO DAILY 03/15/13 Gabapentin (GABAPENTIN) 300 Mg Capsule, 300 MG PO TID 03/15/13 Exenatide (BYETTA) 10 Mcg/0.04 Ml Pen.injctr, 10 MCG SQ BID 03/15/13 Dorzolamide/Timolol/Pf (COSOPT PF EYE DROPS) 1 Each Droperette, 1 DROP OU BID for glaucoma 03/15/13 Aspirin (ASPIRIN EC) 325 Mg Tablet.dr, 325 MG PO DAILY 03/15/13 [place]-3 Fatty Acids/Fish Oil (OMEGA 3 1,000 MG SOFTGEL) 1 Each Capsule, 1 EACH PO DAILY 03/15/13 ANASTASIYA OH MD Jan 30, 2018 10:22
[2018-01-30 11:00] VITALS: BP 147/68
[2018-01-30 15:00] VITALS: BP 170/82
[2018-01-30] MEDS: HEPARIN for SUB-Q USE 5,000 UNIT/ML VIAL. SQ SCH (16:42)
[2018-01-30 19:10] VITALS: BP 138/52
[2018-01-30] MEDS ORDERED: INSULIN GLARGINE 300 UNITS/3 ML INSULN.PEN. SQ SCH (21:00)
[2018-01-30] MEDS: ATORVASTATIN CALCIUM 10 MG TABLET. PO SCH (21:09)
[2018-01-30] MEDS: CEFPODOXIME PROXETIL 100 MG TABLET. PO SCH (21:09)
[2018-01-30] MEDS: LATANOPROST 0.005% OPHTH SOLUTION 2.5ML BOTTLE. OU SCH (21:11)
[2018-01-30 23:15] VITALS: BP 114/59
[2018-01-31 03:26] VITALS: BP 110/60
[2018-01-31] MEDS: PANTOPRAZOLE 40 MG TABLET.DR. PO SCH (06:36)
[2018-01-31] MEDS: HEPARIN for SUB-Q USE 5,000 UNIT/ML VIAL. SQ SCH ×2 (06:39→18:00)
[2018-01-31 07:00] VITALS: BP 124/60
[2018-01-31] MEDS: INSULIN LISPRO 300 UNITS/3 ML INSULN.PEN. SQ SCH ×5 (08:00→17:00)
[2018-01-31] MEDS: LACTOBACILLUS RHAMNOSUS GG 1 CAPSULE. PO SCH ×2 (09:00→20:11)
[2018-01-31] MEDS: glipiZIDE ER 2.5 MG TAB.ER.24 PO SCH (09:50)
[2018-01-31] MEDS: CEFPODOXIME PROXETIL 100 MG TABLET. PO SCH ×2 (09:50→20:10)
[2018-01-31] MEDS: ASPIRIN 325 MG TABLET PO SCH (09:50)
[2018-01-31] MEDS: FENOFIBRATE,MICRONIZED 134 MG CAPSULE PO SCH (09:51)
[2018-01-31] MEDS: METOPROLOL SUCC 24HR ER 50 MG TAB.ER.24H. PO SCH (09:51)
[2018-01-31] MEDS: ALLOPURINOL 100 MG TABLET. PO SCH (09:51)
[2018-01-31] MEDS: GABAPENTIN 300 MG CAPSULE. PO SCH ×3 (09:51→20:10)
[2018-01-31] MEDS: SERTRALINE 50 MG TABLET. PO SCH (09:52)
[2018-01-31] MEDS: TIMOLOL 0.5% OPHTH SOLUTION 5ML BOTTLE. OU SCH ×2 (09:54→20:11)
[2018-01-31] MEDS: DORZOLAMIDE 2% OPHTH SOLUTION 10ML BOTTLE. OU SCH ×2 (09:54→20:11)
--- NOTE | 2018-01-31 09:57 | PDOC ---
PROGRESS NOTES Subjective Subjective feels better. redness left plantar foot around would is less. wound noted, .blood sugars better but concern that they may be getting too low and will decrease insulin. he has been approved at [facility] and awaiting insurance approval. wound culture grew Acintobacter and Bacteroides and nurse to call ID doctor with results. currently taking vantin. Objective Objective Vital Signs Date Time Temp Pulse Resp B/P (MAP) Pulse Ox O2 Delivery O2 Flow Rate FiO2 01/31/18 03:26 97.6 63 18 110/60 (77) 95 Room Air 97.6 01/30/18 20:40 2.0 Intake and Output 01/31/18 07:00 Intake Total 100 ml Output Total 650 ml Balance -550 ml Intake Oral 100 ml Output Urine Total 650 ml # Bowel Movements 5 Physical Exam Abdomen: Soft Heart: Regular rate, Normal S1, Normal S2 Extremities: No edema, Other (less redness around left plantar wound. note indentarion of foot below wound) General: Alert HEENT: Atraumatic Lungs: Clear to auscultation Neuro: Normal speech Psych/Mental Status: Mood NL Skin: No rashes Assessment Assessment ProblemsInfected Left foot ulcer with cellulitis. cellulitis improving 2. Diabetes mellitus type 2 with nephropathy. 3. 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 if he does not off load his wound there i high likelihood that wound will open up again decrease insulin transfer to snf when approved by insurance Comment Review of Relevant I have reviewed the following items indra (where applicable) has been applied. Labs Laboratory Tests Test 01/29/18 11:50 01/29/18 15:40 01/29/18 16:46 01/29/18 20:59 Glucose (Fingerstick) 222 mg/dL (70-99) 161 mg/dL (70-99) 230 mg/dL (70-99) Clostridium difficile Toxin (PCR) Negative (Negative) Test 01/30/18 07:05 01/30/18 11:24 01/30/18 16:34 01/30/18 20:21 Glucose (Fingerstick) 168 mg/dL (70-99) 217 mg/dL (70-99) 110 mg/dL (70-99) 178 mg/dL (70-99) Test 01/31/18 07:46 Glucose (Fingerstick) 116 mg/dL (70-99) Laboratory Tests Test 01/30/18 11:24 01/30/18 16:34 01/30/18 20:21 01/31/18 07:46 Glucose (Fingerstick) 217 mg/dL (70-99) 110 mg/dL (70-99) 178 mg/dL (70-99) 116 mg/dL (70-99) Microbiology 01/25/18 Blood Culture - Final, Complete NO GROWTH AFTER 5 DAYS 01/25/18 Anaerobic/Aerobic Culture - Final, Complete 01/25/18 Anaerobic Culture Result 1 (NICOLAS) - Final, Complete 01/25/18 Aerobic Culture - Final, Complete 01/25/18 Aerobic Culture Result 1 (NICOLAS) - Final, Complete 01/25/18 Antimicrobic Susceptibility - Final, Complete 01/25/18 Gram Stain - Final, Complete 01/25/18 Gram Stain Result 1 (NICOLAS) - Final, Complete 01/25/18 Gram Stain Result 2 (NICOLAS) - Final, Complete 01/25/18 Gram Stain Result 3 (NICOLAS) - Final, Complete Medications Current Medications Vancomycin HCl (Vanco Per Pharmacy) 1 each 1X ONCE MC ; Start 01/25/18 at 15: 30; Stop 01/25/18 at 15:31; Status UNV Clindamycin Phosphate 50 ml @ 100 mls/hr 1X ONCE IV Last administered on at 16:17; Start 01/25/18 at 15:45; Stop 01/25/18 at 16:14; Status DC Vancomycin HCl 2 gm/Sodium Chloride 500 ml @ 250 mls/hr 1X ONCE IV Last administered on 01/25/18at 16:50; Start 01/25/18 at 15:45; Stop 01/25/18 at 17 :44; Status DC Vancomycin HCl (Vanco Per Pharmacy) 1 each PRN DAILY PRN MC SEE COMMENTS; Start 01/25/18 at 18:30; Stop 01/25/18 at 18:36; Status DC Heparin Sodium (Porcine) (Heparin Sodium) 5,000 unit BID66 SQ Last administered on 01/31/18at 06:39; Start 01/26/18 at 06:00 Allopurinol (Zyloprim) 200 mg DAILY PO Last administered on 01/30/18 09:33; Start 01/26/18 at 09:00 Aspirin ([place] Aspirin) 325 mg DAILY PO Last administered on 01/30/18 09:34; Start 01/26/18 at 09:00 Atorvastatin Calcium (Lipitor) 10 mg QHS PO Last administered on 01/30/18 21: 09; Start 01/25/18 at 21:00 Gabapentin (Neurontin) 300 mg TID PO Last administered on 01/30/18 21:09; Start 01/25/18 at 21:00 Glipizide (Glucotrol Er) 10 mg DAILY08 PO Last administered on 01/30/18 09:32 ; Start 01/26/18 at 08:00 Metoprolol Succinate (Toprol Xl) 50 mg DAILY PO Last administered on 09:37; Start 01/26/18 at 09:00 Pantoprazole Sodium (Protonix) 40 mg DAILYAC PO Last administered on 06:36; Start 01/26/18 at 07:30 Sertraline HCl (Zoloft) 150 mg DAILY PO Last administered on 01/30/18 09:34; Start 01/26/18 at 09:00 Fenofibrate (Lofibra) 134 mg DAILY PO Last administered on 01/30/18 09:34; Start 01/26/18 at 09:00 Acetaminophen (Tylenol) 650 mg Q4HRS PRN PO MILD PAIN / TEMP Last administered on 01/26/18 21:09; Start 01/25/18 at 18:30 Acetaminophen/ Hydrocodone Bitart (Lortab 5/325) 1 tab Q4HRS PRN PO SEVERE PAIN ; Start 01/25/18 at 18:30 Linezolid (Zyvox) 600 mg BID PO Last administered on 01/30/18 09:34; Start 01/25/18 at 21:00; Stop 01/30/18 at 10:11; Status DC Meropenem 500 mg/ Sodium Chloride 50 ml @ 100 mls/hr Q8HRS IV Last administered on 01/30/18 06:11; Start 01/25/18 at 20:00; Stop 01/30/18 at 10 :11; Status DC Magnesium Hydroxide (Milk Of Magnesia) 2,400 mg DAILY PRN PO CONSTIPATION; Start 01/25/18 at 18:30 Insulin Human Lispro (HumaLOG) 0-6 UNITS BG 300-39... TIDWMEALS SQ Last administered on 01/26/18at 09:35; Start 01/26/18 at 08:00; Stop 01/26/18 at 10 :56; Status DC Insulin Human Lispro (HumaLOG) 0-6 UNITS BG 300-39... TIDWMEALS SQ Last administered on 01/30/18at 12:18; Start 01/26/18 at 12:00 Insulin Human Lispro (HumaLOG) 4 units TIDAC SQ Last administered on at 08:55; Start 01/26/18 at 11:30; Stop 01/27/18 at 09:44; Status DC Insulin Glargine (Lantus) 10 units QHS SQ Last administered on 01/26/18at 21:21 ; Start 01/26/18 at 21:00; Stop 01/27/18 at 09:44; Status DC Quetiapine Fumarate (SEROquel) 12.5 mg PRN Q8HRS PRN PO AGITATION Last administered on 01/27/18at 21:43; Start 01/26/18 at 18:45 Lactobacillus Rhamnosus (Culturelle) 1 cap BID PO Last administered on at 21:09; Start 01/26/18 at 21:00 Insulin Glargine (Lantus) 16 units QHS SQ Last administered on 01/27/18at 21:46 ; Start 01/27/18 at 21:00; Stop 01/28/18 at 10:38; Status DC Insulin Human Lispro (HumaLOG) 8 units TIDAC SQ Last administered on at 09:11; Start 01/27/18 at 11:30; Stop 01/28/18 at 10:38; Status DC Insulin Glargine (Lantus) 22 units QHS SQ Last administered on 01/28/18at 22:34 ; Start 01/28/18 at 21:00; Stop 01/29/18 at 09:59; Status DC Insulin Human Lispro (HumaLOG) 12 units TIDAC SQ Last administered on 09:40; Start 01/28/18 at 11:30; Stop 01/29/18 at 09:59; Status DC Dorzolamide HCl (Trusopt) 1 drop BID OU Last administered on 01/30/18at 09:39; Start 01/28/18 at 21:00 Latanoprost (Xalatan) 1 drop QHS OU Last administered on 01/30/18at 21:11; Start 01/28/18 at 21:00 Timolol Maleate (Timoptic 0.5% Oph) 1 drop BID OU Last administered on at 21:11; Start 01/28/18 at 21:00 Insulin Glargine (Lantus) 26 units QHS SQ Last administered on 01/29/18at 22:54 ; Start 01/29/18 at 21:00; Stop 01/30/18 at 10:11; Status DC Insulin Human Lispro (HumaLOG) 14 units TIDAC SQ Last administered on at 09:42; Start 01/29/18 at 11:30; Stop 01/30/18 at 10:11; Status DC Insulin Glargine (Lantus) 30 units QHS SQ Last administered on 01/30/18at 21:15 ; Start 01/30/18 at 21:00; Stop 01/31/18 at 09:51; Status DC Insulin Human Lispro (HumaLOG) 16 units TIDAC SQ Last administered on at 16:57; Start 01/30/18 at 11:30; Stop 01/31/18 at 09:51; Status DC Cefpodoxime Proxetil (Vantin) 200 mg BID PO Last administered on 01/30/18at 21: 09; Start 01/30/18 at 21:00 Active Scripts Active Humalog (Insulin Lispro) 100 Unit/1 Ml Insuln.pen 16 Units SQ TIDAC 30 Days Lantus Solostar (Insulin Glargine,Hum.rec.anlog) 100 Unit/1 Ml Insuln.pen 30 Units SQ QHS 30 Days Culturelle (Lactobacillus Rhamnosus Gg) 1 Each Cap.sprink 1 Cap PO BID 7 Days Sertraline Hcl 50 Mg Tablet 150 Mg PO DAILY 30 Days Tylenol (Acetaminophen) 325 Mg Tablet 650 Mg PO Q4HRS PRN Hydrocodone-Apap 5-325 (Hydrocodone Bit/Acetaminophen) 1 Each Tablet 1 Tab PO Q4HRS PRN Atorvastatin Calcium 10 Mg Tablet 10 Mg PO QHS 30 Days Cefpodoxime Proxetil 100 Mg Tablet 200 Mg PO BID 7 Days Glucophage Xr (Metformin Hcl) 500 Mg Tab.er.24h 500 Mg PO DAILYWBKFT 30 Days Glipizide Er (Glipizide) 2.5 Mg Tab.er.24 10 Mg PO DAILY08 30 Days Allopurinol 100 Mg Tablet 200 Mg PO DAILY 30 Days Protonix (Pantoprazole Sodium) 40 Mg Tablet 40 Mg PO DAILYAC Reported Latanoprost 2.5 Ml Drops 1 Drop EACHEYE QHS Toprol Xl (Metoprolol Succinate) 50 Mg Tab.er.24h 50 Mg PO DAILY Tricor (Fenofibrate Nanocrystallized) 145 Mg Tablet 145 Mg PO DAILY Gabapentin 300 Mg Capsule 300 Mg PO TID Cosopt Pf Eye Drops (Dorzolamide/Timolol/Pf) 1 Each Droperette 1 Drop OU BID Aspirin Ec (Aspirin) 325 Mg Tablet.dr 325 Mg PO DAILY [place] 3 1,000 Mg Softgel ([place]-3 Fatty Acids/Fish Oil) 1 Each Capsule 1 Each PO DAILY Vitals/I & O Vital Sign - Last 24 Hours 01/30/18 01/30/18 01/30/18 01/30/18 11:00 15:00 19:10 20:40 Temp 96.4 100.0 98.4 96.4 100.0 98.4 Pulse 57 88 65 Resp 18 18 18 B/P (MAP) 147/68 (94) 170/82 (111) 138/52 (80) Pulse Ox 94 97 96 O2 Delivery Room Air Nasal Cannula Room Air Room Air O2 Flow Rate 2.0 2.0 01/30/18 01/31/18 23:15 03:26 Temp 97.7 97.6 97.7 97.6 Pulse 65 63 Resp 16 18 B/P (MAP) 114/59 (77) 110/60 (77) Pulse Ox 96 95 O2 Delivery Room Air Room Air Intake and Output 01/30/18 01/30/18 01/31/18 15:00 23:00 07:00 Intake Total 100 ml Output Total 200 ml 450 ml Balance -200 ml -350 ml ANASTASIYA OH MD Jan 31, 2018 09:57
[2018-01-31] MEDS ORDERED: INSU100I13 SQ (10:00)
[2018-01-31] MEDS ORDERED: INSU100I11 SQ (10:00)
[2018-01-31 11:00] VITALS: BP 136/68
--- NOTE | 2018-01-31 11:47 | PDOC ---
Infectious Disease Note Subjective: Subjective Denies pain Hungry No F/C/S ROS: ROS Negative except for above. Vital Signs: Vital Signs Vital Signs Date Time Temp Pulse Resp B/P (MAP) Pulse Ox O2 Delivery O2 Flow Rate FiO2 01/31/18 09:51 63 110/60 01/31/18 07:30 Room Air 01/31/18 07:00 98.0 18 94 98.0 01/30/18 20:40 2.0 Physical Exam: PHYSICAL EXAM GENERAL: Sitting in the chair, watching TV, legs elevated, smiling HEENT: Oral cavity pink, clear. [place] NECK: Supple. LUNGS: Clear. HEART: S1, S2 regular. ABDOMEN: Soft, NT EXTREMITIES: Right lower extremity is unremarkable. Left foot bandaged/shoe in place SKIN: without rash Medications: Inpatient Meds: Current Medications Medications (Trade) Dose Ordered Sig/Jaylan Start Time Stop Time Status Last Admin Dose Admin Acetaminophen (Tylenol) 650 mg Q4HRS PRN 01/25/18 18:30 01/26/18 21:09 650 MG Acetaminophen/ Hydrocodone Bitart (Lortab 5/325) 1 tab Q4HRS PRN 01/25/18 18:30 Allopurinol (Zyloprim) 200 mg DAILY 01/26/18 09:00 01/31/18 09:51 200 MG Aspirin (Madison Aspirin) 325 mg DAILY 01/26/18 09:00 01/31/18 09:50 325 MG Atorvastatin Calcium (Lipitor) 10 mg QHS 01/25/18 21:00 01/30/18 21:09 10 MG Cefpodoxime Proxetil (Vantin) 200 mg BID 01/30/18 21:00 01/31/18 09:50 200 MG Clindamycin Phosphate 50 ml @ 100 mls/hr 1X ONCE 01/25/18 15:45 01/25/18 16:14 DC 01/25/18 16:17 100 MLS/HR Dorzolamide HCl (Trusopt) 1 drop BID 01/28/18 21:00 01/31/18 09:54 1 DROP Fenofibrate (Lofibra) 134 mg DAILY 01/26/18 09:00 01/31/18 09:51 134 MG Gabapentin (Neurontin) 300 mg TID 01/25/18 21:00 01/31/18 09:51 300 MG Glipizide (Glucotrol Er) 10 mg DAILY08 01/26/18 08:00 01/31/18 09:50 10 MG Heparin Sodium (Porcine) (Heparin Sodium) 5,000 unit [id number] 01/26/18 06:00 01/31/18 06:39 5,000 UNIT Insulin Glargine (Lantus) 26 units QHS 01/31/18 21:00 Insulin Human Lispro (HumaLOG) 12 units TIDAC 01/31/18 11:30 Lactobacillus Rhamnosus (Culturelle) 1 cap BID 01/26/18 21:00 01/31/18 09:00 1 CAP Latanoprost (Xalatan) 1 drop QHS 01/28/18 21:00 01/30/18 21:11 1 DROP Linezolid (Zyvox) 600 mg BID 01/25/18 21:00 01/30/18 10:11 DC 01/30/18 09:34 600 MG Magnesium Hydroxide (Milk Of Magnesia) 2,400 mg DAILY PRN 01/25/18 18:30 Meropenem 500 mg/ Sodium Chloride 50 ml @ 100 mls/hr Q8HRS 01/25/18 20:00 01/30/18 10:11 DC 01/30/18 06:11 100 MLS/HR Metoprolol Succinate (Toprol Xl) 50 mg DAILY 01/26/18 09:00 01/31/18 09:51 50 MG Pantoprazole Sodium (Protonix) 40 mg DAILYAC 01/26/18 07:30 01/31/18 06:36 40 MG Quetiapine Fumarate (SEROquel) 12.5 mg PRN Q8HRS PRN 01/26/18 18:45 01/27/18 21:43 12.5 MG Sertraline HCl (Zoloft) 150 mg DAILY 01/26/18 09:00 01/31/18 09:52 150 MG Timolol Maleate (Timoptic 0.5% [facility]) 1 drop BID 01/28/18 21:00 01/31/18 09:54 1 DROP Vancomycin HCl (Vanco Per Pharmacy) 1 each PRN DAILY PRN 01/25/18 18:30 01/25/18 18:36 DC Vancomycin HCl 2 gm/Sodium Chloride 500 ml @ 250 mls/hr 1X ONCE 01/25/18 15:45 01/25/18 17:44 DC 01/25/18 16:50 250 MLS/HR Labs: Lab Laboratory Tests Test 01/30/18 16:34 01/30/18 20:21 01/31/18 07:46 Glucose (Fingerstick) 110 mg/dL (70-99) 178 mg/dL (70-99) 116 mg/dL (70-99) Objective: Assessment: Left foot wound infection.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 -MRI neg. ESR 26 Left leg cellulitis - improving Fever - better Leukocytosis - better DM CAD Plan: Plan of Care DC Cefpodoxime Off Zyvox and meropenem limited choices for acinetobacter Cipro 500 mg po bid for 10 days local wound care Probiotics off load supportive care EDWARD BENITES MD Jan 31, 2018 11:47
[2018-01-31 15:00] VITALS: BP 122/58
[2018-01-31 19:25] VITALS: BP 134/69
[2018-01-31] MEDS: LATANOPROST 0.005% OPHTH SOLUTION 2.5ML BOTTLE. OU SCH (20:11)
[2018-01-31] MEDS: ATORVASTATIN CALCIUM 10 MG TABLET. PO SCH (20:12)
[2018-01-31] MEDS ORDERED: INSULIN GLARGINE 300 UNITS/3 ML INSULN.PEN. SQ SCH (21:00)
[2018-01-31 23:29] VITALS: BP 132/68
[2018-02-01 03:18] VITALS: BP 128/64
[2018-02-01 05:07] LABS: BASO # 0.1 x10^3/uL (0.0-0.2); BASO % 1 % (0-3); EOS # 0.5 x10^3/uL (0.0-0.7); EOS % 6 % (0-3); HEMATOCRIT 37.8 % (39.0-53.0); HEMOGLOBIN 13.1 g/dL (13.0-17.5); LYMPH # 2.2 x10^3/uL (1.0-4.8); LYMPH % 26 % (24-48); MEAN CORPUSCULAR HEMOGLOBIN 32 pg (25-35); MEAN CORPUSCULAR HGB CONC 35 g/dL (31-37); MEAN CORPUSCULAR VOLUME 94 fL (79-100); MONO # 0.7 x10^3/uL (0.0-1.1); MONO % 8 % (0-9); NEUT % 59 % (31-73); PLATELET COUNT 156 x10^3/uL (140-400); RED BLOOD COUNT 4.05 x10^6/uL (4.30-5.70); WHITE BLOOD COUNT 8.5 x10^3/uL (4.0-11.0)
[2018-02-01 05:40] LABS: CALCIUM 9.1 mg/dL (8.5-10.1); CREATININE 1.6 mg/dL (0.7-1.3); GFR 42.3; POTASSIUM 4.3 mmol/L (3.5-5.1)
[2018-02-01 07:00] VITALS: BP 145/62
[2018-02-01] MEDS: PANTOPRAZOLE 40 MG TABLET.DR. PO SCH (07:08)
[2018-02-01] MEDS: HEPARIN for SUB-Q USE 5,000 UNIT/ML VIAL. SQ SCH (07:10)
[2018-02-01] MEDS: LACTOBACILLUS RHAMNOSUS GG 1 CAPSULE. PO SCH (09:09)
[2018-02-01] MEDS: METOPROLOL SUCC 24HR ER 50 MG TAB.ER.24H. PO SCH (09:10)
[2018-02-01] MEDS: ALLOPURINOL 100 MG TABLET. PO SCH (09:10)
[2018-02-01] MEDS: GABAPENTIN 300 MG CAPSULE. PO SCH ×2 (09:11→16:35)
[2018-02-01] MEDS: SERTRALINE 50 MG TABLET. PO SCH (09:11)
[2018-02-01] MEDS: CEFPODOXIME PROXETIL 100 MG TABLET. PO SCH (09:11)
[2018-02-01] MEDS: FENOFIBRATE,MICRONIZED 134 MG CAPSULE PO SCH (09:11)
[2018-02-01] MEDS: glipiZIDE ER 2.5 MG TAB.ER.24 PO SCH (09:11)
[2018-02-01] MEDS: ASPIRIN 325 MG TABLET PO SCH (09:11)
[2018-02-01] MEDS: TIMOLOL 0.5% OPHTH SOLUTION 5ML BOTTLE. OU SCH (09:13)
[2018-02-01] MEDS: DORZOLAMIDE 2% OPHTH SOLUTION 10ML BOTTLE. OU SCH (09:14)
[2018-02-01] MEDS: INSULIN LISPRO 300 UNITS/3 ML INSULN.PEN. SQ SCH ×4 (09:15→12:39)
[2018-02-01 11:00] VITALS: BP 145/61
--- NOTE | 2018-02-01 11:55 | PDOC ---
Infectious Disease Note Subjective Subjective Denies pain Hungry No F/C/S Vital Sign Vital Signs Vital Signs Date Time Temp Pulse Resp B/P (MAP) Pulse Ox O2 Delivery O2 Flow Rate FiO2 02/01/18 11:00 98.0 78 18 145/61 (89) 95 Room Air 98.0 01/31/18 20:40 2.0 Physical Exam PHYSICAL EXAM GENERAL: Sitting in the chair, watching TV, legs elevated, smiling HEENT: Oral cavity pink, clear. [place] NECK: Supple. LUNGS: Clear. HEART: S1, S2 regular. ABDOMEN: Soft, NT EXTREMITIES: Right lower extremity is unremarkable. Left foot bandaged/shoe in place ,, wound has healed completely SKIN: without rash Labs Lab Laboratory Tests Test 01/31/18 12:01 01/31/18 17:34 01/31/18 20:06 01/31/18 21:04 Glucose (Fingerstick) 240 mg/dL (70-99) 179 mg/dL (70-99) 197 mg/dL (70-99) 192 mg/dL (70-99) Test 02/01/18 04:20 02/01/18 09:06 White Blood Count 8.5 x10^3/uL (4.0-11.0) Red Blood Count 4.05 x10^6/uL (4.30-5.70) Hemoglobin 13.1 g/dL (13.0-17.5) Hematocrit 37.8 % (39.0-53.0) Mean Corpuscular Volume 94 fL (79-100) Mean Corpuscular Hemoglobin 32 pg (25-35) Mean Corpuscular Hemoglobin Concent 35 g/dL (31-37) Red Cell Distribution Width 14.0 % (11.5-14.5) Platelet Count 156 x10^3/uL (140-400) Neutrophils (%) (Auto) 59 % (31-73) Lymphocytes (%) (Auto) 26 % (24-48) Monocytes (%) (Auto) 8 % (0-9) Eosinophils (%) (Auto) 6 % (0-3) Basophils (%) (Auto) 1 % (0-3) Neutrophils # (Auto) 5.0 x10^3uL (1.8-7.7) Lymphocytes # (Auto) 2.2 x10^3/uL (1.0-4.8) Monocytes # (Auto) 0.7 x10^3/uL (0.0-1.1) Eosinophils # (Auto) 0.5 x10^3/uL (0.0-0.7) Basophils # (Auto) 0.1 x10^3/uL (0.0-0.2) Sodium Level 145 mmol/L (136-145) Potassium Level 4.3 mmol/L (3.5-5.1) Chloride Level 106 mmol/L (98-107) Carbon Dioxide Level 29 mmol/L (21-32) Anion Gap 10 (6-14) Blood Urea Nitrogen 29 mg/dL (8-26) Creatinine 1.6 mg/dL (0.7-1.3) Estimated GFR (Cockcroft-Gault) 42.3 Glucose Level 115 mg/dL (70-99) Calcium Level 9.1 mg/dL (8.5-10.1) Glucose (Fingerstick) 209 mg/dL (70-99) Micro ANAEROBIC-AEROBIC CULTURE PENDING ANAEROBIC RES 1 PENDING AEROBIC CULT PENDING AEROBIC RES 1 PENDING GRAM STAIN Final Final report GRAM STAIN RES 1 Final Comment No white blood cells seen. GRAM STAIN RES 2 Final Comment Few gram negative diplococci. GRAM STAIN RES 3 Final Comment Few gram negative rods. Performed at: [facility] [address], [place], [place] [id number] [employer] Operator: OLGA Mensah MD, Phone: [phone] Objective Assessment Left foot wound infection Left leg cellulitis Fever Leukocytosis DM CAD Plan Plan of Care ok to d/c home, will not worry about culture results with antibiotics since wound has healed completely, and no sign of infection now Probiotics off load supportive care ABRAM BENITES MD Feb 01, 2018 11:55
[2018-02-01 15:00] VITALS: BP 128/61
--- NOTE | 2018-02-01 15:14 | PDOC ---
PROGRESS NOTES Subjective Subjective feels well. lab reviewed. Objective Objective Vital Signs Date Time Temp Pulse Resp B/P (MAP) Pulse Ox O2 Delivery O2 Flow Rate FiO2 02/01/18 11:00 98.0 78 18 145/61 (89) 95 Room Air 98.0 01/31/18 20:40 2.0 Intake and Output 02/01/18 07:00 Intake Total 480 ml Output Total 525 ml Balance -45 ml Intake Oral 480 ml Output Urine Total 525 ml # Voids 3 # Bowel Movements 1 Physical Exam Abdomen: Soft Heart: Regular rate, Normal S1, Normal S2 Extremities: No edema General: Alert HEENT: Atraumatic Lungs: Clear to auscultation Neuro: Normal speech Psych/Mental Status: Mental status NL Skin: No rashes, Other (less redness left plantar foot. wound closed) Assessment Assessment ProblemssInfected Left foot ulcer with cellulitis. cellulitis improving 2. Diabetes mellitus type 2 with nephropathy. 3. 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 Comment Review of Relevant I have reviewed the following items indra (where applicable) has been applied. Labs Laboratory Tests Test 01/30/18 16:34 01/30/18 20:21 01/31/18 07:46 01/31/18 12:01 Glucose (Fingerstick) 110 mg/dL (70-99) 178 mg/dL (70-99) 116 mg/dL (70-99) 240 mg/dL (70-99) Test 01/31/18 17:34 01/31/18 20:06 01/31/18 21:04 02/01/18 04:20 Glucose (Fingerstick) 179 mg/dL (70-99) 197 mg/dL (70-99) 192 mg/dL (70-99) White Blood Count 8.5 x10^3/uL (4.0-11.0) Red Blood Count 4.05 x10^6/uL (4.30-5.70) Hemoglobin 13.1 g/dL (13.0-17.5) Hematocrit 37.8 % (39.0-53.0) Mean Corpuscular Volume 94 fL (79-100) Mean Corpuscular Hemoglobin 32 pg (25-35) Mean Corpuscular Hemoglobin Concent 35 g/dL (31-37) Red Cell Distribution Width 14.0 % (11.5-14.5) Platelet Count 156 x10^3/uL (140-400) Neutrophils (%) (Auto) 59 % (31-73) Lymphocytes (%) (Auto) 26 % (24-48) Monocytes (%) (Auto) 8 % (0-9) Eosinophils (%) (Auto) 6 % (0-3) Basophils (%) (Auto) 1 % (0-3) Neutrophils # (Auto) 5.0 x10^3uL (1.8-7.7) Lymphocytes # (Auto) 2.2 x10^3/uL (1.0-4.8) Monocytes # (Auto) 0.7 x10^3/uL (0.0-1.1) Eosinophils # (Auto) 0.5 x10^3/uL (0.0-0.7) Basophils # (Auto) 0.1 x10^3/uL (0.0-0.2) Sodium Level 145 mmol/L (136-145) Potassium Level 4.3 mmol/L (3.5-5.1) Chloride Level 106 mmol/L (98-107) Carbon Dioxide Level 29 mmol/L (21-32) Anion Gap 10 (6-14) Blood Urea Nitrogen 29 mg/dL (8-26) Creatinine 1.6 mg/dL (0.7-1.3) Estimated GFR (Cockcroft-Gault) 42.3 Glucose Level 115 mg/dL (70-99) Calcium Level 9.1 mg/dL (8.5-10.1) Test 02/01/18 09:06 02/01/18 11:53 Glucose (Fingerstick) 209 mg/dL (70-99) 219 mg/dL (70-99) Laboratory Tests Test 01/31/18 17:34 01/31/18 20:06 01/31/18 21:04 02/01/18 04:20 Glucose (Fingerstick) 179 mg/dL (70-99) 197 mg/dL (70-99) 192 mg/dL (70-99) White Blood Count 8.5 x10^3/uL (4.0-11.0) Red Blood Count 4.05 x10^6/uL (4.30-5.70) Hemoglobin 13.1 g/dL (13.0-17.5) Hematocrit 37.8 % (39.0-53.0) Mean Corpuscular Volume 94 fL (79-100) Mean Corpuscular Hemoglobin 32 pg (25-35) Mean Corpuscular Hemoglobin Concent 35 g/dL (31-37) Red Cell Distribution Width 14.0 % (11.5-14.5) Platelet Count 156 x10^3/uL (140-400) Neutrophils (%) (Auto) 59 % (31-73) Lymphocytes (%) (Auto) 26 % (24-48) Monocytes (%) (Auto) 8 % (0-9) Eosinophils (%) (Auto) 6 % (0-3) Basophils (%) (Auto) 1 % (0-3) Neutrophils # (Auto) 5.0 x10^3uL (1.8-7.7) Lymphocytes # (Auto) 2.2 x10^3/uL (1.0-4.8) Monocytes # (Auto) 0.7 x10^3/uL (0.0-1.1) Eosinophils # (Auto) 0.5 x10^3/uL (0.0-0.7) Basophils # (Auto) 0.1 x10^3/uL (0.0-0.2) Sodium Level 145 mmol/L (136-145) Potassium Level 4.3 mmol/L (3.5-5.1) Chloride Level 106 mmol/L (98-107) Carbon Dioxide Level 29 mmol/L (21-32) Anion Gap 10 (6-14) Blood Urea Nitrogen 29 mg/dL (8-26) Creatinine 1.6 mg/dL (0.7-1.3) Estimated GFR (Cockcroft-Gault) 42.3 Glucose Level 115 mg/dL (70-99) Calcium Level 9.1 mg/dL (8.5-10.1) Test 02/01/18 09:06 02/01/18 11:53 Glucose (Fingerstick) 209 mg/dL (70-99) 219 mg/dL (70-99) Microbiology 01/25/18 Blood Culture - Final, Complete NO GROWTH AFTER 5 DAYS 01/25/18 Anaerobic/Aerobic Culture - Final, Complete 01/25/18 Anaerobic Culture Result 1 (NICOLAS) - Final, Complete 01/25/18 Aerobic Culture - Final, Complete 01/25/18 Aerobic Culture Result 1 (NICOLAS) - Final, Complete 01/25/18 Antimicrobic Susceptibility - Final, Complete 01/25/18 Gram Stain - Final, Complete 01/25/18 Gram Stain Result 1 (NICOLAS) - Final, Complete 01/25/18 Gram Stain Result 2 (NICOLAS) - Final, Complete 01/25/18 Gram Stain Result 3 (NICOLAS) - Final, Complete Medications Current Medications Vancomycin HCl (Vanco Per Pharmacy) 1 each 1X ONCE MC ; Start 01/25/18 at 15: 30; Stop 01/25/18 at 15:31; Status UNV Clindamycin Phosphate 50 ml @ 100 mls/hr 1X ONCE IV Last administered on at 16:17; Start 01/25/18 at 15:45; Stop 01/25/18 at 16:14; Status DC Vancomycin HCl 2 gm/Sodium Chloride 500 ml @ 250 mls/hr 1X ONCE IV Last administered on 01/25/18at 16:50; Start 01/25/18 at 15:45; Stop 01/25/18 at 17 :44; Status DC Vancomycin HCl (Vanco Per Pharmacy) 1 each PRN DAILY PRN MC SEE COMMENTS; Start 01/25/18 at 18:30; Stop 01/25/18 at 18:36; Status DC Heparin Sodium (Porcine) (Heparin Sodium) 5,000 unit BID66 SQ Last administered on 02/01/18at 07:10; Start 01/26/18 at 06:00 Allopurinol (Zyloprim) 200 mg DAILY PO Last administered on 02/01/18at 09:10; Start 01/26/18 at 09:00 Aspirin ([place]ison Aspirin) 325 mg DAILY PO Last administered on 02/01/18at 09:11; Start 01/26/18 at 09:00 Atorvastatin Calcium (Lipitor) 10 mg QHS PO Last administered on 01/31/18at 20: 12; Start 01/25/18 at 21:00 Gabapentin (Neurontin) 300 mg TID PO Last administered on 02/01/18at 09:11; Start 01/25/18 at 21:00 Glipizide (Glucotrol Er) 10 mg DAILY08 PO Last administered on 02/01/18 09:11 ; Start 01/26/18 at 08:00 Metoprolol Succinate (Toprol Xl) 50 mg DAILY PO Last administered on at 09:10; Start 01/26/18 at 09:00 Pantoprazole Sodium (Protonix) 40 mg DAILYAC PO Last administered on 07:08; Start 01/26/18 at 07:30 Sertraline HCl (Zoloft) 150 mg DAILY PO Last administered on 02/01/18 09:11; Start 01/26/18 at 09:00 Fenofibrate (Lofibra) 134 mg DAILY PO Last administered on 02/01/18 09:11; Start 01/26/18 at 09:00 Acetaminophen (Tylenol) 650 mg Q4HRS PRN PO MILD PAIN / TEMP Last administered on 01/26/18at 21:09; Start 01/25/18 at 18:30 Acetaminophen/ Hydrocodone Bitart (Lortab 5/325) 1 tab Q4HRS PRN PO SEVERE PAIN ; Start 01/25/18 at 18:30 Linezolid (Zyvox) 600 mg BID PO Last administered on 01/30/18at 09:34; Start 01/25/18 at 21:00; Stop 01/30/18 at 10:11; Status DC Meropenem 500 mg/ Sodium Chloride 50 ml @ 100 mls/hr Q8HRS IV Last administered on 01/30/18at 06:11; Start 01/25/18 at 20:00; Stop 01/30/18 at 10 :11; Status DC Magnesium Hydroxide (Milk Of Magnesia) 2,400 mg DAILY PRN PO CONSTIPATION; Start 01/25/18 at 18:30 Insulin Human Lispro (HumaLOG) 0-6 UNITS BG 300-39... TIDWMEALS SQ Last administered on 01/26/18at 09:35; Start 01/26/18 at 08:00; Stop 01/26/18 at 10 :56; Status DC Insulin Human Lispro (HumaLOG) 0-6 UNITS BG 300-39... TIDWMEALS SQ Last administered on 02/01/18at 12:39; Start 01/26/18 at 12:00 Insulin Human Lispro (HumaLOG) 4 units TIDAC SQ Last administered on at 08:55; Start 01/26/18 at 11:30; Stop 01/27/18 at 09:44; Status DC Insulin Glargine (Lantus) 10 units QHS SQ Last administered on 01/26/18at 21:21 ; Start 01/26/18 at 21:00; Stop 01/27/18 at 09:44; Status DC Quetiapine Fumarate (SEROquel) 12.5 mg PRN Q8HRS PRN PO AGITATION Last administered on 01/27/18at 21:43; Start 01/26/18 at 18:45 Lactobacillus Rhamnosus (Culturelle) 1 cap BID PO Last administered on 09:09; Start 01/26/18 at 21:00 Insulin Glargine (Lantus) 16 units QHS SQ Last administered on 01/27/18at 21:46 ; Start 01/27/18 at 21:00; Stop 01/28/18 at 10:38; Status DC Insulin Human Lispro (HumaLOG) 8 units TIDAC SQ Last administered on at 09:11; Start 01/27/18 at 11:30; Stop 01/28/18 at 10:38; Status DC Insulin Glargine (Lantus) 22 units QHS SQ Last administered on 01/28/18at 22:34 ; Start 01/28/18 at 21:00; Stop 01/29/18 at 09:59; Status DC Insulin Human Lispro (HumaLOG) 12 units TIDAC SQ Last administered on at 09:40; Start 01/28/18 at 11:30; Stop 01/29/18 at 09:59; Status DC Dorzolamide HCl (Trusopt) 1 drop BID OU Last administered on 02/01/18 09:14; Start 01/28/18 at 21:00 Latanoprost (Xalatan) 1 drop QHS OU Last administered on 01/31/18at 20:11; Start 01/28/18 at 21:00 Timolol Maleate (Timoptic 0.5% [facility]) 1 drop BID OU Last administered on at 09:13; Start 01/28/18 at 21:00 Insulin Glargine (Lantus) 26 units QHS SQ Last administered on 01/29/18at 22:54 ; Start 01/29/18 at 21:00; Stop 01/30/18 at 10:11; Status DC Insulin Human Lispro (HumaLOG) 14 units TIDAC SQ Last administered on at 09:42; Start 01/29/18 at 11:30; Stop 01/30/18 at 10:11; Status DC Insulin Glargine (Lantus) 30 units QHS SQ Last administered on 01/30/18at 21:15 ; Start 01/30/18 at 21:00; Stop 01/31/18 at 09:51; Status DC Insulin Human Lispro (HumaLOG) 16 units TIDAC SQ Last administered on at 16:57; Start 01/30/18 at 11:30; Stop 01/31/18 at 09:51; Status DC Cefpodoxime Proxetil (Vantin) 200 mg BID PO Last administered on 01/31/18at 09: 50; Start 01/30/18 at 21:00; Stop 01/31/18 at 12:44; Status DC Insulin Glargine (Lantus) 26 units QHS SQ Last administered on 01/31/18at 20:17 ; Start 01/31/18 at 21:00 Insulin Human Lispro (HumaLOG) 12 units TIDAC SQ Last administered on at 12:38; Start 01/31/18 at 11:30 Cefpodoxime Proxetil (Vantin) 200 mg BID PO Last administered on 02/01/18at 09: 11; Start 01/31/18 at 21:00 Active Scripts Active Humalog (Insulin Lispro) 100 Unit/1 Ml Insuln.pen 12 Units SQ TIDAC 30 Days Lantus Solostar (Insulin Glargine,Hum.rec.anlog) 100 Unit/1 Ml Insuln.pen 26 Units SQ QHS 30 Days Culturelle (Lactobacillus Rhamnosus Gg) 1 Each Cap.sprink 1 Cap PO BID 7 Days Sertraline Hcl 50 Mg Tablet 150 Mg PO DAILY 30 Days Tylenol (Acetaminophen) 325 Mg Tablet 650 Mg PO Q4HRS PRN Hydrocodone-Apap 5-325 (Hydrocodone Bit/Acetaminophen) 1 Each Tablet 1 Tab PO Q4HRS PRN Atorvastatin Calcium 10 Mg Tablet 10 Mg PO QHS 30 Days Cefpodoxime Proxetil 100 Mg Tablet 200 Mg PO BID 7 Days Glucophage Xr (Metformin Hcl) 500 Mg Tab.er.24h 500 Mg PO DAILYWBKFT 30 Days Glipizide Er (Glipizide) 2.5 Mg Tab.er.24 10 Mg PO DAILY08 30 Days Allopurinol 100 Mg Tablet 200 Mg PO DAILY 30 Days Protonix (Pantoprazole Sodium) 40 Mg Tablet 40 Mg PO DAILYAC Reported Latanoprost 2.5 Ml Drops 1 Drop EACHEYE QHS Toprol Xl (Metoprolol Succinate) 50 Mg Tab.er.24h 50 Mg PO DAILY Tricor (Fenofibrate Nanocrystallized) 145 Mg Tablet 145 Mg PO DAILY Gabapentin 300 Mg Capsule 300 Mg PO TID Cosopt Pf Eye Drops (Dorzolamide/Timolol/Pf) 1 Each Droperette 1 Drop OU BID Aspirin Ec (Aspirin) 325 Mg Tablet.dr 325 Mg PO DAILY Minier 3 1,000 Mg Softgel ([place]-3 Fatty Acids/Fish Oil) 1 Each Capsule 1 Each PO DAILY Vitals/I & O Vital Sign - Last 24 Hours 01/31/18 01/31/18 01/31/18 02/01/18 19:25 20:40 23:29 03:18 Temp 98.5 98.4 98.4 98.5 98.4 98.4 Pulse 69 64 66 Resp 18 18 18 B/P (MAP) 134/69 (90) 132/68 (89) 128/64 (85) Pulse Ox 94 95 95 O2 Delivery Room Air Room Air Room Air Room Air O2 Flow Rate 2.0 02/01/18 02/01/18 02/01/18 02/01/18 07:00 07:30 09:10 11:00 Temp 98.0 98.0 Pulse 63 63 78 Resp 18 18 B/P (MAP) 145/62 (89) 145/62 145/61 (89) Pulse Ox 92 95 O2 Delivery Room Air Room Air Room Air Intake and Output 01/31/18 01/31/18 02/01/18 15:00 23:00 07:00 Intake Total 480 ml Output Total 525 ml Balance -45 ml ANASTASIYA OH MD Feb 01, 2018 15:14
--- NOTE | 2018-02-01 15:21 | DISCH ---
DISCHARGE WITH HOME HEALTH DISCHARGE INFORMATION: Final Diagnosis: Problems Medical Problems: (1) Diabetic foot ulcer Status: Acute Condition on Discharge: Stable CODE STATUS: Code Status: Full HOME HEALTH: Face to Face: I certify this patient is under my care and that I, or a nurse practitioner or physician's assistant store leader working with me, had a face to face encounter that meets the physician face to face encounter requirements with this patient on []. Physical Therapy For: Evalulation/Treatment Occupational Therapy For: Evaluation/Treatment POST DISCHARGE ORDERS: Activity Instructions for Disc: Resume previous activity, Activity as tolerated Weight Bearing Status after Di: Other, see below (no weight bearing plantar left foot wound) DIET AFTER DISCHARGE: ADA Wound/Incision Care: Change dressing Other wound/incision instructi: change dry dressing daily and prn DC TO SNF OTHER: off load left plantar wound FOLLOW-UP: Follow up with: dr. oh 1 week after dismissal from snf TREATMENT/EQUIPMENT ORDERS: Adaptive Equipment Issued: None CERTIFICATION STATEMENT: Certification Statement: Certification Statement: Based on the above finding, I certify that this patient is confined to the home and needs intermittent senior living care, physical therapy and/or speech therapy, or continues to need occupational therapy.~ This patient is under my care, and I have initiated the establishment of the plan of care.~ This patient will be followed by myself or a community physician who will periodically review the plan of care. Home Meds Active Scripts Insulin Lispro (HUMALOG) 100 Unit/1 Ml Insuln.pen, 12 UNITS SQ TIDAC for 30 Days , #5 EACH Prov:ANASTASIYA OH MD 01/31/18 Insulin Glargine,Hum.rec.anlog (LANTUS SOLOSTAR) 100 Unit/1 Ml Insuln.pen, 26 UNITS SQ QHS for 30 Days, #5 EACH Prov:ANASTASIYA OH MD 01/31/18 Lactobacillus Rhamnosus Gg (CULTURELLE) 1 Each Cap.sprink, 1 CAP PO BID for 7 Days, #14 CAP Prov:ANASTASIYA OH MD 01/30/18 Sertraline Hcl (SERTRALINE HCL) 50 Mg Tablet, 150 MG PO DAILY for 30 Days, #90 TAB Prov:ANASTASIYA OH MD 01/30/18 Acetaminophen (TYLENOL) 325 Mg Tablet, 650 MG PO Q4HRS PRN for MILD PAIN / TEMP , #30 TAB Prov:ANASTASIYA OH MD 01/30/18 Hydrocodone Bit/Acetaminophen (HYDROCODONE-APAP 5-325 ) 1 Each Tablet, 1 TAB PO Q4HRS PRN for SEVERE PAIN, #30 TAB Prov:ANASTASIYA OH MD 01/30/18 Atorvastatin Calcium (ATORVASTATIN CALCIUM) 10 Mg Tablet, 10 MG PO QHS for 30 Days, #30 TAB Prov:ANASTASIYA OH MD 01/30/18 Cefpodoxime Proxetil (CEFPODOXIME PROXETIL) 100 Mg Tablet, 200 MG PO BID for 7 Days, #28 TAB Prov:ANASTASIYA OH MD 01/30/18 Metformin Hcl (GLUCOPHAGE XR) 500 Mg Tab.er.24h, 500 MG PO DAILYWBKFT for 30 Days, #30 TAB.SR Prov:ANASTASIYA OH MD 08/25/17 Glipizide (GLIPIZIDE ER) 2.5 Mg Tab.er.24, 10 MG PO DAILY08 for 30 Days, #120 TAB.SR Prov:ANASTASIYA OH MD 08/25/17 Allopurinol (ALLOPURINOL) 100 Mg Tablet, 200 MG PO DAILY for 30 Days, #60 TAB Prov:ANASTASIYA OH MD 08/25/17 Pantoprazole Sodium (PROTONIX) 40 Mg Tablet, 40 MG PO DAILYAC, #30 BOT 5 Refills Prov:ANASTASIYA OH MD 09/28/14 Reported Medications Latanoprost (LATANOPROST) 2.5 Ml Drops, 1 DROP EACHEYE QHS for glaucoma, #7.5 ML 3 Refills 01/28/18 Metoprolol Succinate (TOPROL XL) 50 Mg Tab.er.24h, 50 MG PO DAILY 03/15/13 Fenofibrate Nanocrystallized (TRICOR) 145 Mg Tablet, 145 MG PO DAILY 03/15/13 Gabapentin (GABAPENTIN) 300 Mg Capsule, 300 MG PO TID 03/15/13 Dorzolamide/Timolol/Pf (COSOPT PF EYE DROPS) 1 Each Droperette, 1 DROP OU BID for glaucoma 03/15/13 Aspirin (ASPIRIN EC) 325 Mg Tablet.dr, 325 MG PO DAILY 03/15/13 [place]-3 Fatty Acids/Fish Oil (OMEGA 3 1,000 MG SOFTGEL) 1 Each Capsule, 1 EACH PO DAILY 03/15/13 Discontinued Reported Medications Sertraline Hcl (SERTRALINE HCL) 100 Mg Tablet, 100 MG PO DAILY 03/15/13 Exenatide (BYETTA) 10 Mcg/0.04 Ml Pen.injctr, 10 MCG SQ BID 03/15/13 Discontinued Scripts Exenatide (BYETTA) 10 Mcg/0.04 Ml Pen.injctr, 10 MCG SQ BID, #60 EACH Prov:ANASTASIYA OH MD 08/25/17 ANASTASIYA OH MD Feb 01, 2018 15:21
--- NOTE | 2018-02-01 15:49 | PDOC ---
Provider Note Provider Note discharge summary dictated # [id number] ANASTASIYA OH MD Feb 01, 2018 15:49
--- NOTE | 2018-02-01 16:09 | DS ---
DATE OF DISCHARGE: 02/01/2018 CONSULTANTS: Dr. Harvinder Sterling. FINAL DIAGNOSES: 1. Infected diabetic left plantar foot ulcer with cellulitis. 2. Diabetes mellitus type 2 with nephropathy. 3. Chronic kidney disease, stage 3. 4. Diabetes mellitus with peripheral neuropathy and hyperglycemia. 5. Coronary artery disease. HOSPITAL COURSE: The patient is a 77-year-old white male with history of diabetes mellitus type 2 with diabetic nephropathy, chronic kidney disease stage 3, hypertension, hyperlipidemia, coronary artery disease noted a 2-day history of pain and redness in his plantar aspect of his foot. He saw an orthopedist, Dr. Pop who noted that he had a diabetic foot ulcer with cellulitis in left foot, told him to go to the Emergency Room at [facility] where he did and started on IV antibiotics. MRI of the left foot showed no evidence of osteomyelitis. He was seen in consultation by Dr. Harvinder Sterling. He was treated with IV Zyvox and meropenem as he has an allergy to PENICILLIN. The patient's antibiotics eventually were switched to oral Vantin. His wound eventually closed. He received physical therapy to offload his wound. We wanted to send him to a assisted facility, but his insurance denied it, so he will be dismissed to home with home health. He was told to offload the left plantar wound, so it would not open up again. He was given a special type of shoe to help him. He will be dismissed to home. While he was in the hospital, he was started on insulin, but we will discontinue that and put him on Byetta and glipizide, which is what he took at home. DISCHARGE MEDICATIONS: He will be dismissed on allopurinol 200 mg every day, aspirin 325 mg every day, atorvastatin 10 mg every day, Byetta 10 mg subcutaneous b.i.d., gabapentin 300 mg t.i.d., glipizide ER 10 mg every day, Lovaza 4 grams daily, metoprolol succinate 50 mg every day, Protonix 40 mg every day, sertraline 150 mg every day, TriCor 145 mg every day and also, he will be dismissed on Vantin 200 mg b.i.d. for 7 more days. DISCHARGE PLAN: We will make an appointment to see Dr. Arnett in the office next week. He will be dismissed to home with home health with home physical and occupational therapy. ANASTASIYA ARNETT MD DR: SAMEER/blanka JOB#: [id number] / [id number]
== END 2018-02-01 16:30 | disposition home health service (06) | DRG 872 ==
LOC: ER 15:12 → 4 NORTH 17:00
PROVIDERS: ADMIT Internal Medicine; ATTEND Internal Medicine
DX: A41.9 Sepsis, unspecified organism (principal); L03.116 Cellulitis of left lower limb; E11.621 Type 2 diabetes mellitus with foot ulcer; N18.3 Chronic kidney disease, stage 3 (moderate); I25.10 Atherosclerotic heart disease of native coronary artery without angina pectoris; I12.9 Hypertensive chronic kidney disease with stage 1 through stage 4 chronic kidney disease, or unspecified chronic kidney disease; E11.22 Type 2 diabetes mellitus with diabetic chronic kidney disease; E78.5 Hyperlipidemia, unspecified; E11.21 Type 2 diabetes mellitus with diabetic nephropathy; M10.9 Gout, unspecified; K21.9 Gastro-esophageal reflux disease without esophagitis; K57.90 Diverticulosis of intestine, part unspecified, without perforation or abscess without bleeding; K20.9 Esophagitis, unspecified; F32.9 Major depressive disorder, single episode, unspecified; E04.2 Nontoxic multinodular goiter; L97.522 Non-pressure chronic ulcer of other part of left foot with fat layer exposed; F41.9 Anxiety disorder, unspecified; M19.90 Unspecified osteoarthritis, unspecified site; E11.628 Type 2 diabetes mellitus with other skin complications; E11.42 Type 2 diabetes mellitus with diabetic polyneuropathy; E11.65 Type 2 diabetes mellitus with hyperglycemia; H91.90 Unspecified hearing loss, unspecified ear; Z98.41 Cataract extraction status, right eye; Z86.718 Personal history of other venous thrombosis and embolism; Z86.711 Personal history of pulmonary embolism; Z88.0 Allergy status to penicillin
CPT/HCPCS: 36415; 71045; 73630; 73718; 80048; 80053; 81001; 82962; 83036; 85025; 85651; 87040; 87071; 87075; 87186; 87493; 93005; 96365; J1644; J1815; J2185; J3370; J3490; J7040; 97110; 97116; 97530; 97535; 99285-25

== ENCOUNTER 2018-05-29 17:13 | Emergency (ER) | payer MEDICARE ==
[~2018-05-29] VITALS: Ht 172.7 cm; Wt 88.5 kg
[~2018-05-29 17:13] MED LIST changes: +ACET325T9 PO; +ATOR10TA60 PO; +CEFP100T PO; -GABA-586 PO; +GABA300C18 PO; -HYDR-2758 PO; +HYDR-2761 PO; +INSU100I11 SQ; +INSU100I13 SQ; +LACT1CAP19 PO; +LATA2.5D3 EACHEYE; +SERT50TA8 PO
[2018-05-29 18:00] VITALS: BP 145/66
[2018-05-29] MEDS ORDERED: CYCL10TA2 PO (20:16)
[2018-05-29] MEDS ORDERED: HYDR-3164 PO (20:16)
--- NOTE | 2018-05-29 20:16 | PHYS DOC ---
Past Medical History Past Medical History: Diabetes-Type II, Hypertension, Other Additional Past Medical Histor: SHINGLES (ALETA PRESLEY APRN) Past Surgical History: Other Additional Past Surgical Histo: R LEG SX, BACK SX (ALETA PRESLEY APRN) Alcohol Use: None Drug Use: None (ALETA PRESLEY APRN) Adult General Chief Complaint Chief Complaint: LOWER BACK PAIN OR INJURY HPI HPI Patient is a 77 year old male with history of diabetes type 2, hypertension, who presents to the ED today complaining of 10 out of 10 right-sided low back pain that began last week. Patient states he slipped and fell on ice twice last week. Denies any loss of consciousness, denies any pain radiating to bilateral lower extremities. Denies any loss of bowel bladder function. He states his been trying to use eehb-[id number]-[id number] remedies with no relief. (ALETA PRESLEY APRN) Review of Systems Review of Systems Constitutional: Denies fever or chills [] GI: Denies abdominal pain, nausea, vomiting, bloody stools or diarrhea [] : Denies dysuria or hematuria [] Musculoskeletal: Reports right low back pain Integument: Denies rash or skin lesions [] Neurologic: Denies headache, focal weakness or sensory changes [] All other systems were reviewed and found to be within normal limits, except as documented in this note. (ALETA PRESLEY APRN) Allergies Allergies Allergies Coded Allergies Type Severity Reaction Last Updated Verified Penicillins Allergy Intermediate 01/25/18 Yes metronidazole Allergy Intermediate 01/25/18 Yes niacin Allergy Intermediate 01/25/18 Yes (NAYELI REICH MD) Physical Exam Physical Exam Constitutional: Well developed, well nourished, no acute distress, non-toxic appearance. [] Abdomen: Bowel sounds normal, soft, no tenderness, no masses, no pulsatile masses. [] Skin: Warm, dry, no erythema, no rash. [] Back: Diffuse paraspinal muscle tenderness the right lumbar spine, no midline lumbar spine tenderness, no CVA tenderness. Negative bilateral straight leg raises. Extremities: No tenderness, no cyanosis, no clubbing, ROM intact, no edema. [] Neurologic: Alert and oriented X 3, normal motor function, normal sensory function, no focal deficits noted. [] Psychologic: Affect normal, judgement normal, mood normal. [] (ALETA PRESLEY APRN) Current Patient Data Vital Signs Vital Signs Date Time Temp Pulse Resp B/P (MAP) Pulse Ox O2 Delivery O2 Flow Rate FiO2 05/29/18 18:00 98.7 74 18 145/66 (92) 97 Room Air 98.7 (NAYELI REICH MD) EKG EKG [] (ALETA PRESLEY APRN) Radiology/Procedures Radiology/Procedures [] (ALETA PRESLEY APRN) Course & Med Decision Making Course & Med Decision Making Pertinent Labs and Imaging studies reviewed. (See chart for details) This is a 77-year-old male patient presenting to the ED today with complaints of right low back pain status post falling twice last week. No midline tenderness on exam of the lumbar spine. Lumbar spine x-rays interpreted by Dr. Holland are negative for any acute findings. Patient was discharged to home. Ice elevation encouraged. Follow-up with PCP in one week. (ALETA PRESLEY APRN) Course & Med Decision Making Staff Physician Addendum: I was working in the ER during the course of this patient's visit. I was available for consultation as needed, but I was not directly involved in the care of this patient. (NAYELI REICH MD) Dragon Disclaimer Dragon Disclaimer This electronic medical record was generated, in whole or in part, using a voice recognition dictation system. (ALETA PRESLEY APRN) Departure Departure Impression: Primary Impression: Fall from standing Additional Impression: Lumbar contusion Disposition: 01 HOME, SELF-CARE Condition: STABLE Referrals: ANASTASIYA OH MD (PCP) Follow-up in one week Patient Instructions: Contusion, [id number], Fall Prevention and Home Safety Additional Instructions: You were evaluated in the emergency room for back pain after falling. Your lumbar spine x-rays are negative for any acute findings. Take the prescribed medications as needed for pain. Follow-up with your doctor in 1-2 weeks. Scripts Cyclobenzaprine Hcl (CYCLOBENZAPRINE HCL) 10 Mg Tablet 1 TAB PO TID, #30 TAB Prov: ALETA PRESLEY APRN 05/29/18 Hydrocodone/Apap 5-325 (NORCO 5-325 TABLET) 1 Each Tablet 1 TAB PO Q6HRS, #10 TAB Prov: ALETA PRESLEY APRN 05/29/18 Problem Qualifiers Primary Impression: Fall from standing Encounter type: initial encounter Qualified Codes: W19.XXXA - Unspecified fall, initial encounter Additional Impression: Lumbar contusion Encounter type: initial encounter Qualified Codes: S30.0XXA - Contusion of lower back and pelvis, initial encounter ALETA PRESLEY APRN May 29, 2018 20:16 NAYELI REICH MD May 29, 2018 21:56
--- NOTE | 2018-05-29 20:57 | RAD ---
Indication: 2 falls over last week. Right lower back pain TECHNIQUE: 3 views of the lumbar spine COMPARISON: None FINDINGS: The lumbar spine is in normal anatomic alignment. No compression deformities. Multilevel bridging large osteophytes are seen. Intervertebral disc space narrowing seen at L5 and L5-S1. Most likely bilateral L5 pars defect. No anterolisthesis. SI joints within normal limits. IMPRESSION: 1. No compression deformities. 2. Moderate to advanced degenerative disc disease at L4-5 and L5-S1. 3. Questionable L5 pars defect with no anterolisthesis. Electronically signed by: Cb Valdez DO (05/29/2018 8:54 PM) [facility]
== END 2018-05-29 20:25 | disposition home or self-care (01) ==
LOC: ER 17:13
DX: S30.0XXA Contusion of lower back and pelvis, initial encounter (principal); I10 Essential (primary) hypertension; E11.9 Type 2 diabetes mellitus without complications; Z88.0 Allergy status to penicillin; Z88.8 Allergy status to other drugs, medicaments and biological substances; W00.2XXA Other fall from one level to another due to ice and snow, initial encounter; Y93.89 Activity, other specified; Y92.89 Other specified places as the place of occurrence of the external cause; Y99.8 Other external cause status
CPT/HCPCS: 72100; 99283

== ENCOUNTER 2018-11-27 14:59 | Emergency (ER) | payer MEDICARE ==
[~2018-11-27] VITALS: Ht 177.8 cm; Wt 86.2 kg
[~2018-11-27 14:59] MED LIST changes: +CYCL10TA2 PO; +HYDR-3164 PO; -PANT40TA3 PO; +PANT40TA77 PO
[2018-11-27 15:25] VITALS: BP 146/105
[2018-11-27] MEDS ORDERED: LIDOCAINE 1% PF 2 ML VIAL. INJ ONE (15:30)
[2018-11-27] MEDS ORDERED: NEOMY/BACITR/POLYMYXIN OINT PACKET. TP ONE (15:30)
[2018-11-27] MEDS ORDERED: CEPH-264 PO (16:31)
--- NOTE | 2018-11-27 16:33 | PHYS DOC ---
Past Medical History Past Medical History: Anxiety, CAD, Depression, Diabetes-Type II, GERD, G [place], High Cholesterol, Hypertension, Other Additional Past Medical Histor: SHINGLES, gout, neuropathy Past Surgical History: Other Additional Past Surgical Histo: R LEG SX, BACK SX Alcohol Use: None Drug Use: None Adult General Chief Complaint Chief Complaint: LACERATION/AVULSION HPI HPI Patient is a 78 year old male who presents to the ER with complaints of a laceration to the palmar aspect of his left middle finger distal to the DIP. Pt states he was getting a paper towel out of a paper towel dispenser at [facility] when he cut his finger. He is unsure of when his last tetanus shot was. He rates his pain a 2/10, and denies any alleviating or exacerbating factors. Pt states he is a type 2 diabetic. ROS Pt denies any fever, numbness, tingling, or weakness of affected finger. All other ROS is neg unless otherwise noted in HPI. Review of Systems Review of Systems See Above Current Medications Current Medications Current Medications Medications (Trade) Dose Ordered Sig/Jaylan Start Time Stop Time Status Last Admin Dose Admin Lidocaine HCl (Xylocaine-Mpf 1% 2ml Vial) 4 ml 1X ONCE 11/27/18 15:30 11/27/18 15:31 DC 11/27/18 15:48 4 ML Neomycin/ Polymyxin/ Bacitracin (Triple Antibiotic Ointment) 1 pkt 1X ONCE 11/27/18 15:30 11/27/18 15:31 DC 11/27/18 15:48 1 PKT Allergies Allergies Allergies Coded Allergies Type Severity Reaction Last Updated Verified Penicillins Allergy Intermediate 01/25/18 Yes metronidazole Allergy Intermediate 01/25/18 Yes niacin Allergy Intermediate 01/25/18 Yes Physical Exam Physical Exam See Above Constitutional: Well developed, well nourished, no acute distress, non-toxic appearance. [] HENT: Normocephalic, atraumatic, bilateral external ears normal, nose normal. [] Eyes: conjunctiva normal, no discharge. [] Neck: Normal range of motion, no stridor. [] Cardiovascular:Heart rate regular rhythm Lungs & Thorax: Respirations even and unlabored, no retractions, no respiratory distress Skin: Warm, dry, no erythema, no rash; 1.5 cm laceration distal to the DIP on the palmar aspect of left hand 3rd finger, no active bleeding. [] Extremities: No tenderness, no cyanosis, no clubbing, ROM intact, no edema. [] Neurologic: Alert and oriented X 3, normal motor function, normal sensory function, no focal deficits noted. [] Psychologic: Affect normal, judgement normal, mood normal. [] Current Patient Data Vital Signs Vital Signs Date Time Temp Pulse Resp B/P (MAP) Pulse Ox O2 Delivery O2 Flow Rate FiO2 11/27/18 15:25 98.3 74 16 146/105 (119) 97 Room Air 98.3 EKG EKG [] Radiology/Procedures Radiology/Procedures Laceration Repair by me: Anesthesia: 1% lidocaine locally 2.5 ml Location: left middle finger Tendon/Joint/Nerves: No injury Foreign body: None detected after copious irrigation and exploration Technique: 3 Simple Interrupted Sutures with 4-0 Ethilon Complexity: No subcutaneous sutures/mucosal repair/edge excision Post Closure Length: 1.5 cm Patient's bleeding was easily controlled in the department and there is no indication of anemia. No evidence of compartment syndrome, neurologic injury, vascular injury, open joint, tendon laceration, or foreign body. Patient is appropriate for outpatient follow up. Course & Med Decision Making Course & Med Decision Making Pertinent Labs and Imaging studies reviewed. (See chart for details) Dx: left middle finger laceration wound repair as documented. Pt was given Tdap in the ER as he was unsure of last tetanus immunization. Rx for keflex written for prophylaxis, pt cut himself on a public restroom paper towel dispenser. Return to ER in 10d for suture removal. Patient verbalized an understanding of home care, medications, follow-up, and return to ED instructions and was in agreement with the plan of care. [] Dragon Disclaimer Dragon Disclaimer This electronic medical record was generated, in whole or in part, using a voice recognition dictation system. Departure Departure Impression: Primary Impression: Laceration of middle finger of left hand without complication Additional Impression: Need for Tdap vaccination Disposition: 01 HOME, SELF-CARE Condition: STABLE Referrals: ANASTASIYA OH MD (PCP) Patient Instructions: Fingertip Laceration Additional Instructions: Fill the prescription and use it as directed. You may take Tylenol or ibuprofen as needed for pain. Keep the dressing that was applied today in place for the next 24 hours, then change the dressing twice daily and as needed, applying antibiotic ointment with dressing changes. Return to the emergency room or follow-up with your primary care doctor in 10 days to have the sutures removed. Return sooner if you develop signs of infection including fever, redness, warmth, or pus drainage. Scripts Cephalexin (KEFLEX) 500 Mg Capsule 1 CAP PO BID, #14 CAP Prov: JOSÉ HAMILTON APRN 11/27/18 Problem Qualifiers Primary Impression: Laceration of middle finger of left hand without complication Encounter type: initial encounter Qualified Codes: S61.213A - Laceration without foreign body of left middle finger without damage to nail, initial encounter JOSÉ HAMILTON APRN Nov 27, 2018 16:33
[2018-11-27] MEDS ORDERED: DIPHTH,PERTUSS(ACELL),TET TOX 0.5 ML DISP.SYRIN. VAX IM ONE (17:00)
== END 2018-11-27 17:04 | disposition home or self-care (01) ==
LOC: ER 14:59
DX: S61.213A Laceration without foreign body of left middle finger without damage to nail, initial encounter (principal); F41.9 Anxiety disorder, unspecified; F32.9 Major depressive disorder, single episode, unspecified; K21.9 Gastro-esophageal reflux disease without esophagitis; E78.00 Pure hypercholesterolemia, unspecified; E11.39 Type 2 diabetes mellitus with other diabetic ophthalmic complication; H42 Glaucoma in diseases classified elsewhere; E11.40 Type 2 diabetes mellitus with diabetic neuropathy, unspecified; I10 Essential (primary) hypertension; Z88.0 Allergy status to penicillin; Z88.8 Allergy status to other drugs, medicaments and biological substances; W26.8XXA Contact with other sharp object(s), not elsewhere classified, initial encounter; Y93.89 Activity, other specified; Y92.89 Other specified places as the place of occurrence of the external cause; Y99.8 Other external cause status
CPT/HCPCS: 12001; 90471; 90715; 99283

== ENCOUNTER → 2019-03-06 | Outpatient (CLI) | payer MEDICARE ==
[~2019-03-06] MED LIST changes: +CEPH-264 PO; +OMEP40CA45 PO; -OMEP40CA5 PO
--- NOTE | 2019-03-06 16:24 | RAD ---
EXAM: Lower extremity arterial Doppler sonogram with left ankle-brachial indices (CLEO). HISTORY: Left foot wound. TECHNIQUE: Doppler sonographic evaluation of the lower extremities was performed and pressure readings were assessed. FINDINGS: Right brachial pressure: 125 mmHg Left brachial pressure: 114 mmHg Left ankle pressure (posterior tibial artery): 140 mmHg Left ankle pressure (dorsalis pedis artery): 146 mmHg Left CLEO: 1.2 There are biphasic and triphasic waveforms throughout the lower extremity arteries, with exception of the left peroneal artery which is not seen. There is a mildly elevated peak systolic velocity within the common femoral artery. There are normal peak systolic velocities within the remainder of the visualized lower extremity arteries. IMPRESSION: 1. Normal left CLEO. 2. Nonvisualization of the left peroneal artery. This may be due to technique or occlusion. 3. Mildly elevated peak systolic velocity within the left common femoral artery, suggesting a component of mild stenosis. The remainder of the visualized lower extremity arteries demonstrate normal peak systolic velocities. Electronically signed by: Anisa Penaloza MD (03/06/2019 4:21 PM) [id number]
== END | disposition home or self-care (01) ==
LOC: US 14:03
PROVIDERS: ATTEND Emergency Medicine Undersea and Hyperbaric Medicine
DX: L97.522 Non-pressure chronic ulcer of other part of left foot with fat layer exposed (principal)
CPT/HCPCS: 93922; 93926

== ENCOUNTER 2021-07-01 07:46 | Day surgery (SDC) | payer MEDICARE ==
[~2021-07-01] VITALS: Ht 175.3 cm; Wt 77.2 kg
[~2021-07-01 07:46] MED LIST changes: +AMLO-186 PO; +ASCO500T4 PO; +CYCL10TA19 PO; -CYCL10TA2 PO; +DEXAMETHASONE SOD PHOS 4 MG/ML VIAL ONE; +HYDROmorphone 2 MG/ML INJ. IVP PRN; +INSU100V35 SQ; +INSU100V6 SQ; +IV RINGERS,LACTATED 1000ML 1,000 ML IV SCH; +LAMO25TA5 PO; +LIDOCAINE 1% PF 5 ML VIAL. ONE; +LINE600T12 PO; +MORPHINE SULFATE 2 MG/ML INJ. IVP PRN; +NITR0.4T24 SL; -OMEP40CA45 PO; +OMEP40CA7 PO; +ONDANSETRON PF 4 MG/2 ML VIAL. ONE; +PROCHLORPERAZINE 10 MG/2 ML VIAL. IVP PRN; +PROPOFOL 10 MG/ML (20ML) VIAL. IV ONE; +SERT-267 PO; +SERT-268 PO; -SERT100T8 PO; -SERT50TA8 PO; +SPIR25TA PO; +fentaNYL PF VIAL 100 MCG/2 ML VIAL IVP PRN; +fentaNYL PF VIAL 100 MCG/2 ML VIAL ONE
[2021-07-01 08:27] VITALS: BP 125/59
[2021-07-01] MEDS ORDERED: INSULIN LISPRO 100 UNIT/ML 3ML VIAL for OP,RR ONLY. SQ PRN (08:45)
[2021-07-01] MEDS ORDERED: INSULIN LISPRO 100 UNIT/ML 3ML VIAL for OP,RR ONLY. SQ ONE (09:05)
[2021-07-01] MEDS ORDERED: BUPIVACAINE MPF 0.25% 30 ML VIAL. ONE (09:55)
--- NOTE | 2021-07-01 11:22 | SSS ---
DATE OF SERVICE: 07/01/2021 ADMIT DATE: 07/01/2021 SHORT STAY SUMMARY CHIEF COMPLAINT: Left foot diabetic lesion. HISTORY OF PRESENT ILLNESS: The patient is a pleasant 81-year-old retired [employer] worker. Basically, he has got a left diabetic foot ulcer on the ball of his first toe. Dr. Garcia has taken him to surgery today. We have been requested for preoperative evaluation. PAST MEDICAL HISTORY: Diabetes, major depression, hard of hearing, hypertension, hyperlipidemia, left foot ulcer. ALLERGIES: PENICILLIN. FAMILY HISTORY: Hypertension. SOCIAL HISTORY: He is retired from [employer]. He does not drink, smoke or take drugs. He has been for 37 years. MEDICATIONS: Reviewed, please refer to the MRAD. REVIEW OF SYSTEMS: GENERAL: No history of weight change, weakness or fevers. SKIN: No bruising, hair changes or rashes. EYES: No blurred, double or loss of vision. NOSE AND THROAT: No history of nosebleeds, hoarseness or sore throat. HEART: No history of palpitations, chest pain or shortness of breath on exertion. LUNGS: Denies cough, hemoptysis, wheezing or shortness of breath. GASTROINTESTINAL: Denies changes in appetite, nausea, vomiting, diarrhea or constipation. GENITOURINARY: No history of frequency, urgency, hesitancy or nocturia. NEUROLOGIC: Denies history of numbness, tingling, tremor or weakness. PSYCHIATRIC: No history of panic, anxiety or depression. ENDOCRINE: No history of heat or cold intolerance, polyuria or polydipsia. EXTREMITIES: Denies muscle weakness, joint pain, pain on walking or stiffness. PHYSICAL EXAMINATION: VITALS: Within normal limits and are stable. GENERAL: No apparent distress. Alert and oriented. HEENT: He has hearing aids in. EYES: Extraocular muscles are intact, pupils are equally round and reactive to light and accommodation MUSCULOSKELETAL: Well developed, well nourished, good range of motion ENDOCRINE: No thyromegaly was palpated LYMPHATICS: No cervical chain or axillary nodes were noted HEMATOPOIETIC: No bruising NECK: Supple, no JVD, no thyromegaly was noted. LUNGS: Clear to auscultation in all lung chapman without rhonchi or wheezing. HEART: RRR, S1, S2 present. Peripheral pulses intact, no obvious murmurs were noted. ABDOMEN: Soft, nontender. Positive bowel sounds no organomegaly, normal bowel sounds. EXTREMITIES: He has a small diabetic lesion on the left toe. NEUROLOGIC: He is hard of hearing. PSYCHIATRIC: Normal affect, normal mood. Stable. SKIN: No ulcerations or rashes, good skin turgor, no jaundice. VASCULAR: Good capillary refill, neurovascular bundle appears to be intact. ASSESSMENT AND PLAN: Diabetic foot lesion. He seems to be clinically stable today. He is at low risk for intraoperative or postoperative complications. We will clear him for surgery. Postoperatively, he is going to need wound care, pain meds and physical therapy. If he needs to be admitted, please call me. Thank you very much for allowing us to participate in the care of this nice gentleman. DINORAH DR: Toni TID: [id number] CC: Kasey Garcia DPM
--- NOTE | 2021-07-01 12:03 | PDOC4 ---
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 A timeout was performed to confirm patient's identity, location of surgery and procedure. After induction of general anesthesia, a pneumatic left thigh tourniquet was placed with pressure set 250 mmHg. The left lower extremity was then scrubbed, prepped and draped in the usual sterile manner. The left lower extremity was elevated for gravity exsanguination and the tourniquet was inflated to 250 mmHg. Then the incision was directed to the left posterior distal Achilles where three x 3mm stab incisions were carried out at 2 cm, 5 cm and 8 cm proximal from the Achilles insertion site. Then using a Bartow blade, staggered and maren-tenotomy was performed at the medial, lateral and medial aspect of the Achilles tendon sequentially. Then passive ankle joint dorsiflexion was noted at 0 degree neutral. The surgical sites were irrigated with copious saline solution and closed with3-0 nylon. Then the attention was directed to the lateral cuboid sulcus. Under ultrasound guidance, a 2 cm incision was made parallel to the palpated PB tendon at the level of the cuboid sulcus. The incision was carried deep with a combination of sharp and blunt dissection with care to protect and retract all the neurovascular bundles, including sural nerve. At this time, PB tendon was visualized and PL tendon was identified just posterior and inferior to the PB tendon. Mobilization of the PB tendon remarked plantarflexion of the first ray. Then the PB tendon was resected at the level of the cuboid sulcus. Then passive dorsiflexion across the first ray remarked adequate retraction of the PL tendon stumps. And we also noted less plantar contracture across the first TMT. Then the attention was directed to the dorsal first metatarsal where ultrasound was used to identify the proximal first metatarsal metaphysis, approximately 1 to 1.5 cm distal to the first TMT. A dorsal medial incision was made over the proximal first metatarsal metaphysis, approximately 3 cm. The incision was carried deep with a combination of sharp and blunt dissection with care to protect and retract all the neurovascular bundles. We elevated the EHL and tibialis anterior tendon off the base of the first metatarsal to visualize the metatarsal shaft. Then two 0.054 inch K wire was used to indra out the wedge osteotomy with the proximal wire parallel to the first TMT and the distal wire perpendicular to the first metatarsal axis where the 2 wires meet at the plantar cortex hinge. Approximately 4 to 5 mm dorsal wedge was remarked. Then a sagittal saw was used to perform the osteotomy in the dorsal 5 mm wedge was removed with the plantar cortex preserved. The surgical site was irrigated with copious saline solution. Upon manual osteotomy reduction, adequate apposition was noted with dorsiflexion of the first ray now parallel to the lesser met atarsal heads. Then 2 metallic Arthrex demetri, 11 and 13 mm, were used to affix and maintain a compression across the osteotomy site. Again we noted adequate elevation of the first metatarsal head and now is parallel to the lesser metatarsal heads. At this time, we noted a contracture of the first MTPJ and IPJ. Because this is a rigid contracture, Baum tenosuspension was not adequate to address the deformity. Rather, the decision was made to reduce the MTPJ contracture through first MTPJ capsulotomy dorsally and lengthening of the EHL. A 2 cm linear incision was made over the medial aspect of the EHL over first MTPJ. The di ssection was carried deep to visualize an isolated EHL which was Z lengthened. The dorsal first MTPJ capsulotomy was performed with a #15 blade. At this time, we noted less contracture across the hallux MTPJ. Then the EHL was repaired with 3-0 Vicryl under minimal to no tension. All the surgical sites were irrigated with copious saline solution. The skins were closed in layers with 3-0 Vicryl, 4 Monocryl and 4-0 nylon. Postoperative anesthesia consisted of 10 cc of 0.25% Marcaine plain was infiltrated to the surgical site for pain control. The surgical foot was dressed with Xeroform, 4 x 4 gauze, soft roll. The left lower extremity was immobilized in a well-padded Baum compression splint with ankle held at 90 degrees. Tourniquet was deflated and adequate digital perfusion was noted to Patient tolerated procedure anesthesia well with vital signs stable and neurovascular status intact. Patient was then transferred to PACU for continued recovery. Pending surgical foot x-ray 3 view in PACU. ROXI GIVENS DPM Jul 01, 2021 12:03
[2021-07-01] MEDS ORDERED: ACETAMINOPHEN 325 MG TABLET. PO ONE (12:15)
[2021-07-01] MEDS ORDERED: GABAPENTIN 100 MG CAPSULE. PO ONE (12:15)
[2021-07-01] MEDS ORDERED: oxyCODONE/APAP 5/325 1 TAB TABLET PO ONE (12:15)
[2021-07-01 13:00] VITALS: BP 135/79
--- NOTE | 2021-07-02 16:37 | RAD ---
Study: XR FOOT_LEFT 3 VIEWS Indication: Postop. Comparison: 06/23/2021 Findings: Casting around the foot, ankle and lower leg limits evaluation. Surgical hardware at the proximal aspect of the first metatarsal. The hardware is intact and well fix ated. Chronic cortical thickening to varying extent along the first through fourth metatarsal shafts. Flexi on deformities of the toes. No new fracture is identified. No progressive arthrosis. Incompletely randy luated degenerative changes at the ankle and malleoli. Impression: 1. The study is limited by overlying casting material. 2. Interval operative changes of the proximal aspect of the first metatarsal. No complication is iden tified. No newly apparent fracture or progressive arthrosis. Electronically signed by: SEPIDEH STILL MD (07/02/2021 4:34 PM) [id number]
== END 2021-07-01 14:42 | disposition home or self-care (01) ==
LOC: SURG 07:46
PROVIDERS: ATTEND Podiatrist
DX: E11.621 Type 2 diabetes mellitus with foot ulcer (principal); I25.10 Atherosclerotic heart disease of native coronary artery without angina pectoris; I10 Essential (primary) hypertension; E78.00 Pure hypercholesterolemia, unspecified; E66.9 Obesity, unspecified; G47.30 Sleep apnea, unspecified; M19.90 Unspecified osteoarthritis, unspecified site; M10.9 Gout, unspecified; N40.0 Benign prostatic hyperplasia without lower urinary tract symptoms; F41.9 Anxiety disorder, unspecified; F32.9 Major depressive disorder, single episode, unspecified; Z87.891 Personal history of nicotine dependence; Z79.82 Long term (current) use of aspirin; Z79.899 Other long term (current) drug therapy; Z98.890 Other specified postprocedural states; Z88.0 Allergy status to penicillin; Z88.2 Allergy status to sulfonamides; Z88.8 Allergy status to other drugs, medicaments and biological substances
CPT/HCPCS: 27685; 27687; 28306; 28760; 73630; 82962; 97116; 97162; 97530; A4930; A6253; A6402; A6449; A6450; C1713; J0690; J1100; J1815; J2405; J2704; J3010; J3490